=== PATIENT | female | born 1960 | race Caucasian/White ===

== ENCOUNTER → 2016-04-28 | Outpatient (CLI) | payer OTHER ==
--- NOTE | 2016-04-28 23:35 | WWHP ---
DATE OF SERVICE: 04/28/2016 CHIEF COMPLAINT: Patient is here for her routine gynecologic exam and mammogram HPI: This is a 55-year-old G1, P0-0-0-1-0 with a LMP of 2006. She states it has been 15 to 20 years since her last pelvic exam. She denies any postmenopausal bleeding. She has infrequent hot flashes and this is much improved from several years ago. She is without gynecologic complaints. PAST MEDICAL HISTORY: She is status post aortic valve replacement in 2016. She denies any other medical problems. Dr. Schuster is her primary care physician. MEDICATIONS: 1. Metoprolol 25 mg b.i.d. 2. Lovastatin 20 mg daily. 3. Ecotrin 325 mg daily. 4. Fluticasone cream 0.05% b.i.d. ALLERGIES: Known drug allergies but she does have a sensitivity to nickel. PAST SURGICAL HISTORY: D&C in the past, aortic valve replacement in 2015 and this was a bovine valve replacement, tonsillectomy in the past, laparoscopy in the 1980s. PAST OBSTETRICAL HISTORY: One spontaneous that did require D&C. 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 SOCIAL HISTORY: She admits to smoking 1 pack of cigarettes per day and has about 4 alcoholic drinks per week. She denies drug use. She is and is not seeing anybody at this time. 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 She also works at the [employer]. 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 FAMILY HISTORY: Mother had lung cancer. Father had an LA. Mother also had borderline diabetes. REVIEW OF SYSTEMS: Weight has been stable. She denies respiratory, cardiac, or GI problems. PHYSICAL EXAM: Blood pressure 121/67. Height 5 feet 4 inches. Weight 135 pounds. Temperature 97.5, pulse 82. This a well-developed, well-nourished white female who is alert and oriented x3, in no acute distress. HEENT: Within normal limits. NECK: Supple without mass or thyromegaly. CHEST AND LUNGS: Clear to auscultation. HEART: Regular rate and rhythm. BREASTS: Without mass or discharge. Axillary exam is negative for adenopathy. BACK: Negative for CVA tenderness. ABDOMEN: Soft, nontender, without palpable masses. PELVIC EXAM: External genitalia reveals mild to moderate atrophy without lesions. Cervix and vagina reveal mild atrophy without lesions. There is no evidence of prolapse. The uterus is mid to anterior, nongravid size and nontender. There are no palpable adnexal masses or tenderness. Rectovaginal exam is negative for mass or tenderness and is negative for occult blood. EXTREMITIES: Nontender. IMPRESSION: 1. A 55-year-old menopausal female with normal gynecologic exam. 2. Smoker. PLAN: 1. Pap smear was performed. 2. Self-breast examination was discussed. 3. Mammogram will be done today. 4. Osteoporosis prevention was discussed. 5. I have recommended that she quit smoking. If she is unable to quit, I have recommended she try to cut back as much as possible. 6. I stressed importance of having annual mammograms and gynecologic exams. 7. She will return in one year.
--- NOTE | 2016-04-30 07:44 | MM ---
Reason for exam: screening (asymptomatic). Last mammogram was performed 14 years ago. History: Patient is postmenopausal and is nulliparous. Physical Findings: A clinical breast exam by your physician is recommended on an annual basis and results should be correlated with mammographic findings. MG Screening Mammo w CAD Bilateral CC and MLO view(s) were taken. There is no discrete abnormality. ASSESSMENT: Negative, BI-RAD 1 RECOMMENDATION: Routine screening mammogram of both breasts in 1 year.
== END | disposition home or self-care (01) ==
LOC: WWCWWP 15:12
PROVIDERS: ATTEND Obstetrics & Gynecology
DX: Z12.31 Encounter for screening mammogram for malignant neoplasm of breast (principal)

== ENCOUNTER → 2019-07-04 | Outpatient (CLI) | payer OTHER ==
--- NOTE | 2019-07-05 08:10 | MM ---
Reason for exam: clinical finding. Last mammogram was performed 3 years and 2 months ago. History: Patient is postmenopausal and is nulliparous. Indicated problem(s): lump or thickening in the left breast. Physical Findings: Nurse Summary: 4cm nodule in the left breast at 12 o'clock (nurse mj). MG 3D Diag Mammo W/Cad GUEVARA Bilateral CC and MLO view(s) were taken. XCCL view(s) were taken of the right breast. Prior study comparison: April 28, 2016, bilateral MG screening mammo w CAD. The breast tissue is heterogeneously dense. This may lower the sensitivity of mammography. There is a 5.0cm mass deep to the left BB marker centered at 12 o'clock. There is overlying skin thickening and nipple retraction. Right focal asymmetry 6-7cm improves on XCCL and spot views however precautionary right upper outer quadrant ultrasound will be performed. These results were verbally communicated with the patient and result sheet given to the patient on 07/04/19. ASSESSMENT: Incomplete: need additional imaging evaluation, BI-RAD 0 RECOMMENDATION: Ultrasound of both breasts. (right upper outer quadrant and left palpable with axilla)
--- NOTE | 2019-07-05 08:12 | USB ---
Reason for exam: additional evaluation requested from abnormal screening. History: Patient is postmenopausal and is nulliparous. US Breast Limited BILAT Left limited breast ultrasound including focal area of concern, retroareolar and axilla demonstrates a 5.3 x 2.2 x 4.7cm solid, hypoechoic, vascular lesion at 12 o'clock. Right limited breast ultrasound including focal area of concern, retroareolar and axilla demonstrates dense tissue. No suspicious right mass. These results were verbally communicated with the patient and result sheet given to the patient on 07/04/19. ASSESSMENT: Highly suggestive of malignancy, BI-RAD 5 RECOMMENDATION: Ultrasound core biopsy of the left breast. Called Dr. Garcia's office with mammographic findings and has scheduled an appointment for the patient with Dr. Nix. Biopsy scheduled for 07/07/19 at 9:00. PRELIMINARY REPORT CALLED AND FAXED TO DR. NIX ON 07/05/19.
== END | disposition home or self-care (01) ==
LOC: RADMAMWWP 11:24
PROVIDERS: ATTEND Family Medicine
DX: N63.20 Unspecified lump in the left breast, unspecified quadrant (principal); R92.8 Other abnormal and inconclusive findings on diagnostic imaging of breast; Z78.0 Asymptomatic menopausal state
CPT/HCPCS: 77066; 76642; G0279; 77062

== ENCOUNTER → 2019-07-05 | Outpatient (CLI) | payer OTHER | END | disposition home or self-care (01) | LOC: LABWHC1 10:39 | PROVIDERS: ATTEND Student in an Organized Health Care Education/Training Program | DX: U07.1 COVID-19 (principal) | CPT/HCPCS: 87635 ==

== ENCOUNTER → 2019-07-07 | Day surgery (SDC) | payer OTHER ==
[2019-07-07 08:37] VITALS: RESP 16; TEMP 98.3
[2019-07-07 09:53] VITALS: BP 122/80; PULSE 61
--- NOTE | 2019-07-07 09:57 | USB ---
EXAMINATION TYPE: US biopsy breast VAD LT DATE OF EXAM: 07/07/2019 CLINICAL HISTORY: R92.8 ABNORMAL MAMMOGRAM. Abnormal ultrasound. Palpable abnormality left breast. TECHNIQUE: Ultrasound guided core biopsy of left breast. COMPARISON: Prior bilateral breast ultrasound and mammogram July 04, 2019 FINDINGS: The procedure of ultrasound guided core biopsy was explained to the patient. Benefits, alt ernatives, and risks were discussed. An informed consent was then obtained. The patient was placed in supine positioning for imaging and for the procedure. Preprocedure ultraso und redemonstrates large heterogeneous oval hypoechoic mass with some vascularity 12:00 position zone A left breast measuring just over 5 cm long axis on prior study. The overlying skin was prepped and draped in usual sterile fashion. Lidocaine was used as anesthetic into the skin and subcutaneous tis leif up to area of concern in the left breast. Under ultrasound guidance, a vacuum assisted biopsy gun device was used to obtain 4 core samples. Fo llowing this, a biopsy clip was left in lesion. The patient tolerated the procedure well without any immediate complication. The patient was kept in the radiology department for short stay after the procedure and then discharged home in stable condi tion. Postprocedure mammogram deferred due to current COVID precautions. Last ultrasound image saved shows clip within the large lesion. IMPRESSION: Successful, uncomplicated ultrasound guided core biopsy of area of concern in the left br east, full pathology results to follow. Intermediate to high index of suspicion noted at time of procedure.
== END ==
LOC: RADUSWWP 08:10
PROVIDERS: ATTEND Student in an Organized Health Care Education/Training Program
DX: C50.912 Malignant neoplasm of unspecified site of left female breast (principal); Z17.0 Estrogen receptor positive status [ER+]
CPT/HCPCS: 88305; 88342; 88341; 19083; A4648; J2001

== ENCOUNTER → 2019-07-19 | Outpatient (CLI) | payer OTHER ==
--- NOTE | 2019-07-19 09:45 | CT ---
EXAMINATION TYPE: CT ChestAbdPelvis w con DATE OF EXAM: 07/19/2019 COMPARISON: None. HISTORY: Invasive lobular carcinoma left breast on biopsy july 06. CT DLP: 1059 mGycm. Automated Exposure Control for Dose Reduction was Utilized. CONTRAST: CT scan of the thorax, abdomen and pelvis is performed with IV Contrast, patient injected with 100 mL of Isovue M300. FINDINGS: LUNGS: Mild to moderate underlying emphysematous changes are present. No suspicious nodules or masses . No pleural effusion or pneumothorax noted bilaterally. MEDIASTINUM: There are no greater than 1 cm hilar or mediastinal lymph nodes. No pericardial effusi on is seen. Overlying sternal wires are seen. Metallic aortic valve noted. There is a 79-year-old an eurysm up to 4.3 cm in diameter without extension into the ascending thoracic aorta. OTHER: Background of fairly dense fibroglandular tissue noted bilaterally in both breasts biopsy clip noted axial image 21. Difficult to identify mass on background dense tissue but likely best seen nestor suring roughly 3.4 cm long axis coronal image 15 12:00 position left breast. No suspicious axillary a denopathy noted bilaterally. LIVER/GB: No significant abnormality is appreciated. PANCREAS: No significant abnormality is seen. SPLEEN: No significant abnormality is seen. ADRENALS: No significant abnormality is seen. KIDNEYS: Symmetric cortical medullary uptake and excretion from both kidneys seen bilaterally. There is a 4.4 cm central thin-walled cyst in the left kidney having some mass effect on the left renal pel vis causing asymmetric left-sided mild hydronephrosis without hydroureter. Bladder poorly distended a nd thus suboptimally evaluated. BOWEL: Low-lying cecum into the right pelvis. No suspicious small or large bowel dilatation. GENITAL ORGANS: Anteverted uterus. Few adjacent pelvic phleboliths. LYMPH NODES: No greater than 1cm abdominal or pelvic lymph nodes are appreciated. OSSEOUS STRUCTURES: Facet arthropathy lower lumbar levels. Slight S-shaped scoliotic curvature with m ild to moderate multilevel spurring in the visualized spine. OTHER: No significant additional abnormality is seen. IMPRESSION: 1. Poor visualization of known 12:00 left breast mass or neoplasm on background dense tissue on CT. No evidence for metastatic disease. 2. Evidence for prior aortic valve replacement surgery with 4.3 cm ascending aortic aneurysm, correla te clinically. 3. Mild left-sided hydronephrosis due to mass effect from central 4.4 cm thin-walled cyst.
== END | disposition home or self-care (01) ==
LOC: RADCTMAIN 08:25
PROVIDERS: ATTEND Student in an Organized Health Care Education/Training Program
DX: I71.2 Thoracic aortic aneurysm, without rupture (principal); N13.30 Unspecified hydronephrosis; N28.1 Cyst of kidney, acquired; C50.912 Malignant neoplasm of unspecified site of left female breast
CPT/HCPCS: 71260; 74177; Q9967

== ENCOUNTER → 2019-07-20 | Outpatient (CLI) | payer OTHER ==
[2019-07-20 10:28] LABS: Basophils # (A) 0.1 k/uL (0-0.2); Basophils % (A) 1 %; Eosinophils # (A) 0.2 k/uL (0-0.7); Eosinophils % (A) 2 %; HCT 45.3 % (34.0-46.0); HGB 14.3 gm/dL (11.4-16.0); Lymphocytes # (A) 2.6 k/uL (1.0-4.8); Lymphocytes % (A) 30 %; MCH 33.3 pg (25.0-35.0); MCHC 31.6 g/dL (31.0-37.0); MCV 105.4 fL (80.0-100.0); Macrocytosis Slight; Mean Platelet Volume 7.2; Monocytes # (A) 0.5 k/uL (0-1.0); Monocytes % (A) 5 %; Neutrophils # (A) 5.3 k/uL (1.3-7.7); Neutrophils % (A) 60 %; Platelet Count 310 k/uL (150-450); RDW 12.4 % (11.5-15.5); WBC 8.8 k/uL (3.8-10.6)
[2019-07-20 10:41] LABS: ALT 14 U/L (4-34); AST 34 U/L (14-36); African American GFR (CKD) >90 (>60 ml/min/1.73 sqM); Alkaline Phosphatase 111 U/L (38-126); Anion Gap 8 mmol/L; Blood Urea Nitrogen 11 mg/dL (7-17); Calcium 10.1 mg/dL (8.4-10.2); Carbon Dioxide 29 mmol/L (22-30); Chloride 100 mmol/L (98-107); Glucose 97 mg/dL (74-99); LDH 579 U/L (313-618); Non-African American GFR(CKD) >90 (>60 ml/min/1.73 sqM); Potassium 4.9 mmol/L (3.5-5.1); Sodium 137 mmol/L (137-145); Total Bilirubin 0.5 mg/dL (0.2-1.3); Total Protein 7.9 g/dL (6.3-8.2)
--- NOTE | 2019-07-21 08:10 | BMR ---
EXAMINATION TYPE: MR breast BILAT wo/w con DATE OF EXAM: 07/20/2019 COMPARISON: Diagnostic mammogram dated 07/04/2019 and bilateral breast ultrasound also dated 07/04/2019. Biopsy of the left breast dated 07/07/2019. HISTORY: Lt breast cancer (invasive lobular carcinoma), Estrogen receiptor positive TECHNIQUE: A series of fat and water weighted images in the long and short axis views of both breasts are obtained in conjunction with dynamic contrast MRI with subtraction technique. The patient was i njected with 6 mL intravenous Gadavist gadolinium contrast. Three-dimensional and additional postpr ocessing imaging is created on independent workstation and reviewed during official interpretation of this study. FINDINGS: The breasts are composed of heterogeneous fibroglandular tissue with mild background parenchymal enha ncement. Susceptibility artifact from the biopsy marker is seen within the left breast mass (biopsy proven inv asive lobular carcinoma) measuring 3.0 x 3.9 x 6.5 cm in anterior posterior by transverse by cranioca udal dimension. This mass is centered at the 12:00 position. There is extension of nonmass enhancemen t from the posterior margin of the left breast mass towards the axillary tail and pectoralis muscle s uch as on postcontrast series 701 image 298 measuring 2.8 cm. There is no abnormal enhancement at thi s time of the adjacent pectoralis muscle. There is extent of this mass from the upper outer quadrant into the upper inner quadrant and lower outer quadrant. There is overlying skin thickening and nipple retraction. The mass also deviates the nipple laterally. Abnormal enhancement of the skin diffusely is seen on the left most prominent directly over the mass with concern for skin involvement. Enhancem ent of this mass is heterogenous with type I-III kinetics (plateau through washout). No suspicious mass or nonmass enhancement is seen within the right breast, however dense breast tissu e does slightly limit the examination. Median sternotomy wires creates susceptibility artifact limiti ng evaluation of abnormal internal mammary adenopathy. No grossly enlarged axillary lymph nodes bilat erally. Evidence of a known aortic aneurysm in the ascending aorta and aortic valvular replacement ar e also present. IMPRESSION: 1. BI-RADS [id number]-lkovjd left breast carcinoma with the mass measuring 3.0 x 3.9 x 6.5 cm and nonma ss enhancement contiguous with the mass extending into the axillary tail measuring an additional 2.8 cm. Additionally there is concern for skin involvement. 2. No suspicious axillary adenopathy bilaterally. No suspicious mass or nonmass enhancement of the ri ght breast.
== END | disposition home or self-care (01) ==
LOC: RADMRIMAIN 09:46
PROVIDERS: ATTEND Internal Medicine Hematology & Oncology
DX: C50.612 Malignant neoplasm of axillary tail of left female breast (principal); C50.212 Malignant neoplasm of upper-inner quadrant of left female breast; C50.912 Malignant neoplasm of unspecified site of left female breast; Z17.0 Estrogen receptor positive status [ER+]
CPT/HCPCS: 80053; 83615; 85025; 36415; C8937; C8908; A9585; 77049

== ENCOUNTER → 2019-07-25 | Outpatient (CLI) | payer OTHER ==
--- NOTE | 2019-07-25 14:56 | NM ---
EXAMINATION TYPE: NM bone scan whole body DATE OF EXAM: 07/25/2019 COMPARISON: 07/19/2019 HISTORY: Breast cancer Delayed whole-body scanning was performed following the injection of 22.9 mCi Tc 99m MDP. Images acq uired 3.5 hours post injection. FINDINGS: Abnormal uptake involving the thoracic spine and lower lumbar spine on the right most likel y degenerative. Abnormal uptake involving the left greater trochanter nonspecific. IMPRESSION: 1. Abnormal uptake throughout the vertebral column most intense uptake seen in the lower lumbar spine . Findings are nonspecific but likely degenerative. 2. Nonspecific uptake greater trochanter left hip. No corresponding CT abnormality is seen. If clinic ally warranted MRI could BE obtained to assess for trochanteric bursitis and to exclude underlying me tastases.
== END | disposition home or self-care (01) ==
LOC: RADNMMAIN 10:08
PROVIDERS: ATTEND Internal Medicine Hematology & Oncology
DX: M48.8X6 Other specified spondylopathies, lumbar region (principal); C50.212 Malignant neoplasm of upper-inner quadrant of left female breast
CPT/HCPCS: 78306; A9503

== ENCOUNTER → 2019-11-08 | Outpatient (CLI) | payer OTHER ==
--- NOTE | 2019-11-08 16:29 | BD ---
EXAMINATION TYPE: Axial Bone Density DATE OF EXAM: 11/08/2019 COMPARISON: NONE CLINICAL HISTORY: Postmenopausal screening Height: 5 FT 4 IN Weight: 114 FRAX RISK QUESTIONS: Alcohol (3 or more units per day): NO Family History (Parent hip fracture): NO Glucocorticoids (More than 3mos): NO (Ex: prednisone, prednisolone, methylprednisolone, dexamethasone, and hydrocortisone). History of Fracture in Adulthood: YES Secondary Osteoporosis: 1. Type 1 Diabetes: NO 2. Hyperthyroidism: NO 3. Menopause before 45: YES 4. Malnutrition: NO 5. Chronic liver disease: NO Rheumatoid Arthritis: NO Current Tobacco Use: YES RISK FACTORS HISTORY OF: Family History of Osteoporosis: NO Active: YES Postmenopausal woman: EARLY 40'S MEDICATIONS: Additional Medications: HORMONE [place] , LIPITOR, METOPROLOL, BABY ASPIRIN Additional History: BREAST CANCER 2019 EXAM MEASUREMENTS: Bone mineral densitometry was performed using the [employer] System. Bone mineral density as measured about the Lumbar spine is: ----- L1-L4(G/cm2): 1.157 T Score Values are as follows: ----- L2: -1.3 ----- L3: 0.2 ----- L4: 0.9 ----- L1-L4: -0.2 BASELINE Bone mineral density about the R hip (g/cm2): 0.686 Bone mineral density about the L hip (g/cm2): 0.797 T Score values are as follows: -----R Neck: -2.5 -----L Neck: -1.7 -----R Total: -2.4 -----L Total: -2.1 BASELINE IMPRESSION: Osteoporosis (T Score less than -2.5). There is increased fracture risk and therapy is usually indicated based on age. Re-Screen 1-2 years. NOTE: T-SCORE=SD OF THE YOUNG ADULT MEAN.
== END | disposition home or self-care (01) ==
LOC: RADBDWWP 09:08
PROVIDERS: ATTEND Internal Medicine Hematology & Oncology
DX: M81.8 Other osteoporosis without current pathological fracture (principal); C50.212 Malignant neoplasm of upper-inner quadrant of left female breast; Z79.890 Hormone replacement therapy
CPT/HCPCS: 77080

== ENCOUNTER → 2019-11-30 | Outpatient (CLI) | payer OTHER ==
--- NOTE | 2019-11-30 10:23 | USB ---
Reason for exam: clinical finding. History: Patient is postmenopausal, has history of breast cancer at age 59, and is nulliparous. Malignant US biopsy breast VAD LT of the left breast, July 07, 2019. Physical Findings: Nurse Summary: large fixed lump left breast upper half (nurse mj). US Breast BILAT Right complete breast ultrasound includes all four quadrants, the retroareolar region and axilla. Finding demonstrates no cystic or solid lesion seen. Left complete breast ultrasound includes all four quadrants, the retroareolar region and axilla. Finding demonstrates a 5.6 x 1.8 x 4.6cm solid, hypoechoic lesion at 12 o'clock. Difficult to accurately measure. These results were verbally communicated with the patient and result sheet given to the patient on 11/30/19. ASSESSMENT: Known biopsy proven malignancy, BI-RAD 6 RECOMMENDATION: Surgical consultation of the left breast. Called Dr. Solorzano's office with mammographic findings and has scheduled an appointment for the patient for 12/12/19. PRELIMINARY REPORT CALLED AND FAXED TO DR. SOLORZANO ON 11/30/19
== END | disposition home or self-care (01) ==
LOC: RADUSWWP 08:39
PROVIDERS: ATTEND Internal Medicine Hematology & Oncology
DX: Z08 Encounter for follow-up examination after completed treatment for malignant neoplasm (principal); Z85.3 Personal history of malignant neoplasm of breast

== ENCOUNTER → 2021-01-29 | Outpatient (CLI) | payer OTHER ==
--- NOTE | 2021-01-30 09:36 | MM ---
Reason for exam: additional evaluation requested from prior study. Last mammogram was performed 1 year and 7 months ago. History: Patient is postmenopausal, has history of breast cancer at age 59, and is nulliparous. Malignant US biopsy breast VAD LT of the left breast, July 07, 2019. Taking antineoplastic beginning at age 2. Physical Findings: Nurse did not find any significant physical abnormalities on exam. MG Diagnostic Mammo RT w CAD CC and MLO view(s) were taken of the right breast. Prior study comparison: July 04, 2019, bilateral MG 3d diag mammo w/cad GUEVARA. April 28, 2016, bilateral MG screening mammo w CAD. The breast tissue is extremely dense which could obscure a lesion on mammography. No significant new findings when compared with previous films. These results were verbally communicated with the patient and result sheet given to the patient on 01/29/21. ASSESSMENT: Benign, BI-RAD 2 RECOMMENDATION: Routine screening mammogram of the right breast in 1 year.
== END | disposition home or self-care (01) ==
LOC: RADMAMWWP 13:34
PROVIDERS: ATTEND Internal Medicine Hematology & Oncology
DX: R92.2 Inconclusive mammogram (principal); Z85.3 Personal history of malignant neoplasm of breast; Z78.0 Asymptomatic menopausal state
CPT/HCPCS: 77065

== ENCOUNTER → 2022-02-02 | Outpatient (CLI) | payer OTHER ==
--- NOTE | 2022-02-02 10:30 | BD ---
EXAMINATION TYPE: Axial Bone Density DATE OF EXAM: 02/02/2022 COMPARISON: 11/08/2019 CLINICAL HISTORY: 61 years old Female. ICD-10 CODE: C50.212 BREAST CA Height: 129 Weight: 63 FRAX RISK QUESTIONS: Alcohol (3 or more units per day): NO Family History (Parent hip fracture): NO History of Fracture in Adulthood: NO Secondary Osteoporosis: YES 3. Menopause before 45: 44 Current Tobacco Use: YES RISK FACTORS HISTORY OF: History of Wrist Fracture: YES RIGHT When: 2008 Family History of Osteoporosis: NO Active: YES Diet low in dairy products/other sources of calcium: NO Postmenopausal woman: YES Lost more than 2 inches in height since high school: NO Frequent falls: NO Poor Health: NO MEDICATIONS: Osteoporosis Medications: YES Which medication: Fosamax How Lon YEAR Additional Medications: YES ANASTROZOLE , LIPITOR , METOPROLOL Additional History: YES LEFT BREAST INVASIVE LOBULAR CA , RADIATION , AORTIC VALVE REPLACEMENT 2016 EXAM MEASUREMENTS: Bone mineral densitometry was performed using the [employer] System. Bone mineral density as measured about the Lumbar spine is: ----- L1-L4(G/cm2): 1.115 T Score Values are as follows: ----- L1: -0.9 ----- L2: -1.6 ----- L3: -0.2 ----- L4: 0.0 ----- L1-L4: -0.5 Bone mineral density has: Decreased -3.6% since study of: 11/08/2019 Bone mineral density about the R hip (g/cm2): 0.708 Bone mineral density about the L hip (g/cm2): 0.742 T Score values are as follows: -----R Neck: -2.2 -----L Neck: -1.7 -----R Total: -2.4 -----L Total: -2.1 Bone mineral density has: a 0.0% since study of: 11/08/2019 FRAX%s: The graph provided illustrates a 18.4% chance for a major osteoporotic fx and a 5.1% chance f or the hips probability for fx in 10 years time. IMPRESSION: Osteopenia (T Score between -2.5 and -1). There is slightly increased risk of fracture and the patient may be considered for treatment. Re-Screen 2-5 years. NOTE: T-SCORE=SD OF THE YOUNG ADULT MEAN.
--- NOTE | 2022-02-03 10:13 | MM ---
Reason for Exam: Screening (asymptomatic). Last mammogram was performed 2 year(s) and 7 month(s) ago. Patient History: Menarche at age 13. Patient has no children. Postmenopausal. Breast cancer, age 59. 07/07/2019, Malignant Core Biopsy on the left side. Prior Study Comparison: 04/28/2016 Bilateral Screening Mammogram, [facility]. 07/04/2019 Bilateral Diagnostic Mammogram, [facility]. 01/29/2021 Right Diagnostic Mammogram, [facility]. Tissue Density: Right: The breast tissue is heterogeneously dense. This may lower the sensitivity of mammography. Analyzed By CAD. Overall Assessment: Benign, BI-RAD 2 Management: Screening Mammogram of the right breast in 1 year. Electronically signed and approved by: James Santiago D.O.
== END | disposition home or self-care (01) ==
LOC: RADMAMWWP 09:01
PROVIDERS: ATTEND Internal Medicine Hematology & Oncology
DX: Z12.31 Encounter for screening mammogram for malignant neoplasm of breast (principal); C50.212 Malignant neoplasm of upper-inner quadrant of left female breast; M85.89 Other specified disorders of bone density and structure, multiple sites; Z78.0 Asymptomatic menopausal state; Z95.2 Presence of prosthetic heart valve
CPT/HCPCS: 77067; 77080

== ENCOUNTER → 2022-09-29 | Outpatient (CLI) | payer OTHER ==
[2022-09-29 16:07] LABS: Albumin 4.9 d/dL (3.8-4.9); Albumin/Globulin Ratio 2.13 Ratio (1.60-3.17); Bilirubin, Conjugated 0.24 mg/dL (0.20-0.40); Bilirubin,Unconjugated 0.56 mg/dL (0.20-1.00); Globulin 2.3 d/dL (1.6-3.3); Total Bilirubin 0.8 mg/dL (0.3-1.2); Total Protein 7.2 d/dL (6.2-8.2)
== END | disposition home or self-care (01) ==
LOC: LABWHC1 09:32
PROVIDERS: ATTEND Surgery
DX: R74.01 Elevation of levels of liver transaminase levels (principal)
CPT/HCPCS: 36415; 80076

== ENCOUNTER 2023-05-11 06:20 | Day surgery (SDC) | payer OTHER ==
[2023-05-11 06:57] VITALS: RESP 16; TEMP 96.9
[2023-05-11] MEDS: LACTATED RINGERS 1,000 ML IV SCH (07:11)
[2023-05-11] MEDS: BENZOCAINE SPRAY 1 CAN TOPICAL ONE (07:25)
[2023-05-11] MEDS ORDERED: PROPOFOL 10 MG/ML 20 ML VIAL IV ONE (07:30)
[2023-05-11] MEDS ORDERED: LIDOCAINE 1% INJ 10MG/ML (20 ML MDV) ONE (07:30)
[2023-05-11 07:58] LABS: African American GFR (CKD) >90 (>60 ml/min/1.73 sqM); Anion Gap 9 mmol/L; Blood Urea Nitrogen 11 mg/dL (7-17); Calcium 9.9 mg/dL (8.4-10.2); Carbon Dioxide 26 mmol/L (22-30); Chloride 106 mmol/L (98-107); Glucose 113 mg/dL (74-99); Non-African American GFR(CKD) 83 (>60 ml/min/1.73 sqM); Potassium 3.9 mmol/L (3.5-5.1); Sodium 141 mmol/L (137-145)
--- NOTE | 2023-05-11 08:19 | ECHOT ---
TRANSESOPHAGEAL ECHOCARDIOGRAM INDICATION: Persistent atrial fibrillation to rule out intracardiac thrombus prior to cardioversion. PROCEDURE NOTE: After obtaining informed consent, transesophageal echocardiogram was performed in left lateral position using an Omniplane probe. Local and IV sedation were obtained by the applications support engineer. FINDINGS: 1. There is no intracardiac thrombus within the left atrial appendage, left atrium, right atrium, right ventricle, or left ventricle. 2. Left atrium appears severely enlarged. 3. Right atrium and right ventricle seen within normal limits. 4. Left ventricle has normal size and systolic function with an ejection fraction of 55%. 5. There is a prosthetic valve in aortic position without significant stenosis or regurgitation. Ascending aorta appears aneurysmally dilated measuring 4 cm. There is mild mitral and tricuspid regurgitation noted. Interatrial septum, there is no evidence of [id number] shunt by color-flow Doppler or [id number]-[id number]-[id number] shunt by agitated saline contrast study. CONCLUSIONS: 1. No intracardiac thrombus. 2. Severe left atrial enlargement. 3. Normally functioning bioprosthetic valve in aortic position. PLAN: The patient will undergo cardioversion. MMODL / IJN: [id number] /
--- NOTE | 2023-05-11 08:30 | ECHOS ---
STRESS ECHOCARDIOGRAM PROCEDURE PERFORMED: Cardioversion note. INDICATION: Persistent atrial fibrillation. DESCRIPTION OF PROCEDURE: After making sure that the patient is adequately anticoagulated with Eliquis, ruling out an intracardiac thrombus with a transesophageal echo, the patient underwent cardioversion with synchronized DC current of 150 joules. She converted to sinus rhythm following a single shock. The patient will continue the anticoagulant and will follow up with me in the office in a week's time. MMODL / IJN: [id number] /
[2023-05-11 09:23] VITALS: BP 121/80; PULSE 71
[2023-05-11] MEDS ORDERED: METOPROLOL TARTRATE 25 MG TAB PO SCH (21:00)
== END 2023-05-11 09:19 | disposition home or self-care (01) ==
LOC: OR 06:20
PROVIDERS: ATTEND Internal Medicine Cardiovascular Disease
DX: I48.19 Other persistent atrial fibrillation (principal); I51.7 Cardiomegaly; I10 Essential (primary) hypertension; E78.5 Hyperlipidemia, unspecified; J45.909 Unspecified asthma, uncomplicated; F17.210 Nicotine dependence, cigarettes, uncomplicated; M19.90 Unspecified osteoarthritis, unspecified site; Z79.01 Long term (current) use of anticoagulants; Z79.899 Other long term (current) drug therapy; Z79.82 Long term (current) use of aspirin
CPT/HCPCS: 93312; 93320; 93325; 92960; 80048; J2001; J2704

== ENCOUNTER 2023-12-07 10:47 | Day surgery (SDC) | payer OTHER ==
[2023-12-06 09:58] VITALS: BMI 19.9
[2023-12-07] MEDS: IV FLUID CONTINUATION 1,000 ML IV ONE (11:13)
[2023-12-07 11:19] VITALS: RESP 16; TEMP 97
[2023-12-07] MEDS: LACTATED RINGERS 1,000 ML IV SCH (11:24)
[2023-12-07] MEDS ORDERED: PROPOFOL 10 MG/ML 20 ML VIAL IV ONE (11:42)
[2023-12-07] MEDS ORDERED: LIDOCAINE 1% INJ 10MG/ML (20 ML MDV) ONE (11:42)
--- NOTE | 2023-12-07 11:46 | P.GSHP ---
History of Present Illness H&P Date: 12/07/23 Chief Complaint: Colon cancer screening 63-year-old female here for colonoscopy. Patient has had some unintentional weight loss. No bowel complaints. No rectal bleeding. No family history of colon cancer. She has not had a colonoscopy before. Past Medical History Past Medical History: Atrial Fibrillation, Asthma, Cancer, Osteoarthritis (OA), Skin Disorder Additional Past Medical History / Comment(s): Recent unexplained weight loss of 15 lbs over 2 months. Chronic Psoriasis, rash on thighs and ankles. CHILDHOOD ASTHMA. Hx left breast cancer 2020, had surgery and 6 weeks of radiation. History of Any Multi-Drug Resistant Organisms: None Reported Past Surgical History: Adenoidectomy, Breast Surgery, Cardiac Valve Replacement, Heart Catheterization, Tonsillectomy Additional Past Surgical History / Comment(s): LAPROSCOPY TO EVAULATE OVARIES, left mastectomy with implant, open heart 2016 - valve replacement, HANANE, Cardioversion. Past Anesthesia/Blood Transfusion Reactions: No Reported Reaction Smoking Status: Current every day smoker - Past Family History Mother Family Medical History: Cancer Additional Family Medical History / Comment(s): Lung cancer with metastasis. Father Family Medical History: Coronary Artery Disease (CAD), Hypertension, Myocardial Infarction ([place]) Medications and Allergies Home Medications Medication Instructions Recorded Confirmed Type Multivit-Min/FA/Lycopen/Lutein 1 tab PO DAILY 05/10/15 12/07/23 History [Centrum Silver Tablet] Apixaban [Eliquis] 5 mg PO BID 05/07/23 12/07/23 History Letrozole 2.5 mg PO DAILY 05/07/23 12/07/23 History Aspirin [Adult Low Dose Aspirin EC] 81 mg PO DAILY 12/06/23 12/07/23 History Atorvastatin [Lipitor] 20 mg PO QAM 12/06/23 12/07/23 History Calcium Carbonate 500 mg PO DAILY 12/06/23 12/07/23 History Cholecalciferol [Vitamin D3 (25 25 mcg PO DAILY 12/06/23 12/07/23 History Mcg = 1000 Iu)] Metoprolol Tartrate [Lopressor] 25 mg PO QAM 12/06/23 12/07/23 History Allergies Allergy/AdvReac Type Severity Reaction Status Date / Time No Known Allergies Allergy Verified 12/07/23 11:12 Surgical - Exam Vital Signs Temp Pulse Resp BP Pulse Ox 97.0 F L 73 16 158/83 98 12/07/23 11:17 12/07/23 11:17 12/07/23 11:17 12/07/23 11:17 12/07/23 11:17 Physical exam: General: Well-developed, well-nourished HEENT: Normocephalic, sclerae nonicteric Abdomen: Nontender, nondistended Extremities: No edema Neuro: Alert and oriented Assessment and Plan (1) Colon cancer screening Narrative/Plan: Will proceed with colonoscopy at this time. Current Visit: Yes Status: Acute Code(s): Z12.11 - SNOMED Code(s): 636541206
--- NOTE | 2023-12-07 11:58 | P.PCN ---
Date of Procedure: 12/07/23 Procedure(s) Performed: PREOPERATIVE DIAGNOSIS: Screening with history of weight loss POSTOPERATIVE DIAGNOSIS: Right sided colitis with superficial ulcerations, ascending colon polyp PROCEDURE: Colonoscopy with snare polypectomy and biopsy ANESTHESIA: MAC SURGEON: Joshua Boyd M.D. SPECIMENS: Right sided colitis, polyp ENDOSCOPIC PROCEDURE: The patient was placed on the endoscopy table in the left decubitus position. The Olympus colonoscope was inserted into the anus and passed under direct visualization to the base of the cecum. The appendiceal orifice was visualized. From that point the scope was slowly withdrawn inspecting all surfaces carefully. There were no neoplastic inflammatory or p olypoid lesions throughout the cecum. In the ascending colon there was noncircumferential colitis present. A few small superficial ulcerations were noted. Multiple biopsies using the cold biopsy forceps took place. Just distal to that a small polyp was seen and removed using the snare with cautery technique. The transverse descending sigmoid and rectum appeared normal. The patient had no visible diverticulosis. The patient's prep was slightly suboptimal and there were portions of the mucosal that were not well-visualized. Digital rectal examination was normal. The patient was taken to the recovery room in stable condition per anesthesia guidelines. RECOMMENDATIONS: Await biopsy results. Consider shorter-term follow-up given the patient's poor prep.
[2023-12-07 12:24] VITALS: BP 138/93; PULSE 59
== END 2023-12-07 12:47 | disposition home or self-care (01) ==
LOC: ORWHC2ENDO 10:47
PROVIDERS: ATTEND Surgery
DX: Z12.11 Encounter for screening for malignant neoplasm of colon
CPT/HCPCS: 45380; 45385; 88305

== ENCOUNTER 2024-01-25 12:52 | Inpatient (IN) | payer OTHER ==
--- NOTE | 2024-01-25 13:24 | ED ---
General Adult HPI - General Chief complaint: Arrhythmia/Palpitations Stated complaint: racing heart/SOB Time Seen by Provider: 01/25/24 13:06 Source: patient, RN notes reviewed, old records reviewed Mode of arrival: ambulatory Limitations: no limitations - History of Present Illness Initial comments: 63-year-old female presenting with palpitations, racing heart sensation. History of atrial fibs. Patient currently on metoprolol and Eliquis. She stat es that she had previous episodes similar to this about 9 or 10 months ago which required cardioversion. She states that over the past several days she has had cough and upper respiratory infection. No fever. No central chest pain. - Related Data Home Medications Medication Instructions Recorded Confirmed Multivit-Min/FA/Lycopen/Lutein 1 tab PO DAILY 05/10/15 12/07/23 [Centrum Silver Tablet] Apixaban [Eliquis] 5 mg PO BID 05/07/23 12/07/23 Letrozole 2.5 mg PO DAILY 05/07/23 12/07/23 Aspirin [Adult Low Dose Aspirin EC] 81 mg PO DAILY 12/06/23 12/07/23 Atorvastatin [Lipitor] 20 mg PO QAM 12/06/23 12/07/23 Calcium Carbonate 500 mg PO DAILY 12/06/23 12/07/23 Cholecalciferol [Vitamin D3 (25 25 mcg PO DAILY 12/06/23 12/07/23 Mcg = 1000 Iu)] Metoprolol Tartrate [Lopressor] 25 mg PO QAM 12/06/23 12/07/23 Allergies Allergy/AdvReac Type Severity Reaction Status Date / Time No Known Allergies Allergy Verified 01/25/24 12:57 Review of Systems ROS Statement: Those systems with pertinent positive or pertinent negative responses have been documented in the HPI. ROS Other: All systems not noted in ROS Statement are negative. Past Medical History Past Medical History: Atrial Fibrillation, Asthma, Cancer, Osteoarthritis (OA), Skin Disorder Additional Past Medical History / Comment(s): Recent unexplained weight loss of 15 lbs over 2 months. Chronic Psoriasis, rash on thighs and ankles. CHILDHOOD ASTHMA. Hx left breast cancer 2020, had surgery and 6 weeks of radiation. History of Any Multi-Drug Resistant Organisms: None Reported Past Surgical History: Adenoidectomy, Breast Surgery, Cardiac Valve Replacement, Heart Catheterization, Tonsillectomy Additional Past Surgical History / Comment(s): LAPROSCOPY TO EVAULATE OVARIES, left mastectomy with implant, open heart 2016 - valve replacement, HANANE, Cardioversion. Past Anesthesia/Blood Transfusion Reactions: No Reported Reaction Past Psychological History: No Psychological Hx Reported Smoking Status: Current every day smoker Past Alcohol Use History: Heavy Past Drug Use History: None Reported - Past Family History Mother Family Medical History: Cancer Additional Family Medical History / Comment(s): Lung cancer with metastasis. Father Family Medical History: Coronary Artery Disease (CAD), Hypertension, Myocardial Infarction ([place]) General Exam Limitations: no limitations Head exam: Present: atraumatic, normocephalic Eye exam: Present: normal appearance, PERRL ENT exam: Present: normal exam Neck exam: Present: normal inspection. Absent: tenderness, meningismus Respiratory exam: Present: wheezes, rhonchi, decreased breath sounds. Absent: respiratory distress Cardiovascular Exam: Present: normal rhythm, tachycardia GI/Abdominal exam: Present: soft. Absent: distended, tenderness, guarding Extremities exam: Present: normal inspection, normal capillary refill. Absent: pedal edema, calf tenderness Neurological exam: Present: alert, oriented X3, CN II-XII intact. Absent: motor sensory deficit Psychiatric exam: Present: normal affect, normal mood Skin exam: Present: warm, dry, intact, normal color. Absent: cyanosis, diaphoretic Course Vital Signs 01/25/24 01/25/24 12:57 14:45 Temperature 97.3 F L Pulse Rate 129 H 130 H Respiratory 20 18 Rate Blood Pressure 97/66 109/71 O2 Sat by Pulse 100 98 Oximetry Medical Decision Making - Medical Decision Making Was pt. sent in by a medical professional or institution (, PA, [facility], urgent care, hospital, or [facility]...) When possible be specific @ -No Did you speak to anyone other than the patient for history (EMS, parent, family, police, friend...)? What history was obtained from this source @ -No Did you review nursing and triage notes (agree or disagree)? Why? @ -I reviewed and agree with nursing and triage notes Were old charts reviewed (outside hosp., previous admission, EMS record, old EKG, old radiological studies, urgent care reports/EKG's, [facility] records)? Report findings @ -No old charts were reviewed Differential Palpitations Ventricular arrhythmias, atrial arrhythmias, myocardial infarction, anemia, thyrotoxicosis, electrolyte imbalance, hypokalemia, pulmonary embolism, pulmonary disease, drugs, alcohol, anxiety, stress.... This is not meant to be an all-inclusive list. EKG interpreted by me (3pts min.). @ -Atrial flutter with a rate of 114, QRS duration 81, QTc [address] segment elevation. X-rays interpreted by me (1pt min.). @Chest x-ray negative for acute cardiopulmonary findings, COPD no pneumothorax, no focal pneumonia CT interpreted by me (1pt min.). @ -None done U/S interpreted by me (1pt. min.). @ -None done What testing was considered but not performed or refused? (CT, X-rays, U/S, labs)? Why? @ -None What meds were considered but not given or refused? Why? @ -None Did you discuss the management of the patient with other professionals (professionals i.e. , PA, [facility], lab, RT, psych nurse, social worker delinquency prevention, toll booth operator, teacher, mobile patrol officer, correctional counselor/case manager)? Give summary @ -Dr. Marcelino has been paged Was smoking cessation discussed for >3mins.? @ -No Was critical care preformed (if so, how long)? @ -[Yes, 35 minutes Were there social determinants of health that impacted care today? How? (Homelessness, low income, unemployed, alcoholism, drug addiction, transportation, low edu. Level, literacy, decrease access to med. care, halfway, rehab)? @ -No Was there de-escalation of care discussed even if they declined (Discuss DNR or withdrawal of care, Hospice)? DNR status @ -No What co-morbidities impacted this encounter? (DM, HTN, Smoking, COPD, CAD, Cancer, CVA, ARF, Chemo, Hep., AIDS, mental health diagnosis, sleep apnea, morbid obesity)? @ -[History of asthma, COPD, atrial flutter Was patient admitted / discharged? Hospital course, mention meds given and route, prescriptions, significant lab abnormalities, going to OR and other pertinent info. @ -63-year-old female with upper respiratory symptoms, palpitation. Patient found to be in atrial flutter with RVR. Initial rate is around 1 30-1 50. She does have some episodes where the rate increases with coughing episodes into the 160s 180s. Placed on Cardizem with downtrending rate while in the emergency department. She has a mild troponin elevation 0.061. This is likely related to demand ischemia from tachycardia. This level will be trended. She has no active chest pain. She is on Eliquis and is anticoagulated at baseline. She will be admitted to her primary care provider with cardiology on consult. Undiagnosed new problem with uncertain prognosis? @ -[No Drug Therapy requiring intensive monitoring for toxicity (Heparin, Nitro, Insulin, Cardizem)? @ -No Were any procedures done? @ -No Diagnosis/symptom? @Atrial flutter with RVR, troponin elevation Acute, or Chronic, or Acute on Chronic? @Acute Uncomplicated (without systemic symptoms) or Complicated (systemic symptoms)? @ -Default Side effects of treatment? @ -No Exacerbation, Progression, or Severe Exacerbation? @ -No Poses a threat to life or bodily function? How? (Chest pain, [place], [place], pneumonia, PE, COPD, DKA, ARF, appy, cholecystitis, CVA, Diverticulitis, Homicidal, Suicidal, threat to staff... and all critical care pts) @ -Yes, arrhythmia, ACS - Lab Data Result diagrams: 01/25/24 13:07 01/25/24 13:07 Lab Results 01/25/24 01/25/24 01/25/24 Range/Units 13:07 13:07 13:07 WBC 6.1 (3.8-10.6) k/uL RBC 4.40 (3.80-5.40) m/uL Hgb 16.4 H (11.4-16.0) gm/dL Hct 50.2 H (34.0-46.0) % MCV 114.2 H (80.0-100.0) fL MCH 37.3 H (25.0-35.0) pg MCHC 32.6 (31.0-37.0) g/dL RDW 14.2 (11.5-15.5) % Plt Count 194 (150-450) k/uL MPV 8.0 Neutrophils % 67 % Lymphocytes % 21 % Monocytes % 7 % Eosinophils % 1 % Basophils % 1 % Neutrophils # 4.1 (1.3-7.7) k/uL Lymphocytes # 1.3 (1.0-4.8) k/uL Monocytes # 0.4 (0-1.0) k/uL Eosinophils # 0.1 (0-0.7) k/uL Basophils # 0.1 (0-0.2) k/uL Manual Slide Review Performed Macrocytosis Marked A PT 11.8 (10.0-12.5) sec INR 1.1 (<1.2) APTT 31.2 H (22.0-30.0) sec Sodium 132 L (137-145) mmol/L Potassium 4.1 (3.5-5.1) mmol/L Chloride 101 (98-107) mmol/L Carbon Dioxide 23 (22-30) mmol/L Anion Gap 8 mmol/L BUN 14 (7-17) mg/dL Creatinine 0.87 (0.52-1.04) mg/dL Est GFR (CKD-EPI)AfAm 83 (>60 ml/min/1.73 sqM) Est GFR (CKD-EPI)NonAf 72 (>60 ml/min/1.73 sqM) Glucose 103 H (74-99) mg/dL Calcium 9.4 (8.4-10.2) mg/dL Magnesium 1.6 (1.6-2.3) mg/dL Total Bilirubin 1.2 (0.2-1.3) mg/dL AST 159 H (14-36) U/L ALT 38 H (4-34) U/L Alkaline Phosphatase 160 H (38-126) U/L Troponin I (0.000-0.034) ng/mL Total Protein 7.3 (6.3-8.2) g/dL Albumin 4.5 (3.5-5.0) g/dL Influenza Type A (PCR) (Not Detectd) Influenza Type B (PCR) (Not Detectd) RSV (PCR) (Not Detectd) SARS-CoV-2 (PCR) (Not Detectd) 01/25/24 01/25/24 Range/Units 13:07 13:26 WBC (3.8-10.6) k/uL RBC (3.80-5.40) m/uL Hgb (11.4-16.0) gm/dL Hct (34.0-46.0) % MCV (80.0-100.0) fL MCH (25.0-35.0) pg MCHC (31.0-37.0) g/dL RDW (11.5-15.5) % Plt Count (150-450) k/uL MPV Neutrophils % % Lymphocytes % % Monocytes % % Eosinophils % % Basophils % % Neutrophils # (1.3-7.7) k/uL Lymphocytes # (1.0-4.8) k/uL Monocytes # (0-1.0) k/uL Eosinophils # (0-0.7) k/uL Basophils # (0-0.2) k/uL Manual Slide Review Macrocytosis PT (10.0-12.5) sec INR (<1.2) APTT (22.0-30.0) sec Sodium (137-145) mmol/L Potassium (3.5-5.1) mmol/L Chloride (98-107) mmol/L Carbon Dioxide (22-30) mmol/L Anion Gap mmol/L BUN (7-17) mg/dL Creatinine (0.52-1.04) mg/dL Est GFR (CKD-EPI)AfAm (>60 ml/min/1.73 sqM) Est GFR (CKD-EPI)NonAf (>60 ml/min/1.73 sqM) Glucose (74-99) mg/dL Calcium (8.4-10.2) mg/dL Magnesium (1.6-2.3) mg/dL Total Bilirubin (0.2-1.3) mg/dL AST (14-36) U/L ALT (4-34) U/L Alkaline Phosphatase (38-126) U/L Troponin I 0.061 H* (0.000-0.034) ng/mL Total Protein (6.3-8.2) g/dL Albumin (3.5-5.0) g/dL Influenza Type A (PCR) Not Detected (Not Detectd) Influenza Type B (PCR) Not Detected (Not Detectd) RSV (PCR) Not Detected (Not Detectd) SARS-CoV-2 (PCR) Not Detected (Not Detectd) Critical Care Time Critical Care Time: Yes Total Critical Care Time: 35 Disposition Clinical Impression: Atrial flutter, Troponin level elevated Disposition: ADMITTED IP TO THIS [facility] Condition: Stable Is patient prescribed a controlled substance at d/c from ED?: No Referrals: Mil Garcia Jr, [Primary Care Provider] - 1-2 days Time of Disposition: 15:02
[2024-01-25 13:46] LABS: ALT 38 U/L (4-34); AST 159 U/L (14-36); African American GFR (CKD) 83 (>60 ml/min/1.73 sqM); Albumin 4.5 g/dL (3.5-5.0); Alkaline Phosphatase 160 U/L (38-126); Anion Gap 8 mmol/L; Blood Urea Nitrogen 14 mg/dL (7-17); Calcium 9.4 mg/dL (8.4-10.2); Carbon Dioxide 23 mmol/L (22-30); Chloride 101 mmol/L (98-107); Glucose 103 mg/dL (74-99); Magnesium 1.6 mg/dL (1.6-2.3); Non-African American GFR(CKD) 72 (>60 ml/min/1.73 sqM); Potassium 4.1 mmol/L (3.5-5.1); Sodium 132 mmol/L (137-145); Total Bilirubin 1.2 mg/dL (0.2-1.3); Total Protein 7.3 g/dL (6.3-8.2)
[2024-01-25 13:48] LABS: Basophils # (A) 0.1 k/uL (0-0.2); Basophils % (A) 1 %; Eosinophils # (A) 0.1 k/uL (0-0.7); Eosinophils % (A) 1 %; HCT 50.2 % (34.0-46.0); HGB 16.4 gm/dL (11.4-16.0); Lymphocytes # (A) 1.3 k/uL (1.0-4.8); Lymphocytes % (A) 21 %; MCH 37.3 pg (25.0-35.0); MCHC 32.6 g/dL (31.0-37.0); MCV 114.2 fL (80.0-100.0); Macrocytosis Marked; Monocytes # (A) 0.4 k/uL (0-1.0); Monocytes % (A) 7 %; Neutrophils # (A) 4.1 k/uL (1.3-7.7); Neutrophils % (A) 67 %; Platelet Count 194 k/uL (150-450); RDW 14.2 % (11.5-15.5); WBC 6.1 k/uL (3.8-10.6)
--- NOTE | 2024-01-25 13:49 | XR ---
EXAMINATION TYPE: XR chest 2V DATE OF EXAM: 01/25/2024 COMPARISON: 06/07/2015 CLINICAL INDICATION: Female, 63 years old with history of dysrhythmia; , TECHNIQUE: XR chest 2V views of the chest. FINDINGS: The lungs are clear and there is no pneumothorax, pleural effusion, or focal pneumonia. Heart size normal and no overt failure. Osseous structures demonstrate hypertrophic and degenerative changes of the spine. Poststernotomy changes and previous cardiac valve replacement surgery. Diffuse emphysemato us changes. Generalized osteopenia. IMPRESSION: 1. No acute process. [facility] Maye Cha, , 01/25/2024 1:47 PM
[2024-01-25 13:57] LABS: INR 1.1 (<1.2); Partial Thromboplastin Time 31.2 sec (22.0-30.0); Prothrombin Time 11.8 sec (10.0-12.5)
[2024-01-25] MEDS ORDERED: ACETAMINOPHEN TAB 325 MG TAB PO PRN (14:24)
[2024-01-25] MEDS ORDERED: NALOXONE 0.4 MG/ML 1 ML VIAL IV PRN (14:24)
[2024-01-25] MEDS: SODIUM CHLORIDE 0.9% 500 ML 500 ML IV ONE (14:39)
[2024-01-25] MEDS: SODIUM CHLORIDE 0.9% 1,000 ML IV SCH (14:39)
[2024-01-25] MEDS: DILTIAZEM DRIP BOLUS FROM BAG 1 MG SOLN IV ONE (14:43)
[2024-01-25] MEDS: DILTIAZEM 125 MG in SODIUM CHLORIDE 0.9% 100 ML IV SCH (14:44)
[2024-01-25] MEDS: FOLIC ACID-VIT B COMPLEX-VIT C 1 CAP PO SCH (15:39)
[2024-01-25] MEDS: APIXABAN 5 MG TAB PO SCH ×2 (15:39→20:30)
[2024-01-25] MEDS: ATORVASTATIN 20 MG TAB PO SCH (15:45)
[2024-01-26 06:16] LABS: Basophils % (A) 1 %; Eosinophils # (A) 0.2 k/uL (0-0.7); Eosinophils % (A) 3 %; HCT 42.4 % (34.0-46.0); HGB 13.6 gm/dL (11.4-16.0); Lymphocytes # (A) 1.9 k/uL (1.0-4.8); Lymphocytes % (A) 27 %; MCH 36.7 pg (25.0-35.0); MCHC 32.1 g/dL (31.0-37.0); Macrocytosis Marked; Mean Platelet Volume 7.9; Monocytes # (A) 0.5 k/uL (0-1.0); Monocytes % (A) 8 %; Neutrophils # (A) 4.1 k/uL (1.3-7.7); Neutrophils % (A) 59 %; Platelet Count 166 k/uL (150-450); RBC 3.71 m/uL (3.80-5.40); RDW 14.3 % (11.5-15.5); WBC 6.9 k/uL (3.8-10.6)
[2024-01-26 06:24] LABS: MCV 114.2 fL (80.0-100.0)
[2024-01-26 06:42] LABS: African American GFR (CKD) >90 (>60 ml/min/1.73 sqM); Anion Gap 2 mmol/L; Blood Urea Nitrogen 12 mg/dL (7-17); Calcium 8.8 mg/dL (8.4-10.2); Carbon Dioxide 24 mmol/L (22-30); Chloride 108 mmol/L (98-107); Glucose 92 mg/dL (74-99); Non-African American GFR(CKD) 88 (>60 ml/min/1.73 sqM); Potassium 3.5 mmol/L (3.5-5.1); Sodium 134 mmol/L (137-145)
[2024-01-26] MEDS: LETROZOLE 2.5 MG TAB PO SCH (08:50)
[2024-01-26] MEDS ORDERED: fentaNYL (PF) 50 MCG/ML 5 ML AMP IVP PRN (09:41)
[2024-01-26] MEDS ORDERED: MIDAZOLAM 2 MG/2 ML VIAL IV PRN (09:41)
[2024-01-26] MEDS ORDERED: BENZOCAINE SPRAY 1 CAN TOPICAL PRN (09:41)
[2024-01-26] MEDS: DEXTROSE 5% IN WATER 100 ML with AMIODARONE 150 MG IV ONE (10:02)
[2024-01-26] MEDS: AMIODARONE 360 MG in DEXTROSE 5% IN WATER 200 ML IV ONE (10:23)
--- NOTE | 2024-01-26 10:44 | P.CRDCN ---
History of Present Illness History of present illness: HISTORY OF PRESENT ILLNESS: This is a 63-year-old female with a past medical history significant for aortic stenosis status post aortic valve replacement, septal hypertrophy status post m yomyectomy, and atrial flutter. Patient follows in the office with Dr. Apple. We have been asked to see the patient in consultation for a flutter with RVR. Patient examined at the bedside. Patient presented to the hospital with a chief complaint of palpitations. She reports having palpitations for the past 4 days. Patient was found to be in atrial flutter with RVR. She was started on IV Cardizem. The patient currently denies chest pain or pressure. She denies shortness of breath. Patient remains in atrial flutter with a heart rate in the 130s. She remains on IV Cardizem. DIAGNOSTICS: - EKG reveals atrial flutter with RVR - Chest xray negative for acute process - Laboratory data: WBC 6.9. Hemoglobin 13.6. Platelet count 166. Sodium 134. Potassium 3.5. BUN 12. Creatinine 0.74. Troponin 0.061. 0.051. 0.049. - Current home cardiac medications include Eliquis 5 mg daily, Lipitor 20 mg daily, metoprolol tartrate 25 mg daily - Patient underwent HANANE in April 2023 revealing normally functioning bioprosthetic valve in aortic position, severe left atrial enlargement, no intracardiac thrombus. Patient also underwent cardioversion at this time. - Most recent echocardiogram obtained in October 2021 revealed ejection fraction 55 to 60%, biological AV prosthesis, moderate TR - Cardiac catheterization history: 2016 revealing normal coronary arteries REVIEW OF SYSTEMS: At the time of my exam: CONSTITUTIONAL: Denies fever or chills. HEENT: Denies blurred vision, vision changes, or eye pain. Denies hemoptysis CARDIOVASCULAR: Denies chest pain. Denies orthopnea. Denies PND. Reports palpitations RESPIRATORY: Denies shortness of breath. GASTROINTESTINAL: Denies abdominal pain. Denies nausea or vomiting. HEMATOLOGIC: Denies bleeding disorders. GENITOURINARY: Denies any blood in urine. SKIN: Denies pruitis. Denies rash. PHYSICAL EXAM: VITAL SIGNS: Reviewed. GENERAL: Well-developed in no acute distress. HEENT: Head is normocephalic. Pupils are equal, round. Sclerae anicteric. Mucous membranes of the mouth are moist. Neck supple. No JVD or thyromegaly LUNGS: Respirations even and unlabored. Lungs essentially clear to auscultation bilaterally. HEART: Tachycardic. Irregular rate and rhythm. S1 and S2 heard. ABDOMEN: Soft. Nondistended. Nontender. EXTREMITIES: Normal range of motion. No clubbing or cyanosis. Peripheral pulses intact. No lower extremity edema NEUROLOGIC: Awake and alert. Oriented x 3. ASSESSMENT: Paroxysmal typical atrial flutter with RVR Elevated troponins, type II [place] secondary to oxygen supply/demand mismatch secondary to A-fib with RVR if Aortic stenosis status post bioprosthetic aortic valve replacement, 2015 Septal hypertrophy status post myomyectomy, 2016 History of HANANE/CV, 04/2023 Normal coronary arteries, per cardiac catheterization 2015 Hyperlipidemia PLAN: Continue IV Cardizem Add IV amiodarone bolus and drip per protocol Resume metoprolol. Increase dosage to twice daily Continue anticoagulation with Eliquis twice a day N.p.o. Patient to undego HANANE/Cardioversion today with Dr. Apple Further recommendations pending patient course Nurse practitioner note has been reviewed by physician. Signing provider agrees with the documented findings, assessment, and plan of care documented by [facility] [employer] as a scribe. Past Medical History Past Medical History: Atrial Fibrillation, Asthma, Cancer, Osteoarthritis (OA), Skin Disorder Additional Past Medical History / Comment(s): Recent unexplained weight loss of 15 lbs over 2 months. Chronic Psoriasis, rash on thighs and ankles. CHILDHOOD ASTHMA. Hx left breast cancer 2020, had surgery and 6 weeks of radiation. History of Any Multi-Drug Resistant Organisms: None Reported Past Surgical History: Adenoidectomy, Breast Surgery, Cardiac Valve Replacement, Heart Catheterization, Tonsillectomy Additional Past Surgical History / Comment(s): LAPROSCOPY TO EVAULATE OVARIES, left mastectomy with implant, open heart 2015 - Aortic valve replacement Bovine, HANANE, Cardioversion. Past Anesthesia/Blood Transfusion Reactions: No Reported Reaction Smoking Status: Current every day smoker - Past Family History Mother Family Medical History: Cancer Additional Family Medical History / Comment(s): Lung cancer with metastasis. Father Family Medical History: Coronary Artery Disease (CAD), Hypertension, Myocardial Infarction ([place]) Medications and Allergies Home Medications Medication Instructions Recorded Confirmed Type Apixaban [Eliquis] 5 mg PO DAILY 05/07/23 01/25/24 History Letrozole 2.5 mg PO DAILY 05/07/23 01/25/24 History Atorvastatin [Lipitor] 20 mg PO DAILY 12/06/23 01/25/24 History Calcium Carbonate 500 mg PO DAILY 12/06/23 01/25/24 History Metoprolol Tartrate [Lopressor] 25 mg PO DAILY 12/06/23 01/25/24 History Allergies Allergy/AdvReac Type Severity Reaction Status Date / Time No Known Allergies Allergy Verified 01/25/24 15:09 Physical Exam Vitals: Vital Signs Temp Pulse Pulse Resp BP BP Pulse Ox 01/26/24 04:00 114 H 16 119/76 97 01/26/24 00:54 130 H 01/26/24 00:15 100 111/80 01/25/24 23:48 98.3 F 130 H 18 113/40 98 01/25/24 22:00 100 119/91 95 01/25/24 21:00 98 107/71 95 01/25/24 20:26 128 H 20 108/83 95 01/25/24 20:00 106 H 118/85 01/25/24 19:00 96 115/75 96 01/25/24 18:00 126 H 92/69 92 L 01/25/24 17:00 89 97/72 94 L 01/25/24 16:57 96 18 95/72 95 01/25/24 16:00 75 121/32 96 01/25/24 15:43 68 18 103/78 94 L 01/25/24 15:19 89 18 95 01/25/24 15:05 95 18 115/57 95 01/25/24 15:00 80 99/76 96 01/25/24 14:45 130 H 18 109/71 98 01/25/24 14:29 131 H 97 01/25/24 12:57 97.3 F L 129 H 20 97/66 100 Intake and Output 01/25/24 01/26/24 01/26/24 22:59 06:59 14:59 Intake Total 240 Balance 240 Intake: Oral 240 Other: # Voids 1 Weight 51.4 kg Results 01/26/24 06:05 01/26/24 06:05 Cardiac Enzymes 01/25/24 01/25/24 01/25/24 Range/Units 13:07 13:07 15:54 AST 159 H (14-36) U/L Troponin I 0.061 H* 0.051 H* (0.000-0.034) ng/mL 01/25/24 Range/Units 18:49 AST (14-36) U/L Troponin I 0.049 H* (0.000-0.034) ng/mL Coagulation 01/25/24 Range/Units 13:07 PT 11.8 (10.0-12.5) sec APTT 31.2 H (22.0-30.0) sec CBC 01/25/24 01/26/24 Range/Units 13:07 06:05 WBC 6.1 6.9 (3.8-10.6) k/uL RBC 4.40 3.71 L (3.80-5.40) m/uL Hgb 16.4 H 13.6 (11.4-16.0) gm/dL Hct 50.2 H 42.4 (34.0-46.0) % Plt Count 194 166 (150-450) k/uL Comprehensive Metabolic Panel 01/25/24 01/26/24 Range/Units 13:07 06:05 Sodium 132 L 134 L (137-145) mmol/L Potassium 4.1 3.5 (3.5-5.1) mmol/L Chloride 101 108 H (98-107) mmol/L Carbon Dioxide 23 24 (22-30) mmol/L BUN 14 12 (7-17) mg/dL Creatinine 0.87 0.74 (0.52-1.04) mg/dL Glucose 103 H 92 (74-99) mg/dL Calcium 9.4 8.8 (8.4-10.2) mg/dL AST 159 H (14-36) U/L ALT 38 H (4-34) U/L Alkaline Phosphatase 160 H (38-126) U/L Total Protein 7.3 (6.3-8.2) g/dL Albumin 4.5 (3.5-5.0) g/dL Current Medications Generic Name Dose Route Start Last Admin Trade Name Freq PRN Reason Stop Dose Admin Acetaminophen 650 mg 01/25/24 14:24 Acetaminophen Tab 325 Mg Tab PO Q6HR PRN Mild Pain or Fever > 100.5 Apixaban 5 mg 01/25/24 21:00 01/25/24 20:30 Apixaban 5 Mg Tab PO 5 mg BID HARJIT Administration Protocol Atorvastatin Calcium 20 mg 01/25/24 15:45 01/25/24 15:45 Atorvastatin 20 Mg Tab PO 20 mg DAILY HARJIT Administration Diltiazem HCl 125 mg/ Sodium 125 mls @ 5 mls/hr 01/25/24 14:15 01/25/24 14:44 Chloride IV 5 mg/hr .Q24H HARJIT 5 mls/hr Administration 5 MG/HR Sodium Chloride 1,000 mls @ 75 mls/hr 01/25/24 14:30 01/26/24 05:43 Saline 0.9% IV Not Given .[id number] [facility] Letrozole 2.5 mg 01/26/24 09:00 Letrozole 2.5 Mg Tab PO DAILY [facility] Multivit/Ca Carb/B Cmplx/FA/Prenat 1 each 01/25/24 15:45 01/25/24 15:40 Folic Acid-Vit B Complex-Vit C 1 Cap PO Not Given DAILY [facility] Naloxone HCl 0.2 mg 01/25/24 14:24 Naloxone 0.4 Mg/Ml 1 Ml Vial IV Q2M PRN Opioid Reversal Intake and Output 01/25/24 01/26/24 01/26/24 22:59 06:59 14:59 Intake Total 240 Balance 240 Intake: Oral 240 Other: # Voids 1 Weight 51.4 kg 01/26/24 06:05 01/26/24 06:05
[2024-01-26] MEDS: METOPROLOL TARTRATE 25 MG TAB PO SCH (10:47)
[2024-01-26 11:06] VITALS: BMI 19.4
[2024-01-26] MEDS ORDERED: LIDOCAINE 1% INJ 10MG/ML (20 ML MDV) ONE (12:02)
[2024-01-26] MEDS ORDERED: PHENYLEPHRINE-0.9% NACL SYG 1,000 MCG/10 ML SYRINGE ONE (12:02)
[2024-01-26] MEDS ORDERED: PROPOFOL 10 MG/ML 20 ML VIAL IV ONE (12:02)
[2024-01-26] MEDS: IV FLUID CONTINUATION 1,000 ML IV ONE (12:04)
[2024-01-26] MEDS: BENZOCAINE SPRAY 1 EACH MM ONE (12:07)
--- NOTE | 2024-01-26 13:19 | P.HPIM ---
History of Present Illness H&P Date: 01/26/24 Chief Complaint: Notations This patient is well-known to the practice. She describes a several day history of being ill. She also began experiencing racing heart. She has a history of atrial fibrillation and was cardioverted about 10 months ago. She presented the emergency room with this and was found to have an elevated troponin. She was also found to be in A-fib with RVR. Currently she is resting on the floor on Cardizem drip, her heart rates improved. She feels better. Cardiology is already seen her and planning on a cardioversion. She is anticoagulated on E liquis. She has a fairly extensive cardiac history and also has a history of breast cancer this mastectomy. She has a history of valve replacement surgery as well. Review of Systems All systems: negative Past Medical History Past Medical History: Atrial Fibrillation, Asthma, Cancer, Osteoarthritis (OA), Skin Disorder Additional Past Medical History / Comment(s): Recent unexplained weight loss of 15 lbs over 2 months. Chronic Psoriasis, rash on thighs and ankles. CHILDHOOD ASTHMA. Hx left breast cancer 2020, had surgery and 6 weeks of radiation. History of Any Multi-Drug Resistant Organisms: None Reported Past Surgical History: Adenoidectomy, Breast Surgery, Cardiac Valve Replacement, Heart Catheterization, Tonsillectomy Additional Past Surgical History / Comment(s): LAPROSCOPY TO EVAULATE OVARIES, left mastectomy with implant, open heart 2015 - Aortic valve replacement Bovine, HANANE, Cardioversion. Past Anesthesia/Blood Transfusion Reactions: No Reported Reaction Smoking Status: Current every day smoker - Past Family History Mother Family Medical History: Cancer Additional Family Medical History / Comment(s): Lung cancer with metastasis. Father Family Medical History: Coronary Artery Disease (CAD), Hypertension, Myocardial Infarction ([place]) Medications and Allergies Home Medications Medication Instructions Recorded Confirmed Type Apixaban [Eliquis] 5 mg PO DAILY 05/07/23 01/25/24 History Letrozole 2.5 mg PO DAILY 05/07/23 01/25/24 History Atorvastatin [Lipitor] 20 mg PO DAILY 12/06/23 01/25/24 History Calcium Carbonate 500 mg PO DAILY 12/06/23 01/25/24 History Metoprolol Tartrate [Lopressor] 25 mg PO DAILY 12/06/23 01/25/24 History Allergies Allergy/AdvReac Type Severity Reaction Status Date / Time No Known Allergies Allergy Verified 01/25/24 15:09 Physical Exam Vitals: Vital Signs Temp Pulse Pulse Resp BP BP Pulse Ox 01/26/24 12:54 61 16 105/58 98 01/26/24 12:39 62 18 95/50 99 01/26/24 12:23 56 L 16 90/50 98 01/26/24 12:07 75 20 110/63 100 01/26/24 11:00 97.9 F 97 20 122/74 95 01/26/24 10:45 96 120/72 01/26/24 10:30 94 120/66 01/26/24 10:25 98.1 F 108 H 20 120/72 01/26/24 10:20 108 H 120/72 01/26/24 10:11 137 H 125/81 01/26/24 08:45 98.1 F 102 H 20 115/69 95 01/26/24 04:00 114 H 16 119/76 97 01/26/24 00:54 130 H 01/26/24 00:15 100 111/80 01/25/24 23:48 98.3 F 130 H 18 113/40 98 01/25/24 22:00 100 119/91 95 01/25/24 21:00 98 107/71 95 01/25/24 20:26 128 H 20 108/83 95 01/25/24 20:00 106 H 118/85 01/25/24 19:00 96 115/75 96 01/25/24 18:00 126 H 92/69 92 L 01/25/24 17:00 89 97/72 94 L 01/25/24 16:57 96 18 95/72 95 01/25/24 16:00 75 121/32 96 01/25/24 15:43 68 18 103/78 94 L 01/25/24 15:19 89 18 95 01/25/24 15:05 95 18 115/57 95 01/25/24 15:00 80 99/76 96 01/25/24 14:45 130 H 18 109/71 98 01/25/24 14:29 131 H 97 Intake and Output 01/25/24 01/26/24 01/26/24 22:59 06:59 14:59 Intake Total 240 450 Balance 240 450 Intake: IV 450 Oral 240 Other: # Voids 1 Weight 51.4 kg 51.4 kg GENERAL: Elderly female in no acute distress. HEAD: Atraumatic, normocephalic. EYES: Pupils equal round and reactive to light, extraocular movements intact, sclera anicteric, conjunctiva are normal. ENT:nares patent, oropharynx clear without exudates. Moist mucous membranes. NECK: Normal range of motion, supple without lymphadenopathy or JVD, no thyromegaly LUNGS: Breath sounds coarse to auscultation bilaterally and equal. No wheezes rales or rhonchi. HEART: Regular rate and rhythm at this time. With occasional ectopy, 1/6 systolic murmur at the right sternal border, no, rubs or gallops.S1S2 Normal ABDOMEN: Soft, nontender, normoactive bowel sounds. No guarding, no rebound. No masses appreciated. EXTREMITIES: Normal range of motion, no pitting or edema. No clubbing or cyanosis. NEUROLOGICAL: Cranial nerves II through XII grossly intact. Normal speech, normal gait. PSYCH: Normal mood, normal affect. SKIN: Warm, Dry, normal turgor, no rashes or lesions noted. Results CBC & Chem 7: 01/26/24 06:05 01/26/24 06:05 Labs: Abnormal Lab Results - Last 24 Hours (Table) 01/25/24 01/25/24 01/25/24 Range/Units 13:07 13:07 13:07 RBC (3.80-5.40) m/uL Hgb 16.4 H (11.4-16.0) gm/dL Hct 50.2 H (34.0-46.0) % MCV 114.2 H (80.0-100.0) fL MCH 37.3 H (25.0-35.0) pg Macrocytosis Marked A APTT 31.2 H (22.0-30.0) sec Sodium 132 L (137-145) mmol/L Chloride (98-107) mmol/L Glucose 103 H (74-99) mg/dL AST 159 H (14-36) U/L ALT 38 H (4-34) U/L Alkaline Phosphatase 160 H (38-126) U/L Troponin I (0.000-0.034) ng/mL 11/26/24 11/26/24 11/26/24 Range/Units 13:07 15:54 18:49 RBC (3.80-5.40) m/uL Hgb (11.4-16.0) gm/dL Hct (34.0-46.0) % MCV (80.0-100.0) fL MCH (25.0-35.0) pg Macrocytosis APTT (22.0-30.0) sec Sodium (137-145) mmol/L Chloride (98-107) mmol/L Glucose (74-99) mg/dL AST (14-36) U/L ALT (4-34) U/L Alkaline Phosphatase (38-126) U/L Troponin I 0.061 H* 0.051 H* 0.049 H* (0.000-0.034) ng/mL 01/26/24 01/26/24 Range/Units 06:05 06:05 RBC 3.71 L (3.80-5.40) m/uL Hgb (11.4-16.0) gm/dL Hct (34.0-46.0) % MCV 114.2 H (80.0-100.0) fL MCH 36.7 H (25.0-35.0) pg Macrocytosis Marked A APTT (22.0-30.0) sec Sodium 134 L (137-145) mmol/L Chloride 108 H (98-107) mmol/L Glucose (74-99) mg/dL AST (14-36) U/L ALT (4-34) U/L Alkaline Phosphatase (38-126) U/L Troponin I (0.000-0.034) ng/mL Chest x-ray: report reviewed Thrombosis Risk Factor Assmnt - DVT/VTE Prophylaxis DVT/VTE Prophylaxis: Pharmacologic Prophylaxis ordered (Continue her home anticoagulation) - Choose All That Apply Any of the Below Risk Factors Present?: No Other Risk Factors: No Each Risk Factor Represents 2 Points: Age 61-74 years Thrombosis Risk Factor Assessment Total Risk Factor Score: 2 Thrombosis Risk Factor Assessment Level: Very Low Risk Assessment and Plan (1) H/O malignant neoplasm of breast Current Visit: Yes Status: Acute Code(s): Z85.3 - PERSONAL HISTORY OF MALIGNANT NEOPLASM OF BREAST SNOMED Code(s): 237467255 (2) Type 2 AMI (acute myocardial infarction) Current Visit: Yes Status: Acute Code(s): I21.A1 - MYOCARDIAL INFARCTION TYPE 2 SNOMED Code(s): 47016648 (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 Current Visit: Yes Status: Acute Code(s): Z79.01 - [employer] (CURRENT) USE OF ANTICOAGULANTS SNOMED Code(s): 201830641 (4) Acute bronchitis Current Visit: Yes Status: Acute Code(s): J20.9 - ACUTE BRONCHITIS, UNSPECIFIED SNOMED Code(s): 95002866 (5) Atrial flutter Current Visit: Yes Status: Acute Code(s): I48.92 - UNSPECIFIED ATRIAL FLUTTER SNOMED Code(s): 8880881 (6) Troponin level elevated Current Visit: Yes Status: Acute Code(s): R79.89 - OTHER SPECIFIED ABNORMAL FINDINGS OF BLOOD CHEMISTRY SNOMED Code(s): 886586727 (7) S/P AVR Current Visit: No Status: Acute Code(s): Z95.2 - PRESENCE OF PROSTHETIC HEART VALVE SNOMED Code(s): 3691230064114 Plan: Will restart her home medications, cardiology is planning a conversion already today. Will start her on amoxicillin/clavulanate casted foot for her acute bronchitis. She has a history of asthma. Will also start her on guaifenesin, repeat labs in a.m., reevaluate her in the next 24 hours.
[2024-01-26] MEDS: AMOXIC-POT CLAV 875-125MG 1 EACH TAB PO SCH (13:28)
[2024-01-26] MEDS: guaiFENesin 600 MG TABLET.ER PO SCH (13:28)
[2024-01-26] MEDS: AMIODARONE 200 MG TAB PO SCH (13:28)
[2024-01-26] MEDS ORDERED: AMIODARONE 450 MG in DEXTROSE 5% IN WATER 250 ML IV SCH (15:30)
--- NOTE | 2024-01-26 22:17 | ECHOT ---
TRANSESOPHAGEAL ECHOCARDIOGRAM INDICATION: To rule out intracardiac thrombus prior to cardioversion. PROCEDURE NOTE: After obtaining informed consent, transesophageal echocardiogram was performed in left lateral position using an Omniplane probe. Local and IV sedation were obtained by the survey interviewer. The patient tolerated the procedure well without any obvious immediate complications. FINDINGS: 1. There is no intracardiac thrombus within the left atrial appendage, left atrium, right atrium, right ventricle. 2. Left ventricle has normal size and systolic function. 3. Mitral valve appears anatomically normal. There is mild to moderate central mitral regurgitation noted. 4. Left atrium appears enlarged. 5. Tricuspid valve shows moderate tricuspid regurgitation. 6. Interatrial septum, there is no evidence of jjhf-rf-kosur shunt by color-flow Doppler or iiojl-bw-qiei shunt by agitated saline contrast study. 7. There is a mechanical valve in aortic position with some restriction in leaflet mobility and mild to moderate valvular regurgitation with mild perivalvular regurgitation. Ascending aorta appears aneurysmally dilated. There is no evidence of klorz-pp-tfcr shunt by agitated saline contrast study or ydfg-pl-uqmho shunt by color-flow Doppler. CONCLUSIONS: No intracardiac thrombus. PLAN: The patient will undergo cardioversion. MMODL / IJN: [id number] /
[2024-01-27 08:01] VITALS: RESP 16
[2024-01-27 09:24] LABS: Basophils % (A) 1 %; Eosinophils # (A) 0.2 k/uL (0-0.7); Eosinophils % (A) 3 %; HGB 13.3 gm/dL (11.4-16.0); Lymphocytes # (A) 1.3 k/uL (1.0-4.8); Lymphocytes % (A) 20 %; MCH 38.2 pg (25.0-35.0); MCHC 33.4 g/dL (31.0-37.0); MCV 114.6 fL (80.0-100.0); Macrocytosis Marked; Mean Platelet Volume 8.5; Monocytes # (A) 0.5 k/uL (0-1.0); Monocytes % (A) 7 %; Neutrophils # (A) 4.5 k/uL (1.3-7.7); Neutrophils % (A) 68 %; Platelet Count 144 k/uL (150-450); RBC 3.49 m/uL (3.80-5.40); RDW 14.9 % (11.5-15.5); WBC 6.6 k/uL (3.8-10.6)
[2024-01-27 09:37] LABS: African American GFR (CKD) >90 (>60 ml/min/1.73 sqM); Anion Gap 5 mmol/L; Blood Urea Nitrogen 9 mg/dL (7-17); Carbon Dioxide 26 mmol/L (22-30); Chloride 107 mmol/L (98-107); Glucose 99 mg/dL (74-99); Non-African American GFR(CKD) >90 (>60 ml/min/1.73 sqM); Potassium 3.9 mmol/L (3.5-5.1); Sodium 138 mmol/L (137-145)
--- NOTE | 2024-01-27 10:34 | P.DS ---
Providers Date of admission: 01/25/24 14:24 Expected date of discharge: 01/27/24 Attending physician: Mil Garcia Consults: 01/25/24 14:24 Consult Physician Routine Consulting Provider: Anali Rosado Consult Reason/Comments: A-fluuter with RVR Do you want consulting provider notified?: Yes Primary care physician: Mil Garcia Assessment: Successful cardioversion Patient Condition at Discharge: Stable Plan - Discharge Summary Discharge Rx Participant: No New Discharge Prescriptions: No Action Letrozole 2.5 mg PO DAILY Calcium Carbonate 500 mg PO DAILY Metoprolol Tartrate [Lopressor] 25 mg PO DAILY Apixaban [Eliquis] 5 mg PO DAILY Atorvastatin [Lipitor] 20 mg PO DAILY Discharge Medication List Apixaban [Eliquis] 5 mg PO BID 05/07/23 [History] Letrozole 2.5 mg PO DAILY 05/07/23 [History] Atorvastatin [Lipitor] 20 mg PO DAILY 12/06/23 [History] Calcium Carbonate 500 mg PO DAILY 12/06/23 [History] Metoprolol Tartrate [Lopressor] 25 mg PO DAILY 12/06/23 [History] Follow up Appointment(s)/Referral(s): Mil Garcia Jr, [Primary Care Provider] - 1-2 days
[2024-01-27 11:45] VITALS: BP 133/77; PULSE 60; TEMP 98
--- NOTE | 2024-01-27 13:00 | P.PN ---
Subjective HISTORY OF PRESENT ILLNESS: This is a 63-year-old female with a past medical history significant for aortic stenosis status post aortic valve replacement, septal hypertrophy status post myomyectomy, and atrial flutter. Patient follows in the office with Dr. Apple. We have been asked to see the patient in consultation for a flutter with RVR. Nahid pizarro examined at the bedside. Patient presented to the hospital with a chief complaint of palpitations. She reports having palpitations for the past 4 days. Patient was found to be in atrial flutter with RVR. She was started on IV Cardizem. The patient currently denies chest pain or pressure. She denies shortness of breath. Patient remains in atrial flutter with a heart rate in the 130s. She remains on IV Cardizem. DIAGNOSTICS: - EKG reveals atrial flutter with RVR - Chest xray negative for acute process - Laboratory data: WBC 6.9. Hemoglobin 13.6. Platelet count 166. Sodium 134. Potassium 3.5. BUN 12. Creatinine 0.74. Troponin 0.061. 0.051. 0.049. - Current home cardiac medications include Eliquis 5 mg daily, Lipitor 20 mg daily, metoprolol tartrate 25 mg daily - Patient underwent HANANE in April 2023 revealing normally functioning bioprosthetic valve in aortic position, severe left atrial enlargement, no intracardiac thrombus. Patient also underwent cardioversion at this time. - Most recent echocardiogram obtained in October 2021 revealed ejection fraction 55 to 60%, biological AV prosthesis, moderate TR - Cardiac catheterization history: 2016 revealing normal coronary arteries 01/27/2024 Patient examined this morning at the bedside. She is status post HANANE and cardioversion yesterday with Dr. Apple. She is maintaining sinus mechanism this morning. She denies chest pain or pressure. She denies shortness of breath. Vital signs are stable. PHYSICAL EXAM: VITAL SIGNS: Reviewed. GENERAL: Well-developed in no acute distress. HEENT: Head is normocephalic. Pupils are equal, round. Sclerae anicteric. Mucous membranes of the mouth are moist. Neck supple. No JVD or thyromegaly LUNGS: Respirations even and unlabored. Lungs essentially clear to auscultation bilaterally. HEART: Regular rate and rhythm. S1 and S2 heard. ABDOMEN: Soft. Nondistended. Nontender. EXTREMITIES: Normal range of motion. No clubbing or cyanosis. Peripheral pulses intact. No lower extremity edema NEUROLOGIC: Awake and alert. Oriented x 3. ASSESSMENT: Paroxysmal typical atrial flutter with RVR, status post HANANE and cardioversion maintaining sinus mechanism Elevated troponins, type II FL secondary to oxygen supply/demand mismatch secondary to A-fib with RVR if Aortic stenosis status post bioprosthetic aortic valve replacement, 2015 Septal hypertrophy status post myomyectomy, 2015 History of HANANE/CV, 04/2023 Normal coronary arteries, per cardiac catheterization 2015 Hyperlipidemia PLAN: Continue Eliquis 5 mg twice a day Continue metoprolol tartrate 25 mg twice a day Amiodarone taper at discharge 200 mg twice a day for 1 week then 200 mg daily Patient is stable for discharge home today from a cardiac standpoint She is to follow-up postdischarge with Dr. Apple Nurse practitioner note has been reviewed by physician. Signing provider agrees with the documented findings, assessment, and plan of care documented by CNC MILLING MACHINIST as a scribe. Objective - Vital Signs Vital signs: Vital Signs Temp 98.0 F 01/27/24 11:44 Pulse 60 01/27/24 11:44 Resp 16 01/27/24 11:44 BP 133/77 01/27/24 11:44 Pulse Ox 95 01/27/24 11:44 FiO2 Intake & Output 01/26/24 01/27/24 01/27/24 18:59 06:59 18:59 Intake Total 249.9 249.9 10 Balance 249.9 249.9 10 Weight 51.4 kg 51.2 kg Intake: IV 0 10 Invasive Line 1 10 Intake, IV Titration 249.9 249.9 Amount Amiodarone 360 mg In 99.9 99.9 Dextrose 5% in Water 200 ml @ 1 MG/MIN 33.333 mls/ hr IV .Q6H ONE Rx#: [id number] Diltiazem 125 mg In 30 30 Sodium Chloride 0.9% 100 ml @ 5 MG/HR 5 mls/hr IV .Q24H HARJIT Rx#:[id number] Sodium Chloride 0.9% 1, 120 120 000 ml @ 75 mls/hr IV . [id number] HARJIT Rx#:[id number] Other: # Voids 0 1 # Bowel Movements 0 - Labs CBC & Chem 7: 01/27/24 08:44 01/27/24 08:44 Labs: Abnormal Lab Results - Last 24 Hours (Table) 01/27/24 Range/Units 08:44 RBC 3.49 L (3.80-5.40) m/uL MCV 114.6 H (80.0-100.0) fL MCH 38.2 H (25.0-35.0) pg Plt Count 144 L (150-450) k/uL Macrocytosis Marked A
--- NOTE | 2024-01-31 08:34 | PCN ---
PROCEDURE NOTE CARDIOVERSION NOTE: INDICATION: Typical atrial flutter. PROCEDURE NOTE: After obtaining informed consent, the patient underwent cardioversion with synchronized DC current using 120 joules. The patient converted to sinus rhythm following a single shock. She is anticoagulated with Eliquis and had been on amiodarone prior to cardioversion. MMODL / IJN: [id number] /
== END 2024-01-27 13:30 | disposition home or self-care (01) | DRG 201 ==
LOC: EC 12:52 → OBSVTOIN 14:24 → 3SCARD 14:24 → UNDODISOB 01-27 13:30
PROVIDERS: ADMIT Family Medicine; ATTEND Family Medicine
PROC: 5A2204Z Restoration of Cardiac Rhythm, Single (ICD-10-PCS; principal; 2024-01-26 07:30)
PROC: B24BZZ4 Ultrasonography of Heart with Aorta, Transesophageal (ICD-10-PCS; principal; 2024-01-26 07:30)
DX: I48.3 Typical atrial flutter (principal); I21.A1 Myocardial infarction type 2; I35.0 Nonrheumatic aortic (valve) stenosis; J20.9 Acute bronchitis, unspecified; I42.2 Other hypertrophic cardiomyopathy; I48.91 Unspecified atrial fibrillation; E78.5 Hyperlipidemia, unspecified; L40.8 Other psoriasis; F17.200 Nicotine dependence, unspecified, uncomplicated; I07.1 Rheumatic tricuspid insufficiency; Z85.3 Personal history of malignant neoplasm of breast; Z95.3 Presence of xenogenic heart valve; Z79.01 Long term (current) use of anticoagulants; Z79.811 Long term (current) use of aromatase inhibitors; Z79.82 Long term (current) use of aspirin; Z79.899 Other long term (current) drug therapy; Z28.310 Unvaccinated for COVID-19; Z28.21 Immunization not carried out because of patient refusal; Z92.3 Personal history of irradiation; Z20.822 Contact with and (suspected) exposure to COVID-19; Z95.2 Presence of prosthetic heart valve
CPT/HCPCS: 36415; 71046; 80048; 80053; 82607; 82746; 83735; 84443; 84484; 85025; 85610; 85730; 87636; 92960; 93005; 93312; 93320; 93325; 96365; 96366; 96375; 99291

== ENCOUNTER 2024-02-22 09:11 | Inpatient (IN) | payer OTHER ==
--- NOTE | 2024-02-22 09:47 | ED ---
General Adult HPI - General Chief complaint: Shortness of Breath Stated complaint: SOB/fast heart rate/chest pressure Time Seen by Provider: 02/22/24 09:15 Source: patient, RN notes reviewed, old records reviewed Mode of arrival: ambulatory Limitations: no limitations - History of Present Illness Initial comments: This is a 63-year-old female with a past medical history significant for atrial fibrillation and she is on Eliquis. Patient comes in today because the last 3 days she feels very short of breath and she states this is typical when she has an exacerbation of her atrial fibrillation. Patient states her swelling in her feet is also getting worse. Patient denies chest pain. Patient denies feeling the palpitation. Patient has a headache patient has numbness weakness. Patient denies abdominal pain patient has nausea vomiting diarrhea - Related Data Home Medications Medication Instructions Recorded Confirmed Apixaban [Eliquis] 5 mg PO BID 05/07/23 01/27/24 Letrozole 2.5 mg PO DAILY 05/07/23 01/25/24 Atorvastatin [Lipitor] 20 mg PO DAILY 12/06/23 01/25/24 Calcium Carbonate 500 mg PO DAILY 12/06/23 01/25/24 Previous Rx's Medication Instructions Recorded Amiodarone [Cordarone] 200 mg PO BID #180 tab 01/27/24 Metoprolol Tartrate [Lopressor] 25 mg PO BID #60 tab 01/27/24 Allergies Allergy/AdvReac Type Severity Reaction Status Date / Time No Known Allergies Allergy Verified 02/22/24 09:17 Review of Systems ROS Statement: Those systems with pertinent positive or pertinent negative responses have been documented in the HPI. ROS Other: All systems not noted in ROS Statement are negative. Past Medical History Past Medical History: Atrial Fibrillation, Asthma, Cancer, Osteoarthritis (OA), Skin Disorder Additional Past Medical History / Comment(s): Recent unexplained weight loss of 15 lbs over 2 months. Chronic Psoriasis, rash on thighs and ankles. CHILDHOOD ASTHMA. Hx left breast cancer 2020, had surgery and 6 weeks of radiation. History of Any Multi-Drug Resistant Organisms: None Reported Past Surgical History: Adenoidectomy, Breast Surgery, Cardiac Valve Replacement, Heart Catheterization, Tonsillectomy Additional Past Surgical History / Comment(s): LAPROSCOPY TO EVAULATE OVARIES, left mastectomy with implant, open heart 2015 - Aortic valve replacement Bovine, HANANE, Cardioversion. Past Anesthesia/Blood Transfusion Reactions: No Reported Reaction Past Psychological History: No Psychological Hx Reported Smoking Status: Current every day smoker Past Alcohol Use History: Occasional Past Drug Use History: None Reported - Past Family History Mother Family Medical History: Cancer Additional Family Medical History / Comment(s): Lung cancer with metastasis. Father Family Medical History: Coronary Artery Disease (CAD), Hypertension, Myocardial Infarction ([place]) General Exam - General Exam Comments Initial Comments: GENERAL: Patient is well-developed and well-nourished. Patient is nontoxic and well- hydrated and is in mild distress. ENT: Neck is soft and supple. No significant lymphadenopathy is noted. Oropharynx is clear. Moist mucous membranes. Neck has full range of motion without eliciting any pain. EYES: The sclera were anicteric and conjunctiva were pink and moist. Extraocular movements were intact and pupils were equal round and reactive to light. Eyelids were unremarkable. PULMONARY: Patient has slight crackles in the bases CARDIOVASCULAR: Patient is a regular rate and rhythm at 110 beats a minute ABDOMEN: Soft and nontender with normal bowel sounds. SKIN: Skin is clear with no lesions or rashes and otherwise unremarkable. NEUROLOGIC: Patient is alert and oriented x3. Cranial nerves II through XII are grossly intact. Motor and sensory are also intact. Normal speech, volume and content. Symmetrical smile. MUSCULOSKELETAL: Normal extremities with adequate strength and full range of motion. 1+ edema bilaterally LYMPHATICS: No significant lymphadenopathy is noted PSYCHIATRIC: Normal psychiatric evaluation. Limitations: no limitations Course Vital Signs 02/22/24 09:13 Temperature 97.6 F Pulse Rate 125 H Respiratory 22 Rate Blood Pressure 118/81 O2 Sat by Pulse 100 Oximetry Medical Decision Making - Medical Decision Making EKG shows atrial flutter at 112 bpm VA was 190 QRS 151 QT interval is 362 QTc is 428. Patient's EKG shows no ST segment elevation or depression. Was pt. sent in by a medical professional or institution (, PA, FURNITURE MAKER, urgent care, hospital, or shelter...) When possible be specific @ -No Did you speak to anyone other than the patient for history (EMS, parent, family, police, friend...)? What history was obtained from this source @ -No Did you review nursing and triage notes (agree or disagree)? Why? @ -I reviewed and agree with nursing and triage notes Were old charts reviewed (outside hosp., previous admission, EMS record, old EKG, old radiological studies, urgent care reports/EKG's, shelter records)? Report findings @ -No old charts were reviewed Differential Diagnosis? @ -Differential Dyspnea: Coronary syndrome, arrhythmia, tamponade, asthma, COPD, pulmonary embolism, pneumonia, pneumothorax, pulmonary effusion, anaphylaxis, diabetic ketoacidosis, flailed chest, pulmonary contusion, diaphragmatic rupture, anemia, neuromuscular, this is not meant to be an all-inclusive list. EKG interpreted by me (3pts min.). @ -As above X-rays interpreted by me (1pt min.). @ -Chest x-ray shows pulmonary edema CT interpreted by me (1pt min.). @ -None done U/S interpreted by me (1pt. min.). @ -None done What testing was considered but not performed or refused? (CT, X-rays, U/S, labs)? Why? @ -None What meds were considered but not given or refused? Why? @ -None Did you discuss the management of the patient with other professionals (sang pleitez i.e. , PA, FURNITURE MAKER, lab, RT, psych nurse, social service assistant, investment specialist, teacher, youth officer, supervisor case loading)? Give summary @ -I spoke with Dr. Garcia he agreed to admit the patient Was smoking cessation discussed for >3mins.? @ -No Was critical care preformed (if so, how long)? @ -No Were there social determinants of health that impacted care today? How? (Homelessness, low income, unemployed, alcoholism, drug addiction, transportation, low edu. Level, literacy, decrease access to med. care, penitentiary, rehab)? @ -No Was there de-escalation of care discussed even if they declined (Discuss DNR or withdrawal of care, Hospice)? DNR status @ -No What co-morbidities impacted this encounter? (DM, HTN, Smoking, COPD, CAD, Cancer, CVA, ARF, Chemo, Hep., AIDS, mental health diagnosis, sleep apnea, morbid obesity)? @ -None Was patient admitted / discharged? Hospital course, mention meds given and route, prescriptions, significant lab abnormalities, going to OR and other pertinent info. @ -Patient had pulmonary edema on the x-ray patient will be getting Lasix and Nitropaste in the emergency department. Patient will be admitted to Dr. Bertrand and cardiology will be consulted Undiagnosed new problem with uncertain prognosis? @ -No Drug Therapy requiring intensive monitoring for toxicity (Heparin, Nitro, Insulin, Cardizem)? @ -No Were any procedures done? @ -No Diagnosis/symptom? @ -Acute pulmonary edema Acute, or Chronic, or Acute on Chronic? @ -Acute Uncomplicated (without systemic symptoms) or Complicated (systemic symptoms)? @ -Complicate Side effects of treatment? @ -No Exacerbation, Progression, or Severe Exacerbation? @ -No Poses a threat to life or bodily function? How? (Chest pain, [place], [place], pneumonia, PE, COPD, DKA, ARF, appy, cholecystitis, CVA, Diverticulitis, Homicidal, Suicidal, threat to staff... and all critical care pts) @ -Yes this can lead to hypoxia and endorgan dysfunction - Lab Data Result diagrams: 02/22/24 11:10 02/22/24 11:10 Lab Results 02/22/24 02/22/24 02/22/24 Range/Units 11:10 11:10 11:10 WBC 13.3 H (3.8-10.6) k/uL RBC 3.98 (3.80-5.40) m/uL Hgb 14.9 (11.4-16.0) gm/dL Hct 45.4 (34.0-46.0) % MCV 114.0 H (80.0-100.0) fL MCH 37.3 H (25.0-35.0) pg MCHC 32.7 (31.0-37.0) g/dL RDW 15.2 (11.5-15.5) % Plt Count 218 (150-450) k/uL MPV 8.3 Neutrophils % 87 % Lymphocytes % 7 % Monocytes % 5 % Eosinophils % 1 % Basophils % 0 % Neutrophils # 11.6 H (1.3-7.7) k/uL Lymphocytes # 0.9 L (1.0-4.8) k/uL Monocytes # 0.6 (0-1.0) k/uL Eosinophils # 0.1 (0-0.7) k/uL Basophils # 0.1 (0-0.2) k/uL Manual Slide Review Performed Macrocytosis Marked A PT 14.0 H (10.0-12.5) sec INR 1.3 H (<1.2) APTT 28.8 (22.0-30.0) sec Sodium 135 L (137-145) mmol/L Potassium 4.0 (3.5-5.1) mmol/L Chloride 101 (98-107) mmol/L Carbon Dioxide 24 (22-30) mmol/L Anion Gap 10 mmol/L BUN 10 (7-17) mg/dL Creatinine 0.68 (0.52-1.04) mg/dL Est GFR (CKD-EPI)AfAm >90 (>60 ml/min/1.73 sqM) Est GFR (CKD-EPI)NonAf >90 (>60 ml/min/1.73 sqM) Glucose 120 H (74-99) mg/dL Plasma Lactic Acid Marcos (0.7-2.0) mmol/L Calcium 9.8 (8.4-10.2) mg/dL Magnesium 1.4 L (1.6-2.3) mg/dL Total Bilirubin 2.4 H (0.2-1.3) mg/dL AST 62 H (14-36) U/L ALT 23 (4-34) U/L Alkaline Phosphatase 184 H (38-126) U/L Troponin I (0.000-0.034) ng/mL NT-Pro-B Natriuret Pep 78611 pg/mL Total Protein 6.8 (6.3-8.2) g/dL Albumin 4.4 (3.5-5.0) g/dL 24 02/22/24 Range/Units 11:10 11:10 WBC (3.8-10.6) k/uL RBC (3.80-5.40) m/uL Hgb (11.4-16.0) gm/dL Hct (34.0-46.0) % MCV (80.0-100.0) fL MCH (25.0-35.0) pg MCHC (31.0-37.0) g/dL RDW (11.5-15.5) % Plt Count (150-450) k/uL MPV Neutrophils % % Lymphocytes % % Monocytes % % Eosinophils % % Basophils % % Neutrophils # (1.3-7.7) k/uL Lymphocytes # (1.0-4.8) k/uL Monocytes # (0-1.0) k/uL Eosinophils # (0-0.7) k/uL Basophils # (0-0.2) k/uL Manual Slide Review Macrocytosis PT (10.0-12.5) sec INR (<1.2) APTT (22.0-30.0) sec Sodium (137-145) mmol/L Potassium (3.5-5.1) mmol/L Chloride (98-107) mmol/L Carbon Dioxide (22-30) mmol/L Anion Gap mmol/L BUN (7-17) mg/dL Creatinine (0.52-1.04) mg/dL Est GFR (CKD-EPI)AfAm (>60 ml/min/1.73 sqM) Est GFR (CKD-EPI)NonAf (>60 ml/min/1.73 sqM) Glucose (74-99) mg/dL Plasma Lactic Acid Marcos 2.2 H* (0.7-2.0) mmol/L Calcium (8.4-10.2) mg/dL Magnesium (1.6-2.3) mg/dL Total Bilirubin (0.2-1.3) mg/dL AST (14-36) U/L ALT (4-34) U/L Alkaline Phosphatase (38-126) U/L Troponin I 0.042 H* (0.000-0.034) ng/mL NT-Pro-B Natriuret Pep pg/mL Total Protein (6.3-8.2) g/dL Albumin (3.5-5.0) g/dL Disposition Clinical Impression: Acute pulmonary edema Disposition: ADMITTED IP TO THIS HOSP Referrals: Mil Garcia Jr, [Primary Care Provider] - 1-2 days Time of Disposition: 12:11
--- NOTE | 2024-02-22 11:07 | XR ---
EXAMINATION TYPE: XR chest 2V DATE OF EXAM: 02/22/2024 COMPARISON: 12/25/2023 CLINICAL INDICATION: Female, 63 years old with history of difficulty breathing; , TECHNIQUE: XR chest 2V views of the chest. FINDINGS: Diffuse emphysematous changes with patchy attenuation in the left upper lobe. Post median sternotomy changes. Cardiac valve replacement surgery. Coarsened interstitium. No sizable pneumothorax. Tiny ple ural effusion.. Heart size normal and no overt failure. Osseous structures demonstrate hypertrophic and degenerative changes of the spine. IMPRESSION: 1. COPD correlate for a superimposed chronic interstitial lung disease or pneumonitis. Mild venous co ngestion not excluded. 2. Faint asymmetric consolidation in the left upper lobe. Correlate clinically to exclude early pneum onia. [facility], , 02/22/2024 11:05 AM
[2024-02-22 11:21] LABS: Basophils # (A) 0.1 k/uL (0-0.2); Basophils % (A) 0 %; Eosinophils # (A) 0.1 k/uL (0-0.7); Eosinophils % (A) 1 %; HCT 45.4 % (34.0-46.0); HGB 14.9 gm/dL (11.4-16.0); Lymphocytes # (A) 0.9 k/uL (1.0-4.8); Lymphocytes % (A) 7 %; MCH 37.3 pg (25.0-35.0); MCHC 32.7 g/dL (31.0-37.0); Macrocytosis Marked; Mean Platelet Volume 8.3; Monocytes # (A) 0.6 k/uL (0-1.0); Monocytes % (A) 5 %; Neutrophils # (A) 11.6 k/uL (1.3-7.7); Neutrophils % (A) 87 %; Platelet Count 218 k/uL (150-450); RBC 3.98 m/uL (3.80-5.40); RDW 15.2 % (11.5-15.5); WBC 13.3 k/uL (3.8-10.6)
[2024-02-22 11:38] LABS: ALT 23 U/L (4-34); AST 62 U/L (14-36); African American GFR (CKD) >90 (>60 ml/min/1.73 sqM); Albumin 4.4 g/dL (3.5-5.0); Alkaline Phosphatase 184 U/L (38-126); Anion Gap 10 mmol/L; Blood Urea Nitrogen 10 mg/dL (7-17); Calcium 9.8 mg/dL (8.4-10.2); Carbon Dioxide 24 mmol/L (22-30); Chloride 101 mmol/L (98-107); Glucose 120 mg/dL (74-99); Magnesium 1.4 mg/dL (1.6-2.3); Non-African American GFR(CKD) >90 (>60 ml/min/1.73 sqM); Sodium 135 mmol/L (137-145); Total Bilirubin 2.4 mg/dL (0.2-1.3); Total Protein 6.8 g/dL (6.3-8.2)
[2024-02-22 11:47] LABS: NT-Pro-B-Type Natriuretic Pept 27600 pg/mL
[2024-02-22 11:49] LABS: INR 1.3 (<1.2); Partial Thromboplastin Time 28.8 sec (22.0-30.0)
[2024-02-22] MEDS: NITROGLYCERIN OINT 1 INCH/GM PACKET TOPICAL STA (12:20)
[2024-02-22] MEDS: FUROSEMIDE 10 MG/ML 4 ML VIAL IV STA (12:21)
--- NOTE | 2024-02-22 13:13 | P.HPIM ---
History of Present Illness H&P Date: 02/22/24 Chief Complaint: known A. fib and congestive heart failure patient presented to the hospital with shortness of breath and mild chest pain radiating to the left arm currently in A. fib with a rate of about 105 110, her BNP was 27,000 patients in acute congestive heart failure Review of Systems Constitutional: Reports fatigue, Reports weakness Ears, nose, mouth and throat: Reports as per HPI Cardiovascular: Reports chest pain, Reports decreased exercise tolerance, Reports dyspnea on exertion, Reports edema, Reports high blood pressure, Reports irregular heart beat, Reports rapid heart beat, Reports shortness of breath Respiratory: Reports congestion Gastrointestinal: Reports as per HPI Genitourinary: Reports urinary frequency Menstruation: Reports postmenopausal Musculoskeletal: Reports as per HPI Integumentary: Reports as per HPI Neurological: Reports as per HPI Psychiatric: Reports as per HPI Endocrine: Reports as per HPI Past Medical History Past Medical History: Atrial Fibrillation, Asthma, Cancer, Osteoarthritis (OA), Skin Disorder Additional Past Medical History / Comment(s): Recent unexplained weight loss of 15 lbs over 2 months. Chronic Psoriasis, rash on thighs and ankles. CHILDHOOD ASTHMA. Hx left breast cancer 2020, had surgery and 6 weeks of radiation. History of Any Multi-Drug Resistant Organisms: None Reported Past Surgical History: Adenoidectomy, Breast Surgery, Cardiac Valve Replacement, Heart Catheterization, Tonsillectomy Additional Past Surgical History / Comment(s): LAPROSCOPY TO EVAULATE OVARIES, left mastectomy with implant, open heart 2015 - Aortic valve replacement Bovine, HANANE, Cardioversion. Past Anesthesia/Blood Transfusion Reactions: No Reported Reaction Past Psychological History: No Psychological Hx Reported Smoking Status: Current every day smoker Past Alcohol Use History: Occasional Past Drug Use History: None Reported - Past Family History Mother Family Medical History: Cancer Additional Family Medical History / Comment(s): Lung cancer with metastasis. Father Family Medical History: Coronary Artery Disease (CAD), Hypertension, Myocardial Infarction ([place]) Medications and Allergies Home Medications Medication Instructions Recorded Confirmed Type Apixaban [Eliquis] 5 mg PO BID 05/07/23 02/22/24 History Atorvastatin [Lipitor] 20 mg PO DAILY 12/06/23 02/22/24 History Cholecalciferol [Vitamin D3 (125 125 mcg PO DAILY 02/22/24 02/22/24 History Mcg = 5000 Iu)] Metoprolol Tartrate [Lopressor] 25 mg PO DAILY 02/22/24 02/22/24 History Multivitamins, Thera [Multivitamin 1 tab PO DAILY 02/22/24 02/22/24 History (formulary)] Vitamin E (Dl,Tocopheryl Acet) 400 unit PO DAILY 02/22/24 02/22/24 History [Vitamin E (400 Iu = 180 mg)] Allergies Allergy/AdvReac Type Severity Reaction Status Date / Time No Known Allergies Allergy Verified 02/22/24 12:56 Physical Exam Osteopathic Statement: *. No significant issues noted on an osteopathic structural exam other than those noted in the History and Physical/Consult. Vitals: Vital Signs Temp Pulse Resp BP Pulse Ox 02/22/24 12:15 101 H 20 112/80 97 02/22/24 09:13 97.6 F 125 H 22 118/81 100 Intake and Output 02/21/24 02/22/24 02/22/24 22:59 06:59 14:59 Other: Weight 50.802 kg General: [Patient awake, alert and oriented times 3. Patient in no acute distress.] HEENT: [PERRL. EOMI. No pharyngeal erythema or exudate.] Neck: [No adenopathy.] Cardiac: [Heart regular in rate and rhythm. No S3. No S4. No clicks, rubs. No murmur. midline surgical incision chest Lungs: [Clear to auscultation bilaterally.] Abdomen: [No mass. No organomegaly. Bowel sounds presnt and normoactive in all 4 quadrants.] Extremes: [No edema no cyanosis no claudication normal pulses] : normal female genitalia Musculoskeletal: [No joint erythema, edema or tenderness.] Skin: [No rash.] Neurologic: [No lateralizing deficits. CN II - XII grossly intact.] Lymphatic: [No adenopathy.] Results CBC & Chem 7: 02/22/24 11:10 02/22/24 11:10 Labs: Abnormal Lab Results - Last 24 Hours (Table) 02/22/24 02/22/24 02/22/24 Range/Units 11:10 11:10 11:10 WBC 13.3 H (3.8-10.6) k/uL MCV 114.0 H (80.0-100.0) fL MCH 37.3 H (25.0-35.0) pg Neutrophils # 11.6 H (1.3-7.7) k/uL Lymphocytes # 0.9 L (1.0-4.8) k/uL Macrocytosis Marked A PT 14.0 H (10.0-12.5) sec INR 1.3 H (<1.2) Sodium 135 L (137-145) mmol/L Glucose 120 H (74-99) mg/dL Plasma Lactic Acid Marcos (0.7-2.0) mmol/L Magnesium 1.4 L (1.6-2.3) mg/dL Total Bilirubin 2.4 H (0.2-1.3) mg/dL AST 62 H (14-36) U/L Alkaline Phosphatase 184 H (38-126) U/L Troponin I (0.000-0.034) ng/mL 02/22/24 02/22/24 Range/Units 11:10 11:10 WBC (3.8-10.6) k/uL MCV (80.0-100.0) fL MCH (25.0-35.0) pg Neutrophils # (1.3-7.7) k/uL Lymphocytes # (1.0-4.8) k/uL Macrocytosis PT (10.0-12.5) sec INR (<1.2) Sodium (137-145) mmol/L Glucose (74-99) mg/dL Plasma Lactic Acid Marcos 2.2 H* (0.7-2.0) mmol/L Magnesium (1.6-2.3) mg/dL Total Bilirubin (0.2-1.3) mg/dL AST (14-36) U/L Alkaline Phosphatase (38-126) U/L Troponin I 0.042 H* (0.000-0.034) ng/mL Assessment and Plan (1) Acute diastolic congestive heart failure due to valvular disease Current Visit: Yes Status: Acute Code(s): I50.31 - ACUTE DIASTOLIC (CONGESTIVE) HEART FAILURE; I38 - ENDOCARDITIS, VALVE UNSPECIFIED SNOMED Code(s): 09107881 (2) Atrial fibrillation and flutter Current Visit: Yes Status: Acute Code(s): I48.91 - UNSPECIFIED ATRIAL FIBRILLATION; I48.92 - UNSPECIFIED ATRIAL FLUTTER SNOMED Code(s): 85289920 (3) Acute pulmonary edema Current Visit: Yes Status: Acute Code(s): J81.0 - ACUTE PULMONARY EDEMA SNOMED Code(s): 74937320 (4) Atrial flutter Current Visit: No Status: Acute Code(s): I48.92 - UNSPECIFIED ATRIAL FLUTTER SNOMED Code(s): 0144401 (5) senior living current use of anticoagulant Current Visit: No Status: Acute Code(s): Z79.01 - CARE MANAGEMENT COORDINATOR (CURRENT) USE OF ANTICOAGULANTS SNOMED Code(s): 934735707 (6) Troponin level elevated Current Visit: No Status: Acute Code(s): R79.89 - OTHER SPECIFIED ABNORMAL FINDINGS OF BLOOD CHEMISTRY SNOMED Code(s): 402463543 Plan: admitted to the hospital BNP greater than 27,000 A. fib with rapid response Cardiology consultation Diuresis Rate control Anticoagulation We'll follow closely Time with Patient: Greater than 30
[2024-02-22] MEDS: FUROSEMIDE 10 MG/ML 4 ML VIAL IV SCH (18:21)
[2024-02-22] MEDS: NITROGLYCERIN OINT 1 INCH/GM PACKET TOPICAL SCH (18:21)
[2024-02-22] MEDS: APIXABAN 5 MG TAB PO SCH (20:58)
[2024-02-22] MEDS: ALPRAZolam 0.25 MG TAB PO PRN (21:23)
[2024-02-23] MEDS: MULTIVITAMINS, THERA 1 EACH TAB PO SCH (08:08)
[2024-02-23] MEDS: ATORVASTATIN 20 MG TAB PO SCH (08:08)
[2024-02-23] MEDS: CHOLECALCIFEROL 125 MCG (5000 IU) TABLET PO SCH (08:08)
[2024-02-23] MEDS: VITAMIN E (DL,TOCOPHERYL ACET) 400 UNIT (180 MG) CAP PO SCH (08:08)
[2024-02-23] MEDS: METOPROLOL TARTRATE 25 MG TAB PO SCH (08:08)
[2024-02-23] MEDS: AMIODARONE 200 MG TAB PO SCH (11:52)
[2024-02-23] MEDS: ALPRAZolam 0.25 MG TAB PO PRN (11:52)
--- NOTE | 2024-02-23 12:25 | P.PN ---
Subjective Progress Note Date: 02/23/24 Principal diagnosis: elevated BNP congestive heart failure, A. fib and atrial flutter Patient is awake alert oriented 3 vital signs are stable patient is a prominent bile is currently in A. fib flutter cardiology is evaluating the patient started amiodarone today considering ablation if necessary, patient is in good spirits and comfortable even though today is Objective - Vital Signs Vital signs: Vital Signs Temp 97.8 F 02/23/24 08:05 Pulse 125 H 02/23/24 08:05 Resp 18 02/23/24 08:05 BP 97/60 02/23/24 08:05 Pulse Ox 95 02/23/24 08:53 FiO2 Intake & Output 02/22/24 02/23/24 02/23/24 18:59 06:59 18:59 Intake Total 240 Output Total 200 Balance -200 240 Weight 50.802 kg 50.6 kg Intake: Oral 240 Output: Urine 200 Other: Voiding Method Bedside Commode Bedside Commode - Exam General: [Patient awake, alert and oriented times 3. Patient in no acute distress.] HEENT: [PERRL. EOMI. No pharyngeal erythema or exudate.] Neck: [No adenopathy.] Cardiac: [Heart regular in rate and rhythm. No S3. No S4. No clicks, rubs. No murmur.] Lungs: [Clear to auscultation bilaterally.] Abdomen: [No mass. No organomegaly. Bowel sounds presnt and normoactive in all 4 quadrants.] Extremes: [No edema no cyanosis no claudication normal pulses] Musculoskeletal: [No joint erythema, edema or tenderness.] Skin: [No rash.] Neurologic: [No lateralizing deficits. CN II - XII grossly intact.] Lymphatic: [No adenopathy.] - Labs CBC & Chem 7: 02/22/24 11:10 02/22/24 11:10 Labs: Abnormal Lab Results - Last 24 Hours (Table) 02/22/24 Range/Units 14:09 Plasma Lactic Acid Marcos 2.2 H* (0.7-2.0) mmol/L Assessment and Plan (1) Acute diastolic congestive heart failure due to valvular disease Current Visit: Yes Status: Acute Code(s): I50.31 - ACUTE DIASTOLIC (CONGESTIVE) HEART FAILURE; I38 - ENDOCARDITIS, VALVE UNSPECIFIED SNOMED Code(s): 63528004 (2) Atrial fibrillation and flutter Current Visit: Yes Status: Acute Code(s): I48.91 - UNSPECIFIED ATRIAL FIBRILLATION; I48.92 - UNSPECIFIED ATRIAL FLUTTER SNOMED Code(s): 41910469 (3) Acute pulmonary edema Current Visit: Yes Status: Acute Code(s): J81.0 - ACUTE PULMONARY EDEMA SNOMED Code(s): 35704864 (4) Atrial flutter Current Visit: No Status: Acute Code(s): I48.92 - UNSPECIFIED ATRIAL FLUTTER SNOMED Code(s): 3639085 (5) retirement current use of anticoagulant Current Visit: No Status: Acute Code(s): Z79.01 - PENITENTIARY (CURRENT) USE OF ANTICOAGULANTS SNOMED Code(s): 191233719 (6) Troponin level elevated Current Visit: No Status: Acute Code(s): R79.89 - OTHER SPECIFIED ABNORMAL FINDINGS OF BLOOD CHEMISTRY SNOMED Code(s): 658997371 Plan: Patient is breathing better Still in flutter Cardiology started amiodarone Still anticoagulated Consider ablation We'll follow closely Time with Patient: Greater than 30
--- NOTE | 2024-02-23 14:13 | CONS ---
CONSULTATION HISTORY OF PRESENT ILLNESS: Ivis is a 63-year-old lady with history of aortic valve replacement with a mechanical valve with [id number] aortic regurgitation, who presented to hospital with shortness of breath, leg edema secondary to acute-onset congestive heart failure. The patient was also in atrial flutter with poorly controlled ventricular rate. At the time of my evaluation, the patient had been treated with intravenous diuretics with improvement in her symptoms. She denies chest pain. There is no history of PND or orthopnea. I am going to start her on amiodarone and see if she will revert back to sinus rhythm, continue the anticoagulant, continue the IV Lasix. I will repeat an echo on her primarily to assess the prosthetic valve and to reassess the LV function given the unexplained new-onset heart failure. PAST MEDICAL HISTORY: Significant for aortic stenosis, status post aortic valve replacement and paroxysmal atrial fibrillation. MEDICATIONS: Include: 1. Lopressor. 2. Lipitor. 3. Eliquis. ALLERGIES: No known drug allergies. FAMILY HISTORY: Negative for premature coronary artery disease. SOCIAL HISTORY: Negative for current smoking, EtOH abuse, or drug abuse. REVIEW OF SYSTEMS: HEENT: Unremarkable. CARDIAC: As described above. RESPIRATORY: Negative. GI: Negative. GENITOURINARY: Negative. ALLERGY/IMMUNOLOGY: Negative. SKIN: Negative. MUSCULOSKELETAL: Significant for arthritis. PSYCHOSOCIAL: Negative. DERM: Negative. CONSTITUTIONAL: Negative. ONCOLOGICAL: Negative. SYSTEMS COORDINATOR: Negative. Rest of the system review is not relevant. PHYSICAL EXAMINATION: VITAL SIGNS: Heart rate is 120 beats per minute, blood pressure is 97/60, respiratory rate is 18, O2 saturation is 99%. NECK: There is no jugular venous distention. Carotid upstroke is normal. There is no bruit. CHEST: Reveals good air entry bilaterally. HEART: Reveals first and second heart sounds. Ejection systolic murmur in the aortic area. ABDOMEN: Soft. EXTREMITIES: Did not reveal any edema. Peripheral pulses are felt. LABORATORY DATA: Showed that the BNP is elevated at 27,600. Potassium is 4, creatinine 0.6. Hemoglobin is 14.9. EKG shows typical atrial flutter. ASSESSMENT: 1. Acute onset diastolic heart failure. 2. Typical atrial flutter. 3. Status post aortic valve replacement with [id number] regurgitation of the prosthetic valve. PLAN: We will treat the patient with IV Lasix. Continue the anticoagulant. Start amiodarone and continue the beta-bc. MMODL / IJN: [id number] /
[2024-02-23] MEDS: FUROSEMIDE 10 MG/ML 4 ML VIAL IV SCH (20:30)
[2024-02-24 12:24] LABS: Appearance,Urine Turbid (Clear); Bacteria,Urine Occasional /hpf; Bilirubin,Urine Negative (Negative); Blood,Urine Large (Negative); Color,Urine Light Red; Glucose,Urine (UA) Negative (Negative); Hyaline Casts,Urine 20 /lpf (0-2); Ketones,Urine Trace (Negative); Leukocyte Esterase,Urine Large (Negative); Mucus,Urine Occasional /hpf; Nitrite,Urine Negative (Negative); Protein,Urine 2+ (Negative); RBC,Urine 143 /hpf (0-5); Specific Gravity,Urine 1.021 (1.001-1.035); WBC,Urine >182 /hpf (0-5)
--- NOTE | 2024-02-24 13:49 | P.PN ---
Subjective Progress Note Date: 02/24/24 Principal diagnosis: elevated BNP congestive heart failure, A. fib and atrial flutter,pelvic tenderness associated with urinary tract infection Patient is awake alert oriented 3 vital signs are stable patient is a prominent bile is currently in A. fib flutter cardiology is evaluating the patient started amiodarone today considering ablation if necessary, patient is in good spirits and comfortable even though today is patient is awake alert vital signs are stable patient is afebrile complaining of suprapubic pelvic pain Objective - Vital Signs Vital signs: Vital Signs Temp 97.9 F 02/24/24 08:00 Pulse 76 02/24/24 08:00 Resp 18 02/24/24 08:00 BP 90/56 02/24/24 11:11 Pulse Ox 96 02/24/24 08:19 FiO2 Intake & Output 02/23/24 02/24/24 02/24/24 18:59 06:59 18:59 Intake Total 480 240 Balance 480 240 Weight 50.7 kg Intake: Oral 480 240 Other: Voiding Method Bedside Commode Bedside Commode Bedside Commode # Voids 4 1 - Exam General: [Patient awake, alert and oriented times 3. Patient in no acute distress.] HEENT: [PERRL. EOMI. No pharyngeal erythema or exudate.] Neck: [No adenopathy.] Cardiac: [Heart regular in rate and rhythm. No S3. No S4. No clicks, rubs. No murmur.] Lungs: [Clear to auscultation bilaterally.] Abdomen: [No mass. No organomegaly. Bowel sounds presnt and normoactive in all 4 quadrants.] Extremes: [No edema no cyanosis no claudication normal pulses] Musculoskeletal: [No joint erythema, edema or tenderness.] suprapubic pelvic pain Skin: [No rash.] Neurologic: [No lateralizing deficits. CN II - XII grossly intact.] Lymphatic: [No adenopathy.] - Labs CBC & Chem 7: 02/22/24 11:10 02/22/24 11:10 Labs: Abnormal Lab Results - Last 24 Hours (Table) 02/24/24 Range/Units 11:00 Urine Appearance Turbid H (Clear) Urine Protein 2+ H (Negative) Urine Ketones Trace H (Negative) Urine Blood Large H (Negative) Ur Leukocyte Esterase Large H (Negative) Urine RBC 143 H (0-5) /hpf Urine WBC >182 H (0-5) /hpf Urine WBC Clumps Many H (None) /hpf Urine Bacteria Occasional H (None) /hpf Hyaline Casts 20 H (0-2) /lpf Urine Mucus Occasional H (None) /hpf Assessment and Plan Assessment: recent urinary tract infection (1) Acute diastolic congestive heart failure due to valvular disease Current Visit: Yes Status: Acute Code(s): I50.31 - ACUTE DIASTOLIC (CONGESTIVE) HEART FAILURE; I38 - ENDOCARDITIS, VALVE UNSPECIFIED SNOMED Code(s): 10723101 (2) Atrial fibrillation and flutter Current Visit: Yes Status: Acute Code(s): I48.91 - UNSPECIFIED ATRIAL FIBRILLATION; I48.92 - UNSPECIFIED ATRIAL FLUTTER SNOMED Code(s): 60529911 (3) Acute pulmonary edema Current Visit: Yes Status: Acute Code(s): J81.0 - ACUTE PULMONARY EDEMA SNOMED Code(s): 40287064 (4) Atrial flutter Current Visit: No Status: Acute Code(s): I48.92 - UNSPECIFIED ATRIAL FLUTTER SNOMED Code(s): 1153255 (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
--- NOTE | 2024-02-24 15:41 | P.PN ---
Subjective Progress Note Date: 02/24/24 SUBJECTIVE: Patient is in sinus rhythm today. Blood pressure is low normal. BP 80/49 Patient is noticed to be hypotensive today. Her diuretic and beta-bc was held. PHYSICAL EXAMINATION Vital signs reviewed. Head: Normocephalic. Eyes: Sclerae nonicteric. Neck: Brisk carotid upstroke, no jugular venous distention. Lungs: Clear to auscultation. Heart: Regular rate and rhythm, S1-S2, no S3, no murmur or rub. Abdomen: Soft nontender, bowel sounds present, Extremities: No edema, Neuro: Alert, oriented, no focal neurological deficits. Detailed neuro exam was not performed. ASSESSMENT Acute HFpEF exacerbation Atrial fibrillation on admission, converted back to sinus rhythm after amiodaron e per. Currently in sinus rhythm History of surgical aortic valve replacement with a prosthetic valve in 2016 PLAN Started on amiodarone on this admission. Continue amiodarone 400 mg twice daily until 03/01/2024, decreased to 200 mg twice daily and continue until 03/08/2024,, thereafter continue amiodarone 200 mg daily. Obtain updated echocardiogram Recommend outpatient A-fib/flutter ablation evaluation Continue metoprolol succinate 25 mg daily Continue Eliquis 5 mg twice daily Continue Lipitor 20 mg daily Anticipate discharge in next 24 to 48 hours once blood pressure improves. Discontinue diuretics and antihypertensives. Juan Alberto Ross MD, FACC, RPVI Thank you for allowing [facility] to participate in this patient's care. Please contact us in case of any followup questions. Objective - Vital Signs Vital signs: Vital Signs Temp 97.9 F 02/24/24 08:00 Pulse 76 02/24/24 08:00 Resp 18 02/24/24 08:00 BP 90/56 02/24/24 11:11 Pulse Ox 96 02/24/24 08:19 FiO2 Intake & Output 02/23/24 02/24/24 02/24/24 18:59 06:59 18:59 Intake Total 480 358 Balance 480 358 Weight 50.7 kg 50.7 kg Intake: Oral 480 358 Other: Voiding Method Bedside Commode Bedside Commode Bedside Commode # Voids 4 1 - Labs CBC & Chem 7: 02/22/24 11:10 02/22/24 11:10 Labs: Abnormal Lab Results - Last 24 Hours (Table) 02/24/24 Range/Units 11:00 Urine Appearance Turbid H (Clear) Urine Protein 2+ H (Negative) Urine Ketones Trace H (Negative) Urine Blood Large H (Negative) Ur Leukocyte Esterase Large H (Negative) Urine RBC 143 H (0-5) /hpf Urine WBC >182 H (0-5) /hpf Urine WBC Clumps Many H (None) /hpf Urine Bacteria Occasional H (None) /hpf Hyaline Casts 20 H (0-2) /lpf Urine Mucus Occasional H (None) /hpf
--- NOTE | 2024-02-24 17:00 | CA ---
Transthoracic Echo Report Name: Ivis Mercado Age: 63 Gender: F : 1960 Exam Date: 02/24/2024 10:21 Exam Location: [place] Echo Ht (in): 64 Wt (lb): 111 Ordering Physician: Vahid Apple MD ([id number]) Attending/Referring Phys: Zechariah RICHTER Travel Professional Sylwia Hadley RDCS Procedure CPT: Indications: elevated BNP, SOB Cardiac Hx: Technical Quality: Good Contrast 1: Total Dose (mL): Contrast 2: Total Dose (mL): MEASUREMENTS (Male / Female) Normal Values 2D ECHO LV Diastolic Diameter PLAX 4.3 cm 4.2 - 5.9 / 3.9 - 5.3 cm LV Systolic Diameter PLAX 3.0 cm IVS Diastolic Thickness 1.3 cm 0.6 - 1.0 / 0.6 - 0.9 cm LVPW Diastolic Thickness 1.0 cm 0.6 - 1.0 / 0.6 - 0.9 cm LV Relative Wall Thickness 0.5 LVOT Diameter 2.0 cm LV Diastolic Volume MOD BP 86.9 cm??? 67 - 155 / 56 - 104 cm??? LV Systolic Volume MOD BP 39.7 cm??? 22 - 58 / 19 - 49 cm??? LV Ejection Fraction MOD BP 54.2 % >= 55 % LV Cardiac Index MOD BP 2321.6 cm???/min???m??? LV Diastolic Volume MOD 4C 78.3 cm??? LV Systolic Volume MOD 4C 33.9 cm??? LV Ejection Fraction MOD 4C 56.7 % LV Cardiac Index MOD 4C 2187.3 cm???/min???m??? LV Diastolic Length 4C 6.9 cm LV Systolic Length 4C 6.3 cm LV Diastolic Volume MOD 2C 91.3 cm??? LV Systolic Volume MOD 2C 45.4 cm??? LV Ejection Fraction MOD 2C 50.3 % LV Cardiac Index MOD 2C 2263.5 cm???/min???m??? LV Diastolic Length 2C 7.3 cm LV Systolic Length 2C 6.5 cm LA Volume 72.0 cm??? 18 - 58 / 22 - 52 cm??? LA Volume Index 47.9 cm???/m??? 16 - 28 cm???/m??? Ascending Aorta Diameter 4.2 cm DOPPLER AV Peak Velocity 589.2 cm/s AV Peak Gradient 138.8 mmHg AV Mean Velocity 468.7 cm/s AV Mean Gradient 95.2 mmHg AV Velocity Time Integral 166.8 cm LVOT Peak Velocity 97.0 cm/s LVOT Peak Gradient 3.8 mmHg LVOT Velocity Time Integral 21.9 cm LVOT Stroke Volume 67.6 cm??? LVOT Stroke Volume Index 44.4 ml/m??? LVOT Cardiac Index 3330.7 cm???/min???m??? AV Area Cont Eq vti 0.4 cm??? AV Area Cont Eq pk 0.5 cm??? MV Peak Velocity 144.2 cm/s MV Peak Gradient 8.3 mmHg MV Mean Velocity 72.8 cm/s MV Mean Gradient 2.5 mmHg MV Velocity Time Integral 27.2 cm MV Area PHT 5.7 cm??? MR Peak Velocity 698.9 cm/s MR Peak Gradient 195.4 mmHg Mitral E Point Velocity 105.3 cm/s Mitral A Point Velocity 54.6 cm/s Mitral E to A Ratio 1.9 MV Deceleration Time 133.9 ms TR Peak Velocity 332.7 cm/s TR Peak Gradient 44.3 mmHg Right Atrial Pressure 5.0 mmHg Pulmonary Artery Systolic Pressu 49.3 mmHg Right Ventricular Systolic Press 49.3 mmHg PV Peak Velocity 71.4 cm/s PV Peak Gradient 2.0 mmHg FINDINGS Left Ventricle Left ventricular ejection fraction is estimated at 50-55 %. Mildly increased septal wall thickness. Mildly decreased left ventricular ejection fraction. No obvious regional wall motion abnormalities. Right Ventricle Right ventricular dilatation with mildly reduced function. Moderate pulmonary hypertension. Right Atrium Severe right atrial dilatation. Left Atrium Moderately increased left atrial volume. Mitral Valve Mitral valve thickened. Mitral annular calcification. No evidence for mitral valve prolapse. Minimal mitral stenosis. [id number]-[id number] mitral regurgitation. Aortic Valve Bioprosthetic aortic valve with stenosis with a peak velocity of 6.1 m/s, peak gradient 148 mmHg, mean gradient 104 mmHg, and estimated aortic valve area of 0.4 cm???. Cenm-kw-vdfxyxfj aortic regurgitation. Tricuspid Valve Structurally normal tricuspid valve. No tricuspid stenosis. Qfjj-wy-[id number] tricuspid regurgitation. Pulmonic Valve Structurally normal pulmonic valve. No pulmonic stenosis. Trace pulmonic regurgitation. Pericardium No pericardial effusion. Aorta Aortic annulus normal. Mildly dilated proximal ascending aorta (tube). CONCLUSIONS Normal LV systolic function Mild to moderate atrial regurgitation Mild to moderate aortic regurgitation Prosthetic valve stenosis with a peak gradient of 148 mm and a mean gradient of 104 mm Previewed by: Dr. Vahid Apple MD (Electronically Signed) Final Date: 24 February 2024 16:59
[2024-02-24 18:27] LABS: INR 1.3 (<1.2); Prothrombin Time 14.2 sec (10.0-12.5)
[2024-02-24 18:46] LABS: Basophils % (A) 0 %; Eosinophils # (A) 0.1 k/uL (0-0.7); Eosinophils % (A) 0 %; HCT 45.8 % (34.0-46.0); HGB 15.2 gm/dL (11.4-16.0); Lymphocytes # (A) 1.4 k/uL (1.0-4.8); Lymphocytes % (A) 11 %; MCH 38.5 pg (25.0-35.0); MCHC 33.1 g/dL (31.0-37.0); Macrocytosis Marked; Mean Platelet Volume 8.3; Monocytes # (A) 0.6 k/uL (0-1.0); Monocytes % (A) 4 %; Neutrophils # (A) 11.1 k/uL (1.3-7.7); Neutrophils % (A) 84 %; Platelet Count 200 k/uL (150-450); RBC 3.95 m/uL (3.80-5.40); RDW 15.1 % (11.5-15.5); WBC 13.3 k/uL (3.8-10.6)
[2024-02-24] MEDS: HEPARIN SOD,PORK IN 0.45% NACL 25,000 UNIT in 0.45% NACL 1 250ML.BAG IV SCH ×2 (18:56→22:09)
[2024-02-24 19:35] LABS: Stomatocytes Present
[2024-02-24] MEDS: HEPARIN SODIUM 1,000 UN/ML (10ML VL) IV ONE (22:08)
[2024-02-25 05:23] LABS: Basophils # (A) 0.1 k/uL (0-0.2); Basophils % (A) 0 %; Eosinophils # (A) 0.1 k/uL (0-0.7); Eosinophils % (A) 1 %; HCT 44.2 % (34.0-46.0); HGB 14.3 gm/dL (11.4-16.0); Lymphocytes # (A) 1.3 k/uL (1.0-4.8); Lymphocytes % (A) 12 %; MCH 37.5 pg (25.0-35.0); MCHC 32.4 g/dL (31.0-37.0); Macrocytosis Marked; Mean Platelet Volume 8.2; Monocytes # (A) 0.6 k/uL (0-1.0); Monocytes % (A) 5 %; Neutrophils % (A) 81 %; Platelet Count 200 k/uL (150-450); RBC 3.82 m/uL (3.80-5.40); RDW 14.6 % (11.5-15.5); WBC 11.1 k/uL (3.8-10.6)
[2024-02-25 05:30] LABS: MCV 115.5 fL (80.0-100.0)
[2024-02-25 05:35] LABS: INR 1.2 (<1.2); Prothrombin Time 12.7 sec (10.0-12.5)
[2024-02-25] MEDS: HEPARIN SODIUM 1,000 UN/ML (10ML VL) IV PRN (06:15)
[2024-02-25] MEDS ORDERED: fentaNYL (PF) 50 MCG/ML 5 ML AMP IVP PRN (07:38)
[2024-02-25] MEDS ORDERED: MIDAZOLAM 2 MG/2 ML VIAL IV PRN (07:38)
[2024-02-25] MEDS ORDERED: BENZOCAINE SPRAY 1 CAN TOPICAL PRN (07:38)
--- NOTE | 2024-02-25 08:43 | P.GSCN ---
History of Present Illness Consult date: 02/25/24 Reason for Consult: Aortic valve stenosis Requesting physician: Vahid Apple History of present illness: This is a 63-year-old female who follows outpatient with Dr. Garcia for primary care and Dr. Apple for cardiology. She has a previous medical history of aortic valve stenosis status post bioprosthetic aortic valve replacement in May 2015, paroxysmal atrial fibrillation status post cardioversion x 2 on [facility] outpatient for anticoagulation, childhood asthma, left breast cancer in 2020 status post mastectomy and radiation therapy, current tobacco dependence, family history of lung cancer and premature coronary artery disease. The patient presented to [facility] emergency room on [address] with complaints of progressive shortness of breath as well as palpitations, stated this is how she feels when she goes into atrial fibrillation. EKG was performed in the emergency room demonstrating atrial flutter with rate in the low 100s. Chest x- ray revealed emphysematous changes. Lab work revealed WBC 13.3, hemoglobin 14.9, INR 1.3, creatinine 0.68, magnesium 1.4, lactic acid 2.2, BNP 27,600, troponin 0.042. The patient was admitted for acute heart failure and atrial fibrillation with consultation to cardiology. Yesterday a transthoracic echocardiogram was completed demonstrating mildly decreased left ventricular systolic function with EF 50-55%, no wall motion abnormalities, moderate pulmonary hypertension, severe right atrium dilatation, bioprosthetic aortic valve stenosis with peak velocity 6.1 m/s, peak/mean gradient 148/104 mmHg, aortic valve area 0.4 cm, mild to moderate aortic/mitral/tricuspid regurgitation, no pericardial effusion, and mildly dilated proximal ascending aorta. Due to this finding consultation was placed to Dr. Carbajal for consideration for redo aortic valve replacement. Review of Systems Review of systems was completed and was negative except as noted - Cardiovascular Reports dyspnea on exertion, Reports irregular heart beat, Reports palpitations, Reports shortness of breath - Respiratory Reports cough Past Medical History Past Medical History: Atrial Fibrillation, Asthma, Cancer, Heart Failure, Osteoarthritis (OA), Skin Disorder Additional Past Medical History / Comment(s): Recent unexplained weight loss of 15 lbs over 2 months. Chronic Psoriasis, rash on thighs and ankles. CHILDHOOD ASTHMA. Hx left breast cancer 2020, had surgery and 6 weeks of radiation. Aortic valve stenosis (bicuspid aortic valve prior to original surgery) History of Any Multi-Drug Resistant Organisms: None Reported Past Surgical History: Adenoidectomy, Breast Surgery, Cardiac Valve Replacement, Heart Catheterization, Tonsillectomy Additional Past Surgical History / Comment(s): LAPROSCOPY TO EVAULATE OVARIES, left mastectomy with implant, aortic valve replacement with 21 mm Magna Ease as well as limited myomectomy in May 2015; HANANE and cardioversion December 2023. 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 Father Family Medical History: Coronary Artery Disease (CAD), Hypertension, Myocardial Infarction (CO) Additional Family Medical History / Comment(s): States father diagnosed with coronary disease before 60 years old Medications and Allergies Home Medications Medication Instructions Recorded Confirmed Type Apixaban [Eliquis] 5 mg PO BID 05/07/23 02/22/24 History Atorvastatin [Lipitor] 20 mg PO DAILY 12/06/23 02/22/24 History Cholecalciferol [Vitamin D3 (125 125 mcg PO DAILY 02/22/24 02/22/24 History Mcg = 5000 Iu)] Metoprolol Tartrate [Lopressor] 25 mg PO DAILY 02/22/24 02/22/24 History Multivitamins, Thera [Multivitamin 1 tab PO DAILY 02/22/24 02/22/24 History (formulary)] Vitamin E (Dl,Tocopheryl Acet) 400 unit PO DAILY 02/22/24 02/22/24 History [Vitamin E (400 Iu = 180 mg)] Allergies Allergy/AdvReac Type Severity Reaction Status Date / Time No Known Allergies Allergy Verified 02/22/24 12:56 Surgical - Exam Vital Signs Temp Pulse Resp BP Pulse Ox 97.6 F 125 H 22 118/81 100 02/22/24 09:13 02/22/24 09:13 02/22/24 09:13 02/22/24 09:13 02/22/24 09:13 CONSTITUTIONAL: Awake and alert, appears somewhat comfortable, cooperative, thin, no pain, no acute distress EYES: Pupils equal, round, reactive to light, normal ocular movement ENT: Moist mucous membranes without oral lesions present NECK: No masses, no bruits, trachea midline RESPIRATORY: Lungs sounds diminished in the bases. Respirations even, nonlabored. Currently on 2 L nasal cannula with oxygen saturation 100%. Strong nonproductive cough CARDIOVASCULAR: S1, faint S2 present, loud systolic murmur present. Regular rate and rhythm, sinus rhythm on telemetry. Sternum stable. Palpable peripheral pulses bilaterally. No edema present. No calf pain or tenderness noted. No significant lower extremity varicosities noted GASTROINTESTINAL: Abdomen soft, nontender, nondistended without masses or organomegaly noted. There is no rebound or guarding present. Active bowel sounds present 4 quadrants. GENITOURINARY: Deferred INTEGUMENTARY: Skin is warm and dry NEUROLOGIC: Cranial nerves II through XII intact, normal coordination, no obvious motor or sensory deficits, speech is normal MUSKULOSKELETAL: Able to move all extremities, strength equal bilaterally, n ormal posture PSYCHIATRIC: Alert and oriented to person place and time, appropriate affect, intact judgment and insight CLINICAL FRAILTY SCORE 4 Results - Labs 02/25/24 04:46 02/22/24 11:10 Abnormal Lab Results - Last 24 Hours (Table) 02/24/24 02/24/24 02/24/24 Range/Units 11:00 18:03 18:03 WBC 13.3 H (3.8-10.6) k/uL MCV 116.0 H (80.0-100.0) fL MCH 38.5 H (25.0-35.0) pg Neutrophils # 11.1 H (1.3-7.7) k/uL Macrocytosis Marked A PT 14.2 H (10.0-12.5) sec INR 1.3 H (<1.2) APTT (22.0-30.0) sec Urine Appearance Turbid H (Clear) Urine Protein 2+ H (Negative) Urine Ketones Trace H (Negative) Urine Blood Large H (Negative) Ur Leukocyte Esterase Large H (Negative) Urine RBC 143 H (0-5) /hpf Urine WBC >182 H (0-5) /hpf Urine WBC Clumps Many H (None) /hpf Urine Bacteria Occasional H (None) /hpf Hyaline Casts 20 H (0-2) /lpf Urine Mucus Occasional H (None) /hpf 02/25/24 02/25/24 02/25/24 Range/Units 04:46 04:46 04:46 WBC 11.1 H (3.8-10.6) k/uL MCV 115.5 H (80.0-100.0) fL MCH 37.5 H (25.0-35.0) pg Neutrophils # 9.0 H (1.3-7.7) k/uL Macrocytosis Marked A PT 12.7 H (10.0-12.5) sec INR 1.2 H (<1.2) APTT 37.6 H (22.0-30.0) sec Urine Appearance (Clear) Urine Protein (Negative) Urine Ketones (Negative) Urine Blood (Negative) Ur Leukocyte Esterase (Negative) Urine RBC (0-5) /hpf Urine WBC (0-5) /hpf Urine WBC Clumps (None) /hpf Urine Bacteria (None) /hpf Hyaline Casts (0-2) /lpf Urine Mucus (None) /hpf - Imaging Chest x-ray: report reviewed, image reviewed EKG: image reviewed Additional studies: Echocardiogram results reviewed with Dr. Carbajal Assessment and Plan Assessment: Acute heart failure with preserved ejection fraction Paroxysmal atrial flutter present on admission, currently sinus Severe aortic valve stenosis of previous bioprosthetic aortic valve, peak velocity 6.1 m/s, peak/mean gradient 148/104 mmHg, aortic valve area 0.4 cm on TTE Shortness of breath secondary to above Suprapubic pain, urinalysis positive for large leukocyte esterase, greater than 182 WBCs, negative nitrites, treated with Rocephin History of bicuspid aortic valve stenosis status post bioprosthetic aortic valve replacement in May 2015, 21 mm Magna Ease aortic valve Paroxysmal atrial fibrillation status post cardioversion x 2 on Eliquis outpatient for anticoagulation, last dose 02/23 AM Childhood asthma Left breast cancer in 2020 status post mastectomy and radiation therapy Current tobacco dependence Family history of lung cancer and premature coronary artery disease Plan: The patient was seen and examined sitting up in bed on the cardiac stepdown unit in no acute distress although she does appear a bit short of breath. States when she came in she could not walk more than a few feet without debilitating shortness of breath, states that she knew she was back in atrial fibrillation because this is how she felt every time she was in A-fib. Denies any chest pain, syncope. Currently on IV heparin. The case was discussed in detail with Dr. Carbjaal. Will consider redo aortic valve replacement if patient is an appropriate candidate after she has been optimized medically and has undergone preoperative testing including transesophageal echocardiogram as well as heart catheterization. Patient would also need to be off Eliquis for a minimum of 3 days prior to any surgical intervention. Apparently the plan is for transesophageal echocardiogram today. Will review results when completed. UTI being treated with Rocephin, culture results pending. Continued medical management per internal medicine, cardiology. More recommendations to follow. Thank you for this consult, we will continue to follow along with you and make further recommendations as appropriate. I have personally seen and examined the patient, performed the documentation and the assessment and plan as written. Number of minutes spent on the visit: 30. LAUREL Roman
[2024-02-25 08:47] LABS: African American GFR (CKD) >90 (>60 ml/min/1.73 sqM); Anion Gap 3 mmol/L; Blood Urea Nitrogen 10 mg/dL (7-17); Calcium 8.9 mg/dL (8.4-10.2); Carbon Dioxide 38 mmol/L (22-30); Chloride 95 mmol/L (98-107); Glucose 85 mg/dL (74-99); Non-African American GFR(CKD) >90 (>60 ml/min/1.73 sqM); Potassium 3.2 mmol/L (3.5-5.1); Sodium 136 mmol/L (137-145)
[2024-02-25] MEDS: BENZOCAINE SPRAY 1 EACH MM ONE ×2 (09:02→09:06)
[2024-02-25] MEDS: fentaNYL (PF) 50 MCG/ML 2 ML AMP IVP ONE ×2 (09:08→12:50)
[2024-02-25] MEDS: FUROSEMIDE 10 MG/ML 4 ML VIAL IVP ONE (09:34)
[2024-02-25] MEDS: METOPROLOL SUCCINATE (ER) 25 MG TAB.ER.24H PO SCH (10:30)
--- NOTE | 2024-02-25 10:31 | ECHOT ---
TRANSESOPHAGEAL ECHOCARDIOGRAM HISTORY OF PRESENT ILLNESS: This is a 63-year-old lady with history of aortic stenosis, was admitted to hospital with pulmonary edema, was in atrial flutter with uncontrolled ventricular rate. An echocardiogram done on this admission revealed severe prosthetic valve stenosis with peak gradient of 140 mm and mean gradient of 104 mm with moderate aortic regurgitation. The patient was advised to undergo transesophageal echo for further evaluation of the prosthetic valve and CT Surgery had been consulted. PROCEDURE NOTE: After obtaining informed consent, transesophageal echocardiogram was performed in left lateral position using an Omniplane probe. Local and IV sedation were obtained using xylocaine spray and 25 mcg of fentanyl. The patient tolerated the procedure well without any obvious immediate complications. Total sedation time was 10 minutes. FINDINGS: 1. Aortic valve: There is a bioprosthetic valve in aortic position with thickened and calcified leaflets with restricted leaflet mobility with moderate to severe aortic regurgitation which is both valvular and perivalvular. There is severe aortic stenosis with a valve area of around 0.4 cm2. Ascending aorta appears aneurysmally dilated measuring 4 cm. Mitral valve is anatomically normal. There is mild-to- moderate central mitral regurgitation noted. Left atrium appears enlarged. Right atrium and right ventricle seen within normal limits. There is mild tricuspid regurgitation noted. 2. Interatrial septum: There is no evidence of [id number]-gc-[id number] shunt by color-flow Doppler or [id number]-yp-[id number] shunt by agitated saline contrast study. CONCLUSIONS: 1. 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 2. Ascending aortic aneurysm. PLAN: Cardiothoracic Surgery has already been consulted. The patient needs aortic valve replacement. MMODL / IJN: [id number] /
--- NOTE | 2024-02-25 12:46 | P.CRDCN ---
History of Present Illness History of present illness: INTERVENTIONAL CARDIOLOGY CONSULTATION HISTORY OF PRESENTING ILLNESS This is a pleasant 63-year-old with past medical history significant for severe bicuspid aortic stenosis with mild ascending aortic aneurysm status post 21 mm magnate ease bioprosthetic aortic valve replacement in 2015. She has been having intermittent episodes of atrial flutter with RVR and shortness breath. Mostly this started back in December and required cardioversion in the past. Since December however she has been having increased dyspnea with minimal exertion. She states she cannot walk around the house without becoming short of breath. Symptoms progressed over last few days. She therefore presented to emergency department with echocardiogram performed showing severe bioprosthetic stenosis with EF 50-55% and maximum velocity 6.1 m per sec and a mean gradient 104 mmHg. She is still having symptoms despite being in normal sinus rhythm. She underwent HANANE which shows planimetry approximally 0.4 cm by planimetry and mild to moderate aortic insufficiency. Her prior coronary angiography from was reviewed with relatively normal coronary arteries. She is somewhat small in stature and does have some smaller caliber femoral arteries however appear to be approximately 4.5 to 5 mm. She has been attempted to be diuresed however has had decrease in blood pressures. Blood pressures dropping into the 70s. She admits she does not feel comfortable being able to go home and manage any of her activities of daily living. REVIEW OF SYSTEMS At the time of my exam: CONSTITUTIONAL: Denies fever or chills. CARDIOVASCULAR: Mild chest pain with episodes of Afib, + shortness of breath, no orthopnea, PND or palpitations. RESPIRATORY: Denies cough. GASTROINTESTINAL: Denies abdominal pain, diarrhea, constipation, nausea or vomiting. MUSCULOSKELETAL: Denies myalgias. NEUROLOGIC: Denies numbness, tingling or weakness. ENDOCRINE: Denies fatigue, weight change, polydipsia or polyurina. GENITOURINARY: Denies burning, hematuria or urgency with micturation. HEMATOLOGIC: Denies history of anemia or bleeding. PHYSICAL EXAMINATION Vital signs reviewed. CONSTITUTIONAL: No apparent distress. HEENT: Head is normocephalic. Pupils are equal, round. Sclerae anicteric. Mucous membranes of the mouth are moist. No JVD. No carotid bruit. CHEST EXAMINATION: Lungs are clear to auscultation. No chest wall tenderness is noted on palpation or with deep breathing. HEART EXAMINATION: Regular rate and rhythm. Normal S1, no S2 heard. +3/6 systolic murmur, gallops or rub. ABDOMEN: Soft, nontender. Positive bowel sounds. EXTREMITIES: 2+ peripheral pulses, no lower extremity edema and no calf tenderness. NEUROLOGIC EXAMINATION: Patient is awake, alert and oriented x3. ASSESSMENT Severe symptomatic bioprosthetic aortic valve stenosis, [place] [employer] class IV symptoms Acute on chronic diastolic heart failure History of bicuspid aortic valve status post 21 mm Magna Ease 2015 Normal coronary arteries 2016 Atrial flutter currently sinus rhythm PLAN Patient does have critical aortic stenosis. She is symptomatic and not improving significantly with diuresis with dropping of blood pressures. Discussed recommendations for aortic valve replacement and patient understanding. Patient may be better served with surgical aortic valve replacement given her age and fairly rapid progression of aortic stenosis with only 8 years and smaller diameter valves to begin with. Patient however still significantly symptomatic and with critical aortic stenosis discussed balloon aortic valvuloplasty. Risks and benefits discussed with patient including risk of stroke, vascular injury, bleeding, infection, ID, worsening aortic insufficency. Patient understanding and willing to proceed. Schedule patient for balloon aortic valve plasty. Past Medical History Past Medical History: Atrial Fibrillation, Asthma, Cancer, Heart Failure, Osteoarthritis (OA), Skin Disorder Additional Past Medical History / Comment(s): Recent unexplained weight loss of 15 lbs over 2 months. Chronic Psoriasis, rash on thighs and ankles. CHILDHOOD ASTHMA. Hx left breast cancer 2020, had surgery and 6 weeks of radiation. Aortic valve stenosis (bicuspid aortic valve prior to original surgery) History of Any Multi-Drug Resistant Organisms: None Reported Past Surgical History: Adenoidectomy, Breast Surgery, Cardiac Valve Replacement, Heart Catheterization, Tonsillectomy Additional Past Surgical History / Comment(s): LAPROSCOPY TO EVAULATE OVARIES, left mastectomy with implant, aortic valve replacement with 21 mm Magna Ease as well as limited myomectomy in May 2015; HANANE and cardioversion December 2023. 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 Father Family Medical History: Coronary Artery Disease (CAD), Hypertension, Myocardial Infarction (ID) Additional Family Medical History / Comment(s): States father diagnosed with coronary disease before 60 years old Medications and Allergies Home Medications Medication Instructions Recorded Confirmed Type Apixaban [Eliquis] 5 mg PO BID 05/07/23 02/22/24 History Atorvastatin [Lipitor] 20 mg PO DAILY 12/06/23 02/22/24 History Cholecalciferol [Vitamin D3 (125 125 mcg PO DAILY 02/22/24 02/22/24 History Mcg = 5000 Iu)] Metoprolol Tartrate [Lopressor] 25 mg PO DAILY 02/22/24 02/22/24 History Multivitamins, Thera [Multivitamin 1 tab PO DAILY 02/22/24 02/22/24 History (formulary)] Vitamin E (Dl,Tocopheryl Acet) 400 unit PO DAILY 02/22/24 02/22/24 History [Vitamin E (400 Iu = 180 mg)] Allergies Allergy/AdvReac Type Severity Reaction Status Date / Time No Known Allergies Allergy Verified 02/22/24 12:56 Physical Exam Vitals: Vital Signs Temp Pulse Pulse Resp BP BP Pulse Ox 02/25/24 09:20 86 20 95/60 99 02/25/24 09:15 82 16 95/57 99 02/25/24 09:10 82 16 106/58 98 02/25/24 09:05 82 16 90/52 100 02/25/24 09:00 80 18 89/59 100 02/25/24 08:55 78 18 94/59 100 02/25/24 08:50 82 12 101/65 100 02/25/24 08:00 97.6 F 86 18 96/54 98 02/25/24 04:00 97.9 F 73 16 95/60 96 02/25/24 01:32 86 81 16 02/24/24 23:22 98.0 F 81 16 98/66 100 02/24/24 19:54 97.7 F 86 83 16 98/66 100 02/24/24 16:00 97.4 F L 86 18 76/51 83/55 96 02/24/24 14:00 78 18 Intake and Output 02/24/24 02/25/24 02/25/24 22:59 06:59 14:59 Intake Total 49.483 Output Total 300 Balance -300 49.483 Intake: Intake, IV Titration 49.483 Amount Heparin Sod,Pork in 0.45% 49.483 NaCl 25,000 unit In 0.45 % NaCl 1 250ml.bag @ 12 UNITS/KG/HR 6.084 mls/hr IV .Q24H [facility] Rx#: [id number] Output: Urine 300 Other: Voiding Method Toilet Toilet Toilet Bedside Commode Bedside Commode Bedside Commode # Voids 1 Weight 49.3 kg Results 02/25/24 04:46 02/25/24 07:35 Coagulation 02/24/24 02/25/24 02/25/24 Range/Units 18:03 04:46 04:46 PT 14.2 H 12.7 H (10.0-12.5) sec APTT 26.0 37.6 H (22.0-30.0) sec 02/25/24 Range/Units 11:43 PT (10.0-12.5) sec APTT 69.6 H (22.0-30.0) sec CBC 02/24/24 02/25/24 Range/Units 18:03 04:46 WBC 13.3 H 11.1 H (3.8-10.6) k/uL RBC 3.95 3.82 (3.80-5.40) m/uL Hgb 15.2 14.3 (11.4-16.0) gm/dL Hct 45.8 44.2 (34.0-46.0) % Plt Count 200 200 (150-450) k/uL Comprehensive Metabolic Panel 02/25/24 Range/Units 07:35 Sodium 136 L (137-145) mmol/L Potassium 3.2 L (3.5-5.1) mmol/L Chloride 95 L (98-107) mmol/L Carbon Dioxide 38 H (22-30) mmol/L BUN 10 (7-17) mg/dL Creatinine 0.71 (0.52-1.04) mg/dL Glucose 85 (74-99) mg/dL Calcium 8.9 (8.4-10.2) mg/dL Current Medications Generic Name Dose Route Start Last Admin Trade Name Freq PRN Reason Stop Dose Admin Alprazolam 0.25 mg 02/23/24 11:47 02/25/24 03:55 Alprazolam 0.25 Mg Tab PO 0.25 mg BID PRN Administration Anxiety Amiodarone HCl 400 mg 02/23/24 11:45 02/25/24 10:30 Amiodarone 200 Mg Tab PO 400 mg BID HARJIT Administration Atorvastatin Calcium 20 mg 02/23/24 09:00 02/25/24 10:30 Atorvastatin 20 Mg Tab PO 20 mg DAILY HARJIT Administration Benzocaine 1 spray 02/25/24 07:38 Benzocaine [place] 1 Can TOPICAL 02/26/24 07:37 TID PRN Skin Irritation Cholecalciferol 125 mcg 02/23/24 09:00 02/25/24 10:30 Cholecalciferol 125 Mcg (5000 Iu) Tablet PO 125 mcg DAILY HARJIT Administration Fentanyl Citrate 50 mcg 02/25/24 07:38 Fentanyl (Pf) 50 Mcg/Ml 5 Ml Amp IVP 02/26/24 01:38 ONCE PRN Pre-Op Heparin Sodium (Porcine) 0 unit 02/24/24 17:11 02/25/24 06:15 Heparin Sodium 1,000 Un/Ml (10ml Vl) IV 1,267.5 unit PER PROTOCOL PRN Administration Low PTT Protocol Ceftriaxone Sodium 1 gm/ 50 mls @ 100 mls/hr 02/24/24 13:59 02/25/24 10:31 Sodium Chloride IVPB 100 mls/hr Q24HR HARJIT Administration Protocol Heparin Sodium/Sodium Chloride 250 mls @ 6.084 mls/hr 02/24/24 22:15 02/25/24 06:17 25,000 unit/ Sodium Chloride IV 14 units/kg/hr .Q24H HARJIT 7.098 mls/hr Titration Protocol 12 UNITS/KG/HR Metoprolol Succinate 25 mg 02/25/24 09:00 02/25/24 10:30 Metoprolol Succinate (Er) 25 Mg Tab.Er.24h PO 25 mg DAILY HARJIT Administration Midazolam HCl 1 mg 02/25/24 07:38 Midazolam 2 Mg/2 Ml Vial IV 02/26/24 01:38 ONCE PRN Pre-Op Multivitamins 1 each 02/23/24 09:00 02/25/24 10:30 Multivitamins, Thera 1 Each Tab PO 1 each DAILY HRAJIT Administration Vitamin E 400 unit 02/23/24 09:00 02/25/24 10:35 Vitamin E (Dl,Tocopheryl Acet) 400 Unit (180 Mg) Cap PO 400 unit DAILY HARJIT Administration Intake and Output 02/24/24 02/25/24 02/25/24 22:59 06:59 14:59 Intake Total 49.483 Output Total 300 Balance -300 49.483 Intake: Intake, IV Titration 49.483 Amount Heparin Sod,Pork in 0.45% 49.483 NaCl 25,000 unit In 0.45 % NaCl 1 250ml.bag @ 12 UNITS/KG/HR 6.084 mls/hr IV .Q24H [facility]JIT Rx#: [id number] Output: Urine 300 Other: Voiding Method Toilet Toilet Toilet Bedside Commode Bedside Commode Bedside Commode # Voids 1 Weight 49.3 kg 02/25/24 04:46 02/25/24 07:35
[2024-02-25] MEDS: MIDAZOLAM 2 MG/2 ML VIAL IVP ONE (12:50)
[2024-02-25] MEDS: LIDOCAINE 1% INJ 10MG/ML (20 ML MDV) SQ ONE (12:51)
[2024-02-25] MEDS: HEPARIN SODIUM,PORCINE 10,000 UNIT in SODIUM CHLORIDE 0.9% 1,000 ML IRRIGATION ONE (12:59)
[2024-02-25] MEDS: SODIUM CHLORIDE 0.9% 1,000 ML IV ONE (12:59)
[2024-02-25] MEDS: HEPARIN SODIUM,PORCINE (1 ML) 2,500 UNIT in SODIUM CHLORIDE 0.9% 250 ML IRRIGATION ONE (12:59)
[2024-02-25] MEDS: HEPARIN SODIUM 1,000 UN/ML (10ML VL) IV ONE (13:10)
[2024-02-25] MEDS: PROTAMINE SULFATE 10 MG/ML 5 ML VIAL IV ONE (13:30)
[2024-02-25] MEDS: IOPAMIDOL-370 100ML BTL INJ ONE (13:30)
--- NOTE | 2024-02-25 13:58 | P.PCN ---
Description of Procedure: Balloon aortic vavluloplasty report PROCEDURE PERFORMED: 1. Balloon aortic valvuloplasty with an 18mm True Balloon 2. Ultrasound guided access and repair of left femoral artery access site by Perclose closure device. 3. Placement of temporary pacemaker wire. 4. Aortic root angiography INDICATIONS: 1. 64 year-old with a history of severe symptomatic bioprosthetic aortic valve stenosis. PERFORMING PHYSICIANS: 1. Scot Elaine DO Interventional Cardiology SEDATION: General anesthesia provided by anesthesia, see separate note APPROACH: Left femoral artery via percutaneous approach PROCEDURE DESCRIPTION: Risks, benefits, and alternatives of the procedure had been explained to the patient who understood the risks and agreed to proceed. After consents were obtained, patient was brought to the cardiac laborer prestressed concrete and conscious sedation was supplued by myself under direct supervision for 48 minutes. Once full body sterile prep was performed, right venous access was obtained and a temporary pacemaker was placed in the right ventricle. Pacing threshholds were checked and deemed appropriate. Next the left femoral artery was accessed using a modified Seldinger technique, ultrasound guidance and micropuncture technique. A 6 Urdu sheath was placed in the left femoral artery. Femoral angiogram was done showing access in the common femoral artery and a 6Fr sheath was placed. Next preclose technique was performed using 1 Perclose. Next a 0.035 Safari wire was placed in the Aorta via a pigtail catheter. Over that the arteriotomy was serially dilated and a 12 Fr [place] sheath was placed. Next a 6F- AL1 catheter was advanced over a wire to the aortic root. A straight wire was advanced through the catheter and used to cross the severely stenotic valve. The AL1 was then exchanged for a 6Fr pigtail catheter and pressure measurements were obtained. The 0.035 Safari wire was then positioned in the apex. Next an 18 mm True balloon was advanced. Balloon aortic valvuloplasty was performed with an 18mm True balloon with rapid pacing. Repeat pressure measurements were obtained with mean gradient pre 95mmHg and going to 34mmHg. Aortic root angiogram showed 1+ aortic insufficiency. The preclose Perclose was then deployed in the left femoral artery and hemostasis was achieved. The temporary venous pacemaker was pulled and the venous sheath was pulled with hemostasis achieved. The patient was then transported to the post op area in hemodynamically stable condition, requiring no pressor support. COMPLICATIONS: None CONCLUSION: 1. Balloon aortic valvuloplasty of bioprosthetic valve with an 18mm True balloon 2. Placement of temporary pacemaker wire 3. Critical aortic stenosis with mean gradient 95mmHg (peak to peak 134) going to 34mmHg and peak to peak 37mmHg post BAV RECOMMENDATIONS: The patient will be monitored for hemodynamic and electrical stability.
[2024-02-25] MEDS: ALPRAZolam 0.25 MG TAB PO PRN (14:36)
[2024-02-25 15:36] LABS: African American GFR (CKD) >90 (>60 ml/min/1.73 sqM); Blood Urea Nitrogen 9 mg/dL (7-17); Calcium 8.4 mg/dL (8.4-10.2); Chloride 94 mmol/L (98-107); Glucose 82 mg/dL (74-99); Non-African American GFR(CKD) >90 (>60 ml/min/1.73 sqM); Sodium 137 mmol/L (137-145)
[2024-02-25 15:42] LABS: Anion Gap 7 mmol/L; Carbon Dioxide 36 mmol/L (22-30)
[2024-02-25] MEDS ORDERED: Potassium Replacement Protocol 1 EACH MISC MISCELLANE PRN (16:30)
[2024-02-25] MEDS: POTASSIUM CHLORIDE ER 20 MEQ TAB.ER PO SCH (17:33)
[2024-02-25] MEDS: SODIUM CHLORIDE 0.9% 1,000 ML IV SCH (18:10)
[2024-02-25 19:34] LABS: Basophils % (A) 0 %; Eosinophils # (A) 0.1 k/uL (0-0.7); Eosinophils % (A) 1 %; HCT 45.2 % (34.0-46.0); HGB 14.2 gm/dL (11.4-16.0); Hypochromasia Slight; Lymphocytes % (A) 12 %; MCH 36.7 pg (25.0-35.0); MCHC 31.5 g/dL (31.0-37.0); MCV 116.7 fL (80.0-100.0); Macrocytosis Marked; Mean Platelet Volume 8.3; Monocytes # (A) 0.5 k/uL (0-1.0); Monocytes % (A) 5 %; Neutrophils # (A) 7.2 k/uL (1.3-7.7); Neutrophils % (A) 81 %; Platelet Count 203 k/uL (150-450); RBC 3.87 m/uL (3.80-5.40); RDW 14.7 % (11.5-15.5); WBC 8.9 k/uL (3.8-10.6)
--- NOTE | 2024-02-25 21:58 | PN ---
PROGRESS NOTE I performed a transesophageal echo on Ivis this morning. She has severe prosthetic valve stenosis and I consulted Cardiothoracic Surgery. However, the patient has UTI and is currently being treated with antibiotics. The patient is not tolerating her prosthetic valve stenosis well. She has had episodes of hypotension with blood pressures dropping into the 70s systolic, due to which her diuretics had to be held and with diuretics on hold, she has shortness of breath and cough suggestive of pulmonary congestion. I gave her a dose of Lasix and while redo aortic valve replaced, aortic valve surgery is the ultimate fix for her problem. We probably need to stabilize her with balloon valvuloplasty as a bridge procedure in the meantime, as I am concerned that episodes of hypotension with severe aortic stent prosthetic valve stenosis with mean gradients close to 100 could be very detrimental hemodynamically. I spoke to Dr. Elaine, the vocational instructor who does structural heart disease work including TAVR to see if the patient would benefit from balloon valvuloplasty as a temporizing measure. The patient has aortic regurgitation and this might get worse with the procedure. He reviewed HANANE and we will talk to the patient and hopefully can do a balloon valvuloplasty while we are waiting for more permanent fix for her problem. I explained these issues at length with the patient. She understands and is in agreement with the plans. MMODL / IJN: [id number] /
--- NOTE | 2024-02-26 09:05 | P.PN ---
Subjective Progress Note Date: 02/26/24 Principal diagnosis: Acute heart failure with preserved ejection fraction, paroxysmal atrial flutter present on admission, severe aortic valve stenosis of previous bioprosthetic ao rtic valve, UTI. History of bicuspid aortic valve stenosis status post bioprosthetic aortic valve replacement in May 2015, 21 mm Magna Ease aortic valve, paroxysmal atrial fibrillation status post cardioversion x 2 on [facility] outpatient for anticoagulation, , childhood asthma, left breast cancer in 2020 status post mastectomy with letrozole and radiation therapy, current tobacco dependence, family history of lung cancer and premature coronary artery disease POD #1 balloon aortic valvuloplasty The patient was seen and examined this morning sitting up in bed on the cardiac stepdown unit in no acute distress. States she feels better after valvuloplasty completed yesterday. Currently on room air, hemodynamically stable. Discussion regarding treatment options took place between Dr. Carbajal and Dr. Apple. Discussed this morning with the patient that she will still need aortic valve replacement after she has been medically optimized and preoperative testing has been completed. She does still need heart catheterization, chest CT, carotid Dopplers. She was also counseled on complete smoking cessation. All questions answered. Objective - Vital Signs Vital signs: Vital Signs Temp 98.1 F 02/26/24 08:09 Pulse 76 02/26/24 08:09 Resp 16 02/26/24 08:09 BP 100/64 02/26/24 08:09 Pulse Ox 95 02/26/24 08:09 FiO2 Intake & Output 02/25/24 02/26/24 02/26/24 18:59 06:59 18:59 Intake Total 237.028 64.3 Output Total 1400 Balance 237.028 -1335.7 Weight 49.4 kg Intake: IV 200 10 Invasive Line 2 10 Intake, IV Titration 37.028 54.3 Amount Heparin Sod,Pork in 0.45% 37.028 54.3 NaCl 25,000 unit In 0.45 % NaCl 1 250ml.bag @ 12 UNITS/KG/HR 6.084 mls/hr IV .Q24H [facility] Rx#: [id number] Output: Urine 1400 Other: Voiding Method Toilet Toilet Toilet Bedside Commode Bedside Commode Bedside Commode - Exam CONSTITUTIONAL: Appears comfortable, cooperative, no acute distress RESPIRATORY: Lungs sounds diminished bilaterally. Respirations even, nonla bored. Currently on room air with oxygen saturation 95% CARDIOVASCULAR: S1, diminished S2 present, systolic murmur present. Regular rate and rhythm, sinus rhythm on telemetry. Sternum stable. Palpable peripheral pulses bilaterally. No edema present GASTROINTESTINAL: Abdomen soft, nontender, nondistended. Active bowel sounds present 4 quadrants. Tolerating diet GENITOURINARY: Continues to void INTEGUMENTARY: Skin is warm and dry NEUROLOGIC: Cranial nerves II through XII intact MUSKULOSKELETAL: Able to move all extremities, strength equal bilaterally, gait normal PSYCHIATRIC: Alert and oriented to person place and time, appropriate affect, intact judgment and insight - Allied health notes Allied health notes reviewed: nursing - Labs CBC & Chem 7: 02/25/24 18:39 02/25/24 14:53 Labs: Abnormal Lab Results - Last 24 Hours (Table) 02/25/24 02/25/24 02/25/24 Range/Units 11:43 14:53 18:39 MCV 116.7 H (80.0-100.0) fL MCH 36.7 H (25.0-35.0) pg Macrocytosis Marked A APTT 69.6 H (22.0-30.0) sec Potassium 3.0 L (3.5-5.1) mmol/L Chloride 94 L (98-107) mmol/L Carbon Dioxide 36 H (22-30) mmol/L 02/26/24 Range/Units 00:40 MCV (80.0-100.0) fL MCH (25.0-35.0) pg Macrocytosis APTT 36.9 H (22.0-30.0) sec Potassium (3.5-5.1) mmol/L Chloride (98-107) mmol/L Carbon Dioxide (22-30) mmol/L Microbiology - Last 24 Hours (Table) 02/24/24 11:00 Urine Culture - Preliminary Urine,Voided Gram Neg Bacilli Assessment and Plan Assessment: Acute heart failure with preserved ejection fraction Paroxysmal atrial flutter present on admission, currently sinus Severe aortic valve stenosis of previous bioprosthetic aortic valve, peak velocity 6.1 m/s, peak/mean gradient 148/104 mmHg, aortic valve area 0.4 cm on TTE, status post balloon valvuloplasty Shortness of breath secondary to above Suprapubic pain, urinalysis positive for gram-negative bacilli, treated with Rocephin History of bicuspid aortic valve stenosis status post bioprosthetic aortic valve replacement in May 2015, 21 mm Magna Ease aortic valve Paroxysmal atrial fibrillation status post cardioversion x 2 on [facility] outpatient for anticoagulation, last dose 02/23 AM Childhood asthma Left breast cancer in 2020 status post mastectomy with letrozole and radiation therapy Current tobacco dependence Family history of lung cancer and premature coronary artery disease Plan: Continue current medical therapy, continue medical optimization Patient will still need redo aortic valve replacement, needs preoperative testing including heart catheterization, CT scan of the chest, carotid Dopplers, pulmonary function test Smoking cessation counseling and education provided, patient encouraged to quit smoking completely UTI treatment per Dr. Garcia If patient is still in the hospital on Wednesday Dr. Carbajal will meet with her, otherwise may schedule outpatient follow-up appointment with Dr. Carbajal Continued medical management per internal medicine, cardiology More recommendations to follow
--- NOTE | 2024-02-26 09:28 | XR ---
EXAMINATION TYPE: XR chest 1V portable DATE OF EXAM: 02/26/2024 9:11 AM COMPARISON: Chest radiographs from 02/22/2024 CLINICAL INDICATION: Female, 63 years old with history of chf; [facility] TECHNIQUE: XR chest 1V portable Frontal view of the chest. FINDINGS: Lungs/Pleura: There is no evidence of pleural effusion, focal consolidation, or pneumothorax. Pulmonary vascularity: Unremarkable. Heart/mediastinum: Cardiomediastinal silhouette is unremarkable. Musculoskeletal: No acute osseous pathology. Other findings: Asymmetric increased density in the left breast IMPRESSION: No evidence for congestive heart failure, No acute cardiopulmonary disease/process. Asymmetric increased density of the left breast correlate with mammography and physical exam [facility], , 02/26/2024 9:25 AM
[2024-02-26] MEDS: APIXABAN 5 MG TAB PO SCH (09:58)
[2024-02-26] MEDS: FUROSEMIDE 20 MG TAB PO SCH (09:58)
--- NOTE | 2024-02-26 13:29 | P.PN ---
Subjective Progress Note Date: 02/26/24 Principal diagnosis: Postop day 1 balloon valvuloplasty Patient is awake alert oriented 3 vital signs are stable patient is Awake alert oriented x 3 sitting up in bed no acute distress stating feeling much better breathing better, currently on room air hemodynamically stable, cardiovascular surgery note reviewed and noted discussed at length the need to quit smoking she has been aware of this for some time Objective - Vital Signs Vital signs: Vital Signs Temp 97.9 F 02/26/24 11:18 Pulse 70 02/26/24 11:18 Resp 16 02/26/24 11:18 BP 122/85 02/26/24 11:18 Pulse Ox 98 02/26/24 11:18 FiO2 Intake & Output 02/25/24 02/26/24 02/26/24 18:59 06:59 18:59 Intake Total 237.028 64.3 112.597 Output Total 1400 200 Balance 237.028 -1335.7 -87.403 Weight 49.4 kg Intake: IV 200 10 Invasive Line 2 10 Intake, IV Titration 37.028 54.3 112.597 Amount Heparin Sod,Pork in 0.45% 37.028 54.3 62.597 NaCl 25,000 unit In 0.45 % NaCl 1 250ml.bag @ 12 UNITS/KG/HR 6.084 mls/hr IV .Q24H HARJIT Rx#: [id number] cefTRIAXone 1 gm In 50 Sodium Chloride 0.9% 50 ml @ 100 mls/hr IVPB Q24HR [facility]JIT Rx#:[id number] Output: Urine 1400 200 Other: Voiding Method Toilet Toilet Toilet Bedside Commode Bedside Commode Bedside Commode # Voids 1 - Exam General: [Patient awake, alert and oriented times 3. Patient in no acute distress.] HEENT: [PERRL. EOMI. No pharyngeal erythema or exudate.] Neck: [No adenopathy.] Cardiac: [Heart regular in rate and rhythm. No S3. No S4. No clicks, rubs. No murmur.] Lungs: [Clear to auscultation bilaterally.Very fine bibasilar crackles Abdomen: [No mass. No organomegaly. Bowel sounds presnt and normoactive in all 4 quadrants.] Extremes: [No edema no cyanosis no claudication normal pulses] Musculoskeletal: [No joint erythema, edema or tenderness.] suprapubic pelvic pain Skin: [No rash.] Neurologic: [No lateralizing deficits. CN II - XII grossly intact.] Lymphatic: [No adenopathy.] - Labs CBC & Chem 7: 02/25/24 18:39 02/25/24 14:53 Labs: Abnormal Lab Results - Last 24 Hours (Table) 02/25/24 02/25/24 02/26/24 Range/Units 14:53 18:39 00:40 MCV 116.7 H (80.0-100.0) fL MCH 36.7 H (25.0-35.0) pg Macrocytosis Marked A APTT 36.9 H (22.0-30.0) sec Potassium 3.0 L (3.5-5.1) mmol/L Chloride 94 L (98-107) mmol/L Carbon Dioxide 36 H (22-30) mmol/L 02/26/24 Range/Units 10:11 MCV (80.0-100.0) fL MCH (25.0-35.0) pg Macrocytosis APTT 38.7 H (22.0-30.0) sec Potassium (3.5-5.1) mmol/L Chloride (98-107) mmol/L Carbon Dioxide (22-30) mmol/L Microbiology - Last 24 Hours (Table) 02/25/24 07:42 Blood Culture - Preliminary Blood 02/25/24 07:35 Blood Culture - Preliminary Blood 02/24/24 11:00 Urine Culture - Preliminary Urine,Voided Gram Neg Bacilli Assessment and Plan (1) Acute diastolic congestive heart failure due to valvular disease Current Visit: Yes Status: Acute Code(s): I50.31 - ACUTE DIASTOLIC (CONGESTIVE) HEART FAILURE; I38 - ENDOCARDITIS, VALVE UNSPECIFIED SNOMED Code (s): 10082947 (2) Atrial fibrillation and flutter Current Visit: Yes Status: Acute Code(s): I48.91 - UNSPECIFIED ATRIAL FIBRILLATION; I48.92 - UNSPECIFIED ATRIAL FLUTTER SNOMED Code(s): 48864923 (3) Acute pulmonary edema Current Visit: Yes Status: Acute Code(s): J81.0 - ACUTE PULMONARY EDEMA SNOMED Code(s): 41175061 (4) Atrial flutter Current Visit: No Status: Acute Code(s): I48.92 - UNSPECIFIED ATRIAL FLUTTER SNOMED Code(s): 2959384 (5) correction current use of anticoagulant Current Visit: No Status: Acute Code(s): Z79.01 - SPEAKER MOUNTER (CURRENT) USE OF ANTICOAGULANTS SNOMED Code(s): 069907713 (6) Troponin level elevated Current Visit: No Status: Acute Code(s): R79.89 - OTHER SPECIFIED ABNORMAL FINDINGS OF BLOOD CHEMISTRY SNOMED Code(s): 885891054 Plan: recent urinary tract infection started Rocephin 1 g every 24 hours waiting on Final urinary culture reports Patient is breathing better Status post balloon valvuloplasty postop day #1 Continue anticoagulation We'll follow closely Time with Patient: Greater than 30
--- NOTE | 2024-02-27 08:03 | P.PN ---
Subjective Progress Note Date: 02/27/24 Principal diagnosis: Acute heart failure with preserved ejection fraction, paroxysmal atrial flutter present on admission, severe aortic valve stenosis of previous bioprosthetic ao rtic valve, UTI. History of bicuspid aortic valve stenosis status post bioprosthetic aortic valve replacement in May 2015, 21 mm Magna Ease aortic valve, paroxysmal atrial fibrillation status post cardioversion x 2 on [facility] outpatient for anticoagulation, , childhood asthma, left breast cancer in 2020 status post mastectomy with letrozole and radiation therapy, current tobacco dependence, family history of lung cancer and premature coronary artery disease POD #2 balloon aortic valvuloplasty The patient was seen and examined this morning laying in bed on the cardiac stepdown unit in no acute distress. Currently on room air, hemodynamically stable. Denies pain or shortness of breath at this time. Will plan for elective aortic valve replacement after patient has been medically maximized and preoperative testing has been completed. She does still need heart catheterization; bedside spirometry and chest CT which have been ordered for Wednesday; carotid dopplers which can be completed at Dr. Apple's office. She does not need dental clearance as she has full dentures. Lab work was ordered this morning. E. coli UTI being treated with Rocephin currently. Chest x-ray completed yesterday was reviewed. Complete smoking cessation was again reinforced. All questions answered. Objective - Vital Signs Vital signs: Vital Signs Temp 97.5 F L 02/27/24 04:07 Pulse 60 02/27/24 04:07 Resp 16 02/27/24 04:07 BP 95/60 02/27/24 04:07 Pulse Ox 97 02/27/24 04:07 FiO2 Intake & Output 02/26/24 02/27/24 02/27/24 18:59 06:59 18:59 Intake Total 242.597 240 Output Total 200 Balance 42.597 240 Weight 49.5 kg Intake: IV 10 Invasive Line 2 10 Intake, IV Titration 112.597 Amount Heparin Sod,Pork in 0.45% 62.597 NaCl 25,000 unit In 0.45 % NaCl 1 250ml.bag @ 12 UNITS/KG/HR 6.084 mls/hr IV .Q24H [facility]JIT Rx#: [id number] cefTRIAXone 1 gm In 50 Sodium Chloride 0.9% 50 ml @ 100 mls/hr IVPB Q24HR [facility]JIT Rx#:[id number] Oral 120 240 Output: Urine 200 Other: Voiding Method Toilet Toilet Bedside Commode Bedside Commode # Voids 1 - Exam CONSTITUTIONAL: Appears comfortable, cooperative, no acute distress RESPIRATORY: Lungs sounds diminished in the bases bilaterally. Respirations even, nonlabored. Currently on room air with oxygen saturation 97% CARDIOVASCULAR: S1, diminished S2 present, systolic murmur present. Regular rate and rhythm, sinus rhythm on telemetry. Palpable peripheral pulses bilaterally. No edema present GASTROINTESTINAL: Abdomen soft, nontender, nondistended. Active bowel sounds present 4 quadrants. Tolerating diet GENITOURINARY: Continues to void INTEGUMENTARY: Skin is warm and dry NEUROLOGIC: Cranial nerves II through XII intact MUSKULOSKELETAL: Able to move all extremities, strength equal bilaterally, gait normal PSYCHIATRIC: Alert and oriented to person place and time, appropriate affect, intact judgment and insight - Allied health notes Allied health notes reviewed: nursing - Labs CBC & Chem 7: 02/25/24 18:39 02/25/24 14:53 Labs: Abnormal Lab Results - Last 24 Hours (Table) 02/26/24 Range/Units 10:11 APTT 38.7 H (22.0-30.0) sec Microbiology - Last 24 Hours (Table) 02/24/24 11:00 Urine Culture - Final Urine,Voided Escherichia coli 02/25/24 07:42 Blood Culture - Preliminary Blood 02/25/24 07:35 Blood Culture - Preliminary Blood - Imaging and Cardiology Chest x-ray: report reviewed, image reviewed Assessment and Plan Assessment: Acute heart failure with preserved ejection fraction Paroxysmal atrial flutter present on admission, currently sinus Severe aortic valve stenosis of previous bioprosthetic aortic valve, peak velocity 6.1 m/s, peak/mean gradient 148/104 mmHg, aortic valve area 0.4 cm on TTE, status post balloon valvuloplasty Shortness of breath secondary to above Suprapubic pain, urinalysis positive for E. coli, treated with Rocephin History of bicuspid aortic valve stenosis status post bioprosthetic aortic valve replacement in May 2015, 21 mm Magna Ease aortic valve Paroxysmal atrial fibrillation status post cardioversion x 2 on [facility] outpatient for anticoagulation, last dose 02/23 AM Childhood asthma Left breast cancer in 2020 status post mastectomy with letrozole and radiation therapy Current tobacco dependence Family history of lung cancer and premature coronary artery disease Plan: Continue current medical therapy, continue medical optimization Patient will need redo aortic valve replacement, needs preoperative testing including heart catheterization, CT scan of the chest, carotid Dopplers, pulmonary function test Smoking cessation counseling and education provided, patient encouraged to quit smoking completely UTI treatment per Dr. Radha Carbajal will meet with the patient Wednesday with further discussion regarding surgery Continued medical management per internal medicine, cardiology More recommendations to follow
[2024-02-27 11:29] LABS: Basophils % (A) 1 %; Eosinophils # (A) 0.2 k/uL (0-0.7); Eosinophils % (A) 2 %; HCT 44.5 % (34.0-46.0); HGB 14.1 gm/dL (11.4-16.0); Hypochromasia Slight; Lymphocytes # (A) 0.8 k/uL (1.0-4.8); Lymphocytes % (A) 12 %; MCHC 31.7 g/dL (31.0-37.0); MCV 116.7 fL (80.0-100.0); Macrocytosis Marked; Mean Platelet Volume 8.8; Monocytes # (A) 0.7 k/uL (0-1.0); Monocytes % (A) 11 %; Neutrophils # (A) 4.9 k/uL (1.3-7.7); Neutrophils % (A) 72 %; Platelet Count 169 k/uL (150-450); RBC 3.81 m/uL (3.80-5.40); RDW 14.6 % (11.5-15.5); WBC 6.7 k/uL (3.8-10.6)
[2024-02-27 11:41] LABS: ALT 30 U/L (4-34); AST 67 U/L (14-36); African American GFR (CKD) >90 (>60 ml/min/1.73 sqM); Albumin 3.6 g/dL (3.5-5.0); Alkaline Phosphatase 118 U/L (38-126); Anion Gap 8 mmol/L; Blood Urea Nitrogen 12 mg/dL (7-17); Calcium 9.6 mg/dL (8.4-10.2); Carbon Dioxide 32 mmol/L (22-30); Chloride 95 mmol/L (98-107); Glucose 86 mg/dL (74-99); Magnesium 1.5 mg/dL (1.6-2.3); Non-African American GFR(CKD) >90 (>60 ml/min/1.73 sqM); Potassium 3.7 mmol/L (3.5-5.1); Sodium 135 mmol/L (137-145); Total Bilirubin 0.5 mg/dL (0.2-1.3)
[2024-02-27 11:49] LABS: NT-Pro-B-Type Natriuretic Pept 2680 pg/mL
--- NOTE | 2024-02-27 12:45 | P.PN ---
Subjective Ivis 63-year-old female with known history of aortic valve stenosis. Came in the emergency room with increased shortness of breath edema. She has a history of atrial fibrillation she is found to be in acute pulm edema. Cardiology was consulted and did a balloon aortic valvuloplasty. Currently she feels much better. Vital signs are stable. Today show no anemia there is some macrocytosis. Chemistries are essentially normal. Cardiology believe she can go home tomorrow. Cardiothoracic surgery working up for an aortic valve replacement revision. She had a previous valve replacement 2015. She is to undergo some other testing today. Meet with the surgeon tomorrow. She is a current smoker. Objective - Vital Signs Vital signs: Vital Signs Temp 97.8 F 02/27/24 12:09 Pulse 70 02/27/24 12:09 Resp 16 02/27/24 12:09 BP 102/62 02/27/24 12:09 Pulse Ox 94 L 02/27/24 12:09 FiO2 Intake & Output 02/26/24 02/27/24 02/27/24 18:59 06:59 18:59 Intake Total 242.597 240 250 Output Total 200 Balance 42.597 240 250 Weight 49.5 kg Intake: IV 10 10 Invasive Line 2 10 10 Intake, IV Titration 112.597 Amount Heparin Sod,Pork in 0.45% 62.597 NaCl 25,000 unit In 0.45 % NaCl 1 250ml.bag @ 12 UNITS/KG/HR 6.084 mls/hr IV .Q24H [facility]JIT Rx#: [id number] cefTRIAXone 1 gm In 50 Sodium Chloride 0.9% 50 ml @ 100 mls/hr IVPB Q24HR HARJIT Rx#:[id number] Oral 120 240 240 Output: Urine 200 Other: Voiding Method Toilet Toilet Toilet Bedside Commode Bedside Commode Bedside Commode # Voids 1 - Exam General: The patient is awake and alert, in no distress, and does not appear acutely ill. Neck: The neck is supple, there is no thyromegaly, lymphadenopathy, tenderness or JVD. Cardiovascular: S1S2 is normal, There is a regular rate and rhythm. No, rub or gallop is appreciated. 2/6 systolic murmur at the right sternal border consistent with aortic stenosis Respiratory: Lungs are clear to auscultation bilaterally, respirations are non-labored, breath sounds are equal. Gastrointestinal: Soft, non-distended, non-tender abdomen without masses or organomegaly noted. There is no rebound or guarding present. Bowel sounds are unremarkable. Musculoskeletal: Normal ROM, no tenderness, There is no pedal edema. There is no calf tenderness or swelling. No cords were appreciated. Neurological: CN II-XII intact, there are no obvious motor or sensory deficits. Coordination appears grossly intact. Speech is normal. Skin: Skin is warm and dry and no rashes or lesions are noted. - Labs CBC & Chem 7: 02/27/24 09:33 02/27/24 09:33 Labs: Abnormal Lab Results - Last 24 Hours (Table) 02/27/24 02/27/24 Range/Units 09:33 09:33 MCV 116.7 H (80.0-100.0) fL MCH 37.0 H (25.0-35.0) pg Lymphocytes # 0.8 L (1.0-4.8) k/uL Macrocytosis Marked A Sodium 135 L (137-145) mmol/L Chloride 95 L (98-107) mmol/L Carbon Dioxide 32 H (22-30) mmol/L Magnesium 1.5 L (1.6-2.3) mg/dL AST 67 H (14-36) U/L Total Protein 6.0 L (6.3-8.2) g/dL Microbiology - Last 24 Hours (Table) 02/24/24 11:00 Urine Culture - Final Urine,Voided Escherichia coli 02/25/24 07:42 Blood Culture - Preliminary Blood 02/25/24 07:35 Blood Culture - Preliminary Blood Assessment and Plan (1) H/O bicuspid aortic valve Current Visit: Yes Status: Acute Code(s): Z87.74 - PERSONAL HISTORY OF CONGENITAL MALFORM OF HEART AND CIRC SYS SNOMED Code(s): 676470469 (2) Acute diastolic congestive heart failure due to valvular disease Current Visit: Yes Status: Acute Code(s): I50.31 - ACUTE DIASTOLIC (CONGESTIVE) HEART FAILURE; I38 - ENDOCARDITIS, VALVE UNSPECIFIED SNOMED Code(s): 17262670 (3) Acute pulmonary edema Current Visit: Yes Status: Acute Code(s): J81.0 - ACUTE PULMONARY EDEMA SNOMED Code(s): 45878943 (4) Atrial fibrillation and flutter Current Visit: Yes Status: Acute Code(s): I48.91 - UNSPECIFIED ATRIAL FIBRILLATION; I48.92 - UNSPECIFIED ATRIAL FLUTTER SNOMED Code(s): 88103372 (5) H/O malignant neoplasm of breast Current Visit: No Status: Acute Code(s): Z85.3 - PERSONAL HISTORY OF MALIGNANT NEOPLASM OF BREAST SNOMED Code(s): 012180545 (6) MCFP current use of anticoagulant Current Visit: No Status: Acute Code(s): Z79.01 - DIE MAKER BENCH STAMPING (CURRENT) USE OF ANTICOAGULANTS SNOMED Code(s): 754224664 (7) Nicotine dependence Current Visit: No Status: Acute Code(s): F17.200 - NICOTINE DEPENDENCE, UNSPECIFIED, UNCOMPLICATED SNOMED Code(s): 87129104 (8) S/P AVR Current Visit: No Status: Acute Code(s): Z95.2 - PRESENCE OF PROSTHETIC HEART VALVE SNOMED Code(s): 6286887782798 (9) Troponin level elevated Current Visit: No Status: Acute Code(s): R79.89 - OTHER SPECIFIED ABNORMAL FINDINGS OF BLOOD CHEMISTRY SNOMED Code(s): 659427899 (10) Macrocytosis Current Visit: Yes Status: Acute Code(s): D75.89 - OTHER SPECIFIED DISEASES OF BLOOD AND BLOOD-FORMING ORGANS SNOMED Code(s): 151978334 Plan: On further recommendations from cardiology and cardiothoracic surgery. Most likely she will have aortic valve replacement soon. She is planning being discharged home initially and then following up shortly for this. Smoking cessation was discussed with her at length.
--- NOTE | 2024-02-27 13:30 | P.PN ---
Subjective HISTORY OF PRESENT ILLNESS: Patient examined this morning the bedside. She is status post balloon valvuloplasty with Dr. Elaine. Patient currently denies any chest pain or pressure. She denies any shortness of breath. Vital signs are stable. PHYSICAL EXAM: VITAL SIGNS: Reviewed. GENERAL: Well-developed in no acute distress. NECK: Supple. No JVD or thyromegaly LUNGS: Respirations even and unlabored. Lungs essentially clear to auscultation bilaterally. HEART: Regular rate and rhythm. S1 and S2 heard. Systolic murmur noted EXTREMITIES: Normal range of motion. No clubbing or cyanosis. Peripheral pulses intact. No lower extremity edema ASSESSMENT: Acute heart failure with preserved EF Paroxysmal typical atrial flutter Severe aortic stenosis of previous bioprosthetic aortic valve, status post balloon valvuloplasty Urinary tract infection History of bicuspid aortic valve with bioprosthetic aortic valve replacement, 2016 History of paroxysmal atrial fibrillation with previous cardioversion x 2 History of breast cancer Nicotine dependence PLAN: Continue current cardiac medications Continue telemetry monitoring CT surgery is following. Solomon to speak with patient tomorrow regarding surgery Further recommendations pending patient course Nurse practitioner note has been reviewed by physician. Signing provider agrees with the documented findings, assessment, and plan of care documented by TRANSPORTATION ENGINEER as a scribe. Objective - Vital Signs Vital signs: Vital Signs Temp 97.8 F 02/27/24 12:09 Pulse 70 02/27/24 12:09 Resp 16 02/27/24 12:09 BP 102/62 02/27/24 12:09 Pulse Ox 94 L 02/27/24 12:09 FiO2 Intake & Output 02/26/24 02/27/24 02/27/24 18:59 06:59 18:59 Intake Total 242.597 240 260 Output Total 200 Balance 42.597 240 260 Weight 49.5 kg Intake: IV 10 20 Invasive Line 2 10 20 Intake, IV Titration 112.597 Amount Heparin Sod,Pork in 0.45% 62.597 NaCl 25,000 unit In 0.45 % NaCl 1 250ml.bag @ 12 UNITS/KG/HR 6.084 mls/hr IV .Q24H [facility]JIT Rx#: [id number] cefTRIAXone 1 gm In 50 Sodium Chloride 0.9% 50 ml @ 100 mls/hr IVPB Q24HR HARJIT Rx#:[id number] Oral 120 240 240 Output: Urine 200 Other: Voiding Method Toilet Toilet Toilet Bedside Commode Bedside Commode Bedside Commode # Voids 1 - Labs CBC & Chem 7: 02/27/24 09:33 02/27/24 09:33 Labs: Abnormal Lab Results - Last 24 Hours (Table) 02/27/24 02/27/24 Range/Units 09:33 09:33 MCV 116.7 H (80.0-100.0) fL MCH 37.0 H (25.0-35.0) pg Lymphocytes # 0.8 L (1.0-4.8) k/uL Macrocytosis Marked A Sodium 135 L (137-145) mmol/L Chloride 95 L (98-107) mmol/L Carbon Dioxide 32 H (22-30) mmol/L Magnesium 1.5 L (1.6-2.3) mg/dL AST 67 H (14-36) U/L Total Protein 6.0 L (6.3-8.2) g/dL Microbiology - Last 24 Hours (Table) 02/25/24 07:42 Blood Culture - Preliminary Blood 02/25/24 07:35 Blood Culture - Preliminary Blood 02/24/24 11:00 Urine Culture - Final Urine,Voided Escherichia coli
[2024-02-27 22:50] LABS: Chol/HDL Ratio 2.23 Ratio; LDL Cholesterol,Calculated 41.8 mg/dL (0.0-131.0)
[2024-02-27 22:51] LABS: Hepatitis A Antibody IgM Nonreactive (Nonreactive); Hepatitis B Core IgM Nonreactive (Nonreactive); Hepatitis B Surface Antigen Nonreactive (Nonreactive); Hepatitis C IgG Antibody Nonreactive (Nonreactive)
[2024-02-28 04:51] VITALS: RESP 18
--- NOTE | 2024-02-28 09:09 | PN ---
PROGRESS NOTE DATE OF SERVICE: 02/26/2024 Ivis is a 63-year-old lady with history of aortic valve replacement and paroxysmal atrial fibrillation, who presented to hospital with atrial fibrillation with RVR, hypotension, and new onset pulmonary edema. A 2D echo revealed severe prosthetic valve stenosis. I performed a HANANE and she subsequently underwent a balloon valvuloplasty with significant improvement in the gradients across the aortic valve. The mean gradient went from 95 mm to 34 mm, and post valvuloplasty. An aortic root angiogram reveals 1+ aortic regurgitation. EXAM: GENERAL: She is comfortable at rest. VITAL SIGNS: Stable. There is no jugular venous distention. CHEST: Reveals good air entry bilaterally. HEART: Reveals first and second heart sounds. An ejection systolic murmur in the aortic area that has improved significantly since the valvuloplasty. ABDOMEN: Soft. EXTREMITIES: Did not reveal any edema. Peripheral pulses are felt. ASSESSMENT AND PLAN: 1. Prosthetic valve stenosis status post balloon valvuloplasty. 2. Paroxysmal atrial fibrillation, currently in sinus rhythm. PLAN: I am going to give her a dose of Lasix and put her on daily dose of Lasix. Continue the amiodarone, restart a small dose of metoprolol, ambulate her, and hopefully, she will be discharged home tomorrow, 02/27/2024. MMODL / IJN: [id number] /
[2024-02-28 09:21] LABS: Basophils % (A) 1 %; Eosinophils # (A) 0.2 k/uL (0-0.7); Eosinophils % (A) 3 %; HCT 45.2 % (34.0-46.0); HGB 14.4 gm/dL (11.4-16.0); Hypochromasia Slight; Lymphocytes % (A) 19 %; MCHC 31.8 g/dL (31.0-37.0); MCV 116.4 fL (80.0-100.0); Macrocytosis Marked; Mean Platelet Volume 8.3; Monocytes # (A) 0.5 k/uL (0-1.0); Monocytes % (A) 9 %; Neutrophils # (A) 3.6 k/uL (1.3-7.7); Neutrophils % (A) 67 %; Platelet Count 165 k/uL (150-450); RBC 3.88 m/uL (3.80-5.40); RDW 14.4 % (11.5-15.5); WBC 5.4 k/uL (3.8-10.6)
[2024-02-28 09:35] LABS: African American GFR (CKD) >90 (>60 ml/min/1.73 sqM); Anion Gap 4 mmol/L; Blood Urea Nitrogen 12 mg/dL (7-17); Calcium 9.8 mg/dL (8.4-10.2); Carbon Dioxide 35 mmol/L (22-30); Chloride 96 mmol/L (98-107); Glucose 121 mg/dL (74-99); Magnesium 1.5 mg/dL (1.6-2.3); Non-African American GFR(CKD) >90 (>60 ml/min/1.73 sqM); Potassium 3.8 mmol/L (3.5-5.1); Sodium 135 mmol/L (137-145)
--- NOTE | 2024-02-28 09:48 | P.PN ---
Subjective Progress Note Date: 02/28/24 Principal diagnosis: Acute heart failure with preserved ejection fraction, paroxysmal atrial flutter present on admission, severe aortic valve stenosis of previous bioprosthetic ao rtic valve, UTI. History of bicuspid aortic valve stenosis status post bioprosthetic aortic valve replacement in May 2015, 21 mm Magna Ease aortic valve, paroxysmal atrial fibrillation status post cardioversion x 2 on [facility] outpatient for anticoagulation, , childhood asthma, left breast cancer in 2020 status post mastectomy with letrozole and radiation therapy, current tobacco dependence, family history of lung cancer and premature coronary artery disease POD #3 balloon aortic valvuloplasty The patient was seen and examined this morning laying in bed on the cardiac stepdown unit in no acute distress. Currently on room air, hemodynamically stable. Denies pain or shortness of breath at this time. Will plan for elective aortic valve replacement after patient has been medically optimized and preoperative testing has been completed. She does still need heart catheterization and carotid dopplers. Chest CTA been completed today. Labs reviewed, pro-BNP decreased from 27,600 on admit to 2680 yesterday. She does not need dental clearance as she has full dentures. E. coli UTI being treated with Rocephin currently. Complete smoking cessation was again reinforced. All questions answered. Objective - Vital Signs Vital signs: Vital Signs Temp 98.0 F 02/27/24 20:00 Pulse 65 02/28/24 04:45 Resp 18 02/28/24 04:45 BP 97/54 02/28/24 04:45 Pulse Ox 95 02/28/24 04:45 FiO2 Intake & Output 02/27/24 02/28/24 02/28/24 18:59 06:59 18:59 Intake Total 500 10 240 Balance 500 10 240 Weight 49.3 kg Intake: IV 20 10 Invasive Line 2 20 10 Oral 480 240 Other: Voiding Method Toilet Toilet Bedside Commode - Exam CONSTITUTIONAL: Appears comfortable, cooperative, no acute distress RESPIRATORY: Lungs sounds diminished in the bases bilaterally. Respirations even, nonlabored. Currently on room air with oxygen saturation 95% CARDIOVASCULAR: S1, diminished S2 present, systolic murmur present. Regular rate and rhythm, sinus rhythm on telemetry. Palpable peripheral pulses bilaterally. No edema present GASTROINTESTINAL: Abdomen soft, nontender, nondistended. Active bowel sounds present 4 quadrants. Tolerating diet GENITOURINARY: Continues to void INTEGUMENTARY: Skin is warm and dry NEUROLOGIC: Cranial nerves II through XII intact MUSKULOSKELETAL: Able to move all extremities, strength equal bilaterally, gait normal PSYCHIATRIC: Alert and oriented to person place and time, appropriate affect, intact judgment and insight - Allied health notes Allied health notes reviewed: nursing - Labs CBC & Chem 7: 02/27/24 09:33 02/28/24 08:23 Labs: Abnormal Lab Results - Last 24 Hours (Table) 02/27/24 02/27/24 02/28/24 Range/Units 09:33 09:33 08:23 MCV 116.7 H (80.0-100.0) fL MCH 37.0 H (25.0-35.0) pg Lymphocytes # 0.8 L (1.0-4.8) k/uL Macrocytosis Marked A Sodium 135 L 135 L (137-145) mmol/L Chloride 95 L 96 L (98-107) mmol/L Carbon Dioxide 32 H 35 H (22-30) mmol/L Glucose 121 H (74-99) mg/dL Magnesium 1.5 L 1.5 L (1.6-2.3) mg/dL AST 67 H (14-36) U/L Total Protein 6.0 L (6.3-8.2) g/dL Microbiology - Last 24 Hours (Table) 02/25/24 07:42 Blood Culture - Preliminary Blood 02/25/24 07:35 Blood Culture - Preliminary Blood Assessment and Plan Assessment: Acute heart failure with preserved ejection fraction Paroxysmal atrial flutter present on admission, currently sinus Severe aortic valve stenosis of previous bioprosthetic aortic valve, peak velocity 6.1 m/s, peak/mean gradient 148/104 mmHg, aortic valve area 0.4 cm on TTE, status post balloon valvuloplasty Shortness of breath secondary to above Suprapubic pain, urinalysis positive for E. coli, treated with Rocephin History of bicuspid aortic valve stenosis status post bioprosthetic aortic valve replacement in May 2015, 21 mm Magna Ease aortic valve Paroxysmal atrial fibrillation status post cardioversion x 2 on [facility] outpatient for anticoagulation, last dose 02/23 AM Childhood asthma Left breast cancer in 2020 status post mastectomy with letrozole and radiation therapy Current tobacco dependence, FEV 1 44% of predicted Family history of lung cancer and premature coronary artery disease Plan: Continue current medical therapy, continue medical optimization Patient will need redo aortic valve replacement, needs heart catheterization, carotid Dopplers CTA of chest to be completed today 5 meter walk test completed, #1 4.05 sec, #2 4.25 sec, #3 4.45 sec. Patient tolerated without difficulty Tentative STS risk score (as we are still waiting on heart catheterization and carotid dopplers) calculated and discussed with patient Smoking cessation counseling and education provided, patient encouraged to quit smoking completely UTI treatment per Dr. Radha Carbajal will meet with the patient today with further discussion regarding surgery Continued medical management per internal medicine, cardiology Once patient has had CTA and met with Dr. Carbajal she is cleared for discharge from our standpoint. Heart cath to be scheduled by Dr. Apple, carotid dopplers to be completed at Dr. Apple's office. More recommendations to follow
--- NOTE | 2024-02-28 12:02 | P.PN ---
Subjective Progress Note Date: 02/28/24 PROGRESS NOTE The patient is a 63-year-old female, history of recurrent atrial fibrillation and atrial flutter, status post aortic valve replacement with bioprosthetic valve who presented with symptoms of progressive dyspnea and was found to have severe bioprosthetic aortic valve stenosis. Her ejection fraction was 50 to 55%. Because of her persistent symptoms she underwent balloon valvuloplasty with improvement in her hemodynamics. She continues to be in sinus mechanism and feels much better. She denies any chest discomfort, dizziness or palpitations. She is scheduled to be seen by Dr. Carbajal today for plans for redo surgery for her aortic valve stenosis. She continues to be in sinus mechan ism. Medications: Amiodarone 400 mg twice a day, Eliquis 5 mg twice a day, metoprolol succinate 25 mg daily, Lasix 20 mg daily, Lipitor 20 mg daily PHYSICAL EXAMINATION: Blood pressure 97/50 heart rate 65 LUNGS: Clear to auscultation HEART: Regular rate and rhythm, S1, S2. No S3. Systolic ejection murmur ABDOMEN: Soft, nontender, no organomegaly EXTREMETIES: No edema LAB: Hemoglobin 14.4, BUN 12, creatinine 0.7 IMPRESSION: 1. Severe bioprosthetic aortic valve stenosis status post valvuloplasty 2. Paroxysmal atrial fibrillation and atrial flutter, status post cardioversion, maintaining sinus mechanism 3. Hyperlipidemia 4. Episodes of hypotension PLAN: 1. Awaiting the input of Dr. Carbajal regarding the timing of surgery 2. The patient will require coronary angiography prior to her valve surgery 3. Continue rest of her medications 4. Continue telemetry Objective - Vital Signs Vital signs: Vital Signs Temp 98.0 F 02/27/24 20:00 Pulse 65 02/28/24 04:45 Resp 18 02/28/24 04:45 BP 97/54 02/28/24 04:45 Pulse Ox 95 02/28/24 04:45 FiO2 Intake & Output 02/27/24 02/28/24 02/28/24 18:59 06:59 18:59 Intake Total 500 10 240 Balance 500 10 240 Weight 49.3 kg Intake: IV 20 10 Invasive Line 2 20 10 Oral 480 240 Other: Voiding Method Toilet Toilet Bedside Commode - Labs CBC & Chem 7: 02/28/24 08:23 02/28/24 08:23 Labs: Abnormal Lab Results - Last 24 Hours (Table) 02/28/24 02/28/24 Range/Units 08:23 08:23 MCV 116.4 H (80.0-100.0) fL MCH 37.0 H (25.0-35.0) pg Macrocytosis Marked A Sodium 135 L (137-145) mmol/L Chloride 96 L (98-107) mmol/L Carbon Dioxide 35 H (22-30) mmol/L Glucose 121 H (74-99) mg/dL Magnesium 1.5 L (1.6-2.3) mg/dL Microbiology - Last 24 Hours (Table) 02/25/24 07:42 Blood Culture - Preliminary Blood 02/25/24 07:35 Blood Culture - Preliminary Blood
--- NOTE | 2024-02-28 12:40 | CT ---
EXAMINATION TYPE: CT TAVR Planning DATE OF EXAM: 02/28/2024 COMPARISON: CT chest abdomen and pelvis 07/19/2019 CLINICAL INDICATION: Female, 63 years old with history of pre AVR planning; TAVR planning TECHNIQUE: CT scan of the Neck, chest, abdomen and pelvis is performed with IV contrast; Helical imaging obtaine d through the chest, abdomen and pelvis during arterial phase dynamic administration of radiographic contrast intravenously. CONTRAST: 125 mL of Isovue 370. CT DLP: 1529.30 mGycm, Automated exposure control for dose reduction was used. FINDINGS: See report from [facility] regarding preprocedural planning HEART AND PERICARDIUM: Mildly enlarged. Aortic valve prosthesis. There is no pericardial effusion. ARTERIAL VASCULATURE: Mild atherosclerotic calcification of the aorta and its branches. Ascending aortic aneurysm measuring up to 4.5 cm. Previously 4.2 cm. The aortic root measures up to 3.4 cm. The descending thoracic aort a measures up to 2.2 cm. The pulmonary outflow tract appears within normal limits for size. The thor acic aorta is normal in course and caliber. There is no evidence of aortic dissection, aneurysm or ac [place] aortic injury. Great arch vessels patent and normal in course and caliber. PULMONARY ARTERIAL VASCULATURE: Normal caliber., No evidence for central filling defect. NECK AND THYROID: No significant findings. The carotid bifurcations are patent. CHEST: LUNGS: No pleural effusion or pneumothorax. Minimal bilateral lower lobe subsegmental atelectasis. Me dial right middle lobe at lingular scarring and/or atelectasis. Moderate centrilobular emphysematous changes. Right lower lobe 4 mm pulmonary nodule (series 14, image 58). LARGE AIRWAYS: Central airways are patent. PLEURAL: No pleural effusion or thickening. No pneumothorax. MEDIASTINUM AND DANYA: Stable mildly enlarged precarinal lymph node measuring up to 1.3 cm short axis. SOFT TISSUES/LYMPH NODES: Left mastectomy with breast prosthesis. MUSCULOSKELETAL: No acute osseous abnormalities. Median sternotomy wires. ABDOMEN/PELVIS: Please note arterial phase of the imaging limits detailed evaluation of the solid abdominal organs. ABDOMEN LIVER: Unremarkable GALLBLADDER AND BILE DUCTS: Unremarkable. PANCREAS: Unremarkable. SPLEEN: Unremarkable. ADRENAL GLANDS: Unremarkable. KIDNEYS AND URETERS: No evidence of hydronephrosis or renal calculus. The kidneys enhance symmetrica lly. Left upper pole renal cyst measuring up to 5.0 cm. PELVIS BLADDER: Unremarkable REPRODUCTIVE: Unremarkable. ABDOMEN & PELVIS STOMACH AND BOWEL: No significant findings. No evidence of bowel obstruction. PERITONEUM/RETROPERITONEUM: No evidence of pneumoperitoneum or free fluid. VASCULATURE: No evidence of abdominal aortic aneurysm. Atherosclerotic calcification of the aorta and its branches. MUSCULOSKELETAL: No acute osseous abnormalities LYMPH NODES: No evidence for lymphadenopathy. SOFT TISSUE/ABDOMINAL WALL: Unremarkable Other Lines/Tubes/Devices/Hardware: None IMPRESSION: 1. Aortic valvular prosthesis. 2. No acute process. 3. Increased size of ascending aortic aneurysm measuring up to 4.5 cm, previously 4.2 cm. 4. Moderate COPD changes. 5. See report from [employer] regarding preprocedural planning [facility], , 02/28/2024 12:37 PM
[2024-02-28 12:44] VITALS: BMI 18.6
--- NOTE | 2024-02-28 13:20 | P.DS ---
Providers Date of admission: 02/22/24 12:16 Expected date of discharge: 02/28/24 Attending physician: Mil Garcia Consults: 02/22/24 12:14 Consult Physician Routine Consulting Provider: [facility] Consult Reason/Comments: Acute pulmonary edema Do you want consulting provider notified?: Yes 02/24/24 17:42 Consult Physician Routine Consulting Provider: Khurram Carbajal Consult Reason/Comments: valve stenosis Do you want consulting provider notified?: Already Contacted Primary care physician: Mil Garcia - Discharge Diagnosis(es) (1) H/O bicuspid aortic valve Current Visit: Yes Status: Acute (2) Acute diastolic congestive heart failure due to valvular disease Current Visit: Yes Status: Acute (3) Acute pulmonary edema Current Visit: Yes Status: Acute (4) Atrial fibrillation and flutter Current Visit: Yes Status: Acute (5) H/O malignant neoplasm of breast Current Visit: No Status: Acute (6) 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 She has a bioprosthetic aortic valve. She also has history of A-fib. She has no complaints today. When she is seen by cardiothoracic surgery she will be discharged home. With plans for her to return for a valvuloplasty repeat soon. Plan - Discharge Summary New Discharge Prescriptions: New Metoprolol Succinate (ER) [Toprol XL] 25 mg PO DAILY tab Amiodarone [Cordarone] 400 mg PO BID #60 tab Apixaban [Eliquis] 5 mg PO BID tab Furosemide [Lasix] 20 mg PO DAILY #30 tab Continue Apixaban [Eliquis] 5 mg PO BID Atorvastatin [Lipitor] 20 mg PO DAILY Vitamin E (Dl,Tocopheryl Acet) [Vitamin E (400 Iu = 180 mg)] 400 unit PO DAILY Multivitamins, Thera [Multivitamin (formulary)] 1 tab PO DAILY Metoprolol Tartrate [Lopressor] 25 mg PO DAILY Cholecalciferol [Vitamin D3 (125 Mcg = 5000 Iu)] 125 mcg PO DAILY Discharge Medication List Apixaban [Eliquis] 5 mg PO BID 05/07/23 [History] Atorvastatin [Lipitor] 20 mg PO DAILY 12/06/23 [History] Cholecalciferol [Vitamin D3 (125 Mcg = 5000 Iu)] 125 mcg PO DAILY 02/22/24 [History] Metoprolol Tartrate [Lopressor] 25 mg PO DAILY 02/22/24 [History] Multivitamins, Thera [Multivitamin (formulary)] 1 tab PO DAILY 02/22/24 [History] Vitamin E (Dl,Tocopheryl Acet) [Vitamin E (400 Iu = 180 mg)] 400 unit PO DAILY 02/22/24 [History] Amiodarone [Cordarone] 400 mg PO BID #60 tab 02/28/24 [Rx] Apixaban [Eliquis] 5 mg PO BID tab 02/28/24 [Rx] Furosemide [Lasix] 20 mg PO DAILY #30 tab 02/28/24 [Rx] Metoprolol Succinate (ER) [Toprol XL] 25 mg PO DAILY tab 02/28/24 [Rx] Follow up Appointment(s)/Referral(s): Khurram Carbajal MD [STAFF PHYSICIAN] - 03/09/24 2:30 pm () Vahid Apple MD [STAFF PHYSICIAN] - 1 Week (needs to have carotid dopplers completed for aortic valve replacement) Mil Garcia Jr, DO [Primary Care Provider] - 1 Week Discharge Disposition: HOME SELF-CARE
[2024-02-28 14:27] VITALS: BP 105/69; PULSE 105; TEMP 97.6
== END 2024-02-28 15:09 | disposition home or self-care (01) | DRG 175 ==
LOC: EC 09:11 → 3SCARD 12:16
PROVIDERS: ADMIT Family Medicine; ATTEND Family Medicine
PROC: 3E033RZ Introduction of Antiarrhythmic into Peripheral Vein, Percutaneous Approach (ICD-10-PCS; 2024-02-24)
PROC: 5A1223Z Performance of Cardiac Pacing, Continuous (ICD-10-PCS; 2024-02-25)
PROC: 04QL3ZZ Repair Left Femoral Artery, Percutaneous Approach (ICD-10-PCS; 2024-02-25)
PROC: 027F3ZZ Dilation of Aortic Valve, Percutaneous Approach (ICD-10-PCS; principal; 2024-02-25 10:40)
PROC: B3101ZZ Fluoroscopy of Thoracic Aorta using Low Osmolar Contrast (ICD-10-PCS; 2024-02-25 21:15)
PROC: B24BZZ4 Ultrasonography of Heart with Aorta, Transesophageal (ICD-10-PCS; 2024-02-25 21:15)
DX: T82.857A Stenosis of other cardiac prosthetic devices, implants and grafts, initial encounter (principal); I50.33 Acute on chronic diastolic (congestive) heart failure; I48.0 Paroxysmal atrial fibrillation; I48.3 Typical atrial flutter; F17.210 Nicotine dependence, cigarettes, uncomplicated; D75.89 Other specified diseases of blood and blood-forming organs; J45.909 Unspecified asthma, uncomplicated; M19.90 Unspecified osteoarthritis, unspecified site; I35.2 Nonrheumatic aortic (valve) stenosis with insufficiency; E78.5 Hyperlipidemia, unspecified; I95.9 Hypotension, unspecified; N39.0 Urinary tract infection, site not specified; B96.20 Unspecified Escherichia coli [E. coli] as the cause of diseases classified elsewhere; Y83.1 Surgical operation with implant of artificial internal device as the cause of abnormal reaction of the patient, or of later complication, without mention of misadventure at the time of the procedure; Z85.3 Personal history of malignant neoplasm of breast; Z79.01 Long term (current) use of anticoagulants; Z95.3 Presence of xenogenic heart valve; Z79.899 Other long term (current) drug therapy; Z90.12 Acquired absence of left breast and nipple; Z92.3 Personal history of irradiation
CPT/HCPCS: 33210; 36221; 36415; 71045; 71046; 71275; 74174; 77001; 80048; 80053; 80061; 80074; 81001; 83036; 83605; 83735; 83880; 84443; 84484; 85025; 85610; 85730; 87040; 87077; 87086; 87186; 92986; 93005; 93306; 93312; 93320; 93325; 94150; 94760; 96374; 96376; 99285

== ENCOUNTER 2024-03-16 06:07 | Day surgery (SDC) | payer OTHER ==
[2024-03-16] MEDS: SODIUM CHLORIDE 0.9% 1,000 ML IV ONE (06:53)
[2024-03-16] MEDS ORDERED: SODIUM CHLORIDE 0.9% 1,000 ML in EMPTY BAG 1 BAG IV SCH (06:56)
[2024-03-16] MEDS ORDERED: HEPARIN SODIUM,PORCINE 10,000 UNIT in SODIUM CHLORIDE 0.9% 1,000 ML IRRIGATION PRN (06:56)
[2024-03-16] MEDS ORDERED: ASPIRIN 325 MG TAB PO STA (06:56)
[2024-03-16] MEDS ORDERED: NITROGLYCERIN SL TABS 0.4 MG TAB SUBLINGUAL PRN (06:56)
[2024-03-16] MEDS ORDERED: HEPARIN SODIUM,PORCINE (1 ML) 2,500 UNIT in SODIUM CHLORIDE 0.9% 250 ML IRRIGATION PRN (06:56)
[2024-03-16] MEDS ORDERED: ALPRAZolam 0.5 MG TAB PO PRN (06:56)
[2024-03-16] MEDS ORDERED: ALPRAZolam 0.25 MG TAB PO PRN (06:56)
[2024-03-16 07:21] VITALS: RESP 16; TEMP 97.1
[2024-03-16] MEDS: fentaNYL (PF) 50 MCG/ML 2 ML AMP IVP ONE (07:30)
[2024-03-16] MEDS: MIDAZOLAM 2 MG/2 ML VIAL IVP ONE (07:30)
[2024-03-16] MEDS: LIDOCAINE 1% INJ 10MG/ML (20 ML MDV) SQ ONE ×2 (07:31→07:32)
[2024-03-16] MEDS: VERAPAMIL SYRINGE (5 MG/10 ML) INTRAARTER ONE (07:36)
[2024-03-16] MEDS: HEPARIN SODIUM 1,000 UN/ML (10ML VL) IVP ONE (07:40)
[2024-03-16] MEDS: IOPAMIDOL-370 100ML BTL INJ ONE (07:46)
[2024-03-16] MEDS: IV FLUID CONTINUATION 950 ML IV ONE (07:46)
[2024-03-16] MEDS: HEPARIN SODIUM,PORCINE (1 ML) 2,500 UNIT in SODIUM CHLORIDE 0.9% 250 ML IRRIGATION ONE (07:47)
[2024-03-16] MEDS: HEPARIN SODIUM,PORCINE 10,000 UNIT in SODIUM CHLORIDE 0.9% 1,000 ML IRRIGATION ONE (07:47)
[2024-03-16] MEDS ORDERED: RX INFO: IV CONTRAST WAS GIVEN 1 EACH MISC MISCELLANE PRN (08:03)
[2024-03-16] MEDS ORDERED: SODIUM CHLORIDE 0.9% 1,000 ML IV SCH (08:15)
--- NOTE | 2024-03-16 08:55 | CC ---
CARDIAC CATHETERIZATION REPORT PROCEDURE PERFORMED: Cardiac catheterization. INDICATION: Prosthetic aortic valve stenosis. PROCEDURE NOTE: After obtaining informed consent, left heart catheterization and coronary angiogram were performed via the right radial artery using standard Phu catheters. The patient tolerated the procedure well without any obvious immediate complications. A TR band will be used for hemostasis. The patient received moderate conscious sedation. Total sedation time was 17 minutes. Right radial artery access was obtained using Seldinger technique. A 6-Romansh sheath was placed. Catheters and wires were floated into the ascending aorta under fluoroscopic guidance. The patient received verapamil and heparin per protocol. FINDINGS: 1. HEMODYNAMICS: Central aortic pressure is 120/60 mm. 2. LEFT VENTRICULOGRAM: Left ventriculogram is not performed. 3. ANGIOGRAPHIC DATA: a.Right coronary artery: Right coronary artery is a large dominant vessel. There is a 30% to 40% stenosis involving mid RCA. b.Left main coronary artery is a normal-sized vessel and is free of stenosis. Divides into left anterior descending coronary artery and circumflex coronary artery. c.LAD and its branches, circumflex coronary artery and its branches are free of significant stenosis. CONCLUSION: Mild nonobstructive disease involving right coronary artery. PLAN: The patient is scheduled to undergo aortic valve replacement with Dr. Carbajal over the next 2 to 3 weeks. MMODL / IJN: [id number] /
[2024-03-16 19:45] VITALS: BP 111/55; PULSE 56
== END 2024-03-16 12:06 | disposition home or self-care (01) ==
LOC: CATHCVL 06:07
PROVIDERS: ATTEND Internal Medicine Cardiovascular Disease
DX: T82.857A Stenosis of other cardiac prosthetic devices, implants and grafts, initial encounter (principal); I25.10 Atherosclerotic heart disease of native coronary artery without angina pectoris; I35.0 Nonrheumatic aortic (valve) stenosis; I48.3 Typical atrial flutter; Z79.82 Long term (current) use of aspirin; Z79.01 Long term (current) use of anticoagulants; Z79.899 Other long term (current) drug therapy; Y83.8 Other surgical procedures as the cause of abnormal reaction of the patient, or of later complication, without mention of misadventure at the time of the procedure
CPT/HCPCS: 93454; C1769 ×2; C1894; J2250; J1644 ×3; J2003; J3010; Q9967